=== PATIENT | male | born 1935 | race Two or more races ===

== ENCOUNTER 2021-06-07 11:47 | Inpatient (IN) | payer MEDICARE, OTHER ==
[~2021-06-07] VITALS: Ht 157.5 cm; Wt 87.1 kg
[~2021-06-07 11:47] MED LIST: ENOXAPARIN SODIUM 80 MG/0.8 ML DISP.SYRIN SQ SCH
[2021-06-07 12:33] LABS: BASOPHILS % (AUTO) 0.2 % (0.0-2.0); EOSINOPHILS % (AUTO) 1.8 % (0.0-6.0); HEMATOCRIT 41 % (39-51); HEMOGLOBIN 13.1 g/dL (13.5-17.5); LYMPHOCYTES # (AUTO) 1.2 K/uL (0.8-4.8); LYMPHOCYTES % (AUTO) 9.2 % (20.0-44.0); MEAN CORPUSCULAR HGB CONC 32 g/dl (31.0-36.0); MEAN CORPUSCULAR VOLUME 92 fL (80-96); MONOCYTES # (AUTO) 1.4 K/uL (0.1-1.30); MONOCYTES % (AUTO) 10.6 % (2.0-12.0); NEUTROPHILS # (AUTO) 10.1 K/uL (1.8-8.9); NEUTROPHILS % (AUTO) 78.2 % (43.0-81.0); PLATELET COUNT (AUTO) 194 K/uL (150-450); RED BLOOD CELL COUNT(AUTO) 4.43 MIL/uL (4.5-6.0)
[2021-06-07] MEDS ORDERED: LISI10TA29 PO (13:05)
[2021-06-07] MEDS ORDERED: OMEP20CA15 PO (13:05)
[2021-06-07] MEDS ORDERED: SITA1TAB2 PO (13:05)
[2021-06-07] MEDS ORDERED: AZITHROMYCIN 500 MG in IV D5W 250 ML IV ONE (13:30)
[2021-06-07] MEDS ORDERED: ASPIRIN 81 MG TAB.CHEW PO ONE (13:30)
[2021-06-07] MEDS ORDERED: FUROSEMIDE 40 MG/4 ML VIAL IV ONE (13:30)
[2021-06-07 13:41] LABS: CALCIUM, SERUM 8.8 mg/dL (8.5-10.1); CARBON DIOXIDE 32 mmol/L (21-32); CHLORIDE 101 mmol/L (98-107); CREATININE 0.8 mg/dL (0.6-1.3); GLUCOSE 175 mg/dL (74-106); SODIUM SERUM 137 mmol/L (136-145); UREA NITROGEN, BLOOD 17 mg/dL (7-18)
[2021-06-07] MEDS: CEFTRIAXONE 1 G in IV D5W 50 ML IV ONE ×2 (13:45→14:45)
[2021-06-07] MEDS ORDERED: ASPIRIN 81 MG TAB.CHEW ONE (13:46)
[2021-06-07] MEDS ORDERED: FUROSEMIDE 40 MG/4 ML VIAL ONE (13:47)
[2021-06-07] MEDS ORDERED: MAGNESIUM HYDROXIDE 30 ML UDC PO PRN (15:30)
[2021-06-07] MEDS ORDERED: ENOXAPARIN SODIUM 40 MG/0.4 ML DISP.SYRIN SQ SCH (15:30)
[2021-06-07] MEDS ORDERED: Z GUARD REMEDY 4 OZ OINT TP PRN (15:30)
[2021-06-07] MEDS ORDERED: DEXTROSE 50%-WATER 50 ML DISP.SYRIN IV PRN (15:30)
[2021-06-07] MEDS ORDERED: ACETAMINOPHEN 325 MG TABLET PO PRN (15:30)
[2021-06-07] MEDS ORDERED: ONDANSETRON HCL/PF 4 MG/2 ML VIAL IVP PRN (15:30)
[2021-06-07] MEDS ORDERED: MAG HYDROX/AL HYDROX/SIMETH 30 ML UDC PO PRN (15:30)
[2021-06-07 16:00] VITALS: BP 137/78
[2021-06-07] MEDS: BLOOD SUGAR DIAGNOSTIC 1 EACH STRIP VI SCH ×2 (17:30→21:53)
[2021-06-07] MEDS: FUROSEMIDE 40 MG/4 ML VIAL IV SCH (17:43)
[2021-06-07] MEDS: NITROGLYCERIN PACKET 1 GM PACKET TOP SCH (18:32)
[2021-06-07] MEDS: INSULIN REGULAR, HUMAN 100 UNIT/ML 3 ML VIAL SQ PRN (18:34)
[2021-06-07 20:00] VITALS: BP 168/89
[2021-06-08] VITALS (7 sets, daily range): BP systolic 100–139; BP diastolic 59–74
[2021-06-08] MEDS: NITROGLYCERIN PACKET 1 GM PACKET TOP SCH ×5 (00:22→23:37)
[2021-06-08 06:31] LABS: BASOPHILS # (AUTO) 0.1 K/uL (0.0-0.2); BASOPHILS % (AUTO) 0.8 % (0.0-2.0); EOSINOPHILS % (AUTO) 2.8 % (0.0-6.0); HEMATOCRIT 40 % (39-51); HEMOGLOBIN 13.2 g/dL (13.5-17.5); LYMPHOCYTES # (AUTO) 1.8 K/uL (0.8-4.8); LYMPHOCYTES % (AUTO) 17.2 % (20.0-44.0); MEAN CORPUSCULAR HGB CONC 33 g/dl (31.0-36.0); MEAN CORPUSCULAR VOLUME 91 fL (80-96); MONOCYTES # (AUTO) 1.4 K/uL (0.1-1.30); MONOCYTES % (AUTO) 13.4 % (2.0-12.0); NEUTROPHILS # (AUTO) 6.7 K/uL (1.8-8.9); NEUTROPHILS % (AUTO) 65.8 % (43.0-81.0); PLATELET COUNT (AUTO) 189 K/uL (150-450); RED BLOOD CELL COUNT(AUTO) 4.43 MIL/uL (4.5-6.0); WHITE BLOOD COUNT (AUTO) 10.2 K/uL (4.3-11.0)
[2021-06-08] MEDS ORDERED: AMIODARONE 450 MG in IV D5W 250 ML IV PRN (07:30)
[2021-06-08] MEDS: BLOOD SUGAR DIAGNOSTIC 1 EACH STRIP VI SCH ×4 (07:30→21:47)
[2021-06-08 07:53] LABS: CALCIUM, SERUM 9.3 mg/dL (8.5-10.1); CREATININE 0.9 mg/dL (0.6-1.3); MAGNESIUM 2.3 mg/dL (1.8-2.4); PHOSPHORUS 3.7 mg/dL (2.5-4.9); POTASSIUM 3.4 mmol/L (3.5-5.1)
[2021-06-08] MEDS ORDERED: AMIODARONE 150 MG in IV D5W 100 ML IV ONE (08:00)
[2021-06-08] MEDS ORDERED: POTASSIUM CHLORIDE 20 MEQ TAB.PRT.SR PO SCH (08:00)
[2021-06-08] MEDS: ENOXAPARIN SODIUM 80 MG/0.8 ML DISP.SYRIN SQ SCH ×2 (09:20→21:42)
[2021-06-08] MEDS: PANTOPRAZOLE 40 MG TABLET.DR PO SCH (09:21)
[2021-06-08] MEDS: LISINOPRIL (10MG) 10 MG TABLET PO SCH (09:21)
[2021-06-08] MEDS: ATORVASTATIN 10 MG TABLET PO SCH (09:21)
[2021-06-08] MEDS: FUROSEMIDE 40 MG/4 ML VIAL IV SCH ×4 (09:24→15:30)
[2021-06-08] MEDS: AMIODARONE 450 MG in IV D5W 250 ML IV PRN ×2 (09:43→15:45)
[2021-06-08 09:50] LABS: CHOLESTEROL 114 mg/dL (<200); HDL CHOLESTEROL 36 mg/dL (40-60); LDL 65 mg/dL (0-99); THYROID STIMULATING HORMONE 2.674 uIU/mL (0.358-3.74); TRIGLYCERIDES 81 mg/dL (30-150)
[2021-06-08] MEDS ORDERED: POTASSIUM CHLORIDE 20 MEQ TAB.PRT.SR PO ONE (10:00)
[2021-06-08 10:55] LABS: MAGNESIUM 2.2 mg/dL (1.8-2.4); PHOSPHORUS 3.8 mg/dL (2.5-4.9)
[2021-06-08] MEDS: INSULIN REGULAR, HUMAN 100 UNIT/ML 3 ML VIAL SQ PRN ×2 (12:31→17:44)
[2021-06-08] MEDS ORDERED: FUROSEMIDE 40 MG/4 ML VIAL IV SCH (18:00)
[2021-06-08] MEDS: *INSULIN REGULAR(HUMULIN R)HUM 100 UNIT/ML VIAL SQ PRN (21:49)
[2021-06-09] VITALS: BP 150/57
[2021-06-09 04:00] VITALS: BP 116/65
[2021-06-09] MEDS: NITROGLYCERIN PACKET 1 GM PACKET TOP SCH ×3 (05:30→17:32)
[2021-06-09] MEDS: BLOOD SUGAR DIAGNOSTIC 1 EACH STRIP VI SCH ×4 (06:36→21:29)
[2021-06-09] MEDS: INSULIN REGULAR, HUMAN 100 UNIT/ML 3 ML VIAL SQ PRN (06:37)
[2021-06-09 06:50] LABS: BASOPHILS % (AUTO) 0.2 % (0.0-2.0); EOSINOPHILS % (AUTO) 2.5 % (0.0-6.0); HEMATOCRIT 39 % (39-51); HEMOGLOBIN 12.8 g/dL (13.5-17.5); LYMPHOCYTES # (AUTO) 1.9 K/uL (0.8-4.8); LYMPHOCYTES % (AUTO) 19.7 % (20.0-44.0); MEAN CORPUSCULAR HGB CONC 33 g/dl (31.0-36.0); MEAN CORPUSCULAR VOLUME 91 fL (80-96); MONOCYTES # (AUTO) 1.2 K/uL (0.1-1.30); MONOCYTES % (AUTO) 12.6 % (2.0-12.0); NEUTROPHILS # (AUTO) 6.4 K/uL (1.8-8.9); PLATELET COUNT (AUTO) 194 K/uL (150-450); RED BLOOD CELL COUNT(AUTO) 4.25 MIL/uL (4.5-6.0); WHITE BLOOD COUNT (AUTO) 9.8 K/uL (4.3-11.0)
[2021-06-09 07:19] LABS: ALANINE AMINOTRANSFERASE 19 U/L (12-78); ALBUMIN 3.2 g/dL (3.4-5.0); ALKALINE PHOSPHATASE 100 U/L (46-116); ASPARTATE AMINOTRANSFERASE 18 U/L (15-37); CALCIUM, SERUM 9.4 mg/dL (8.5-10.1); CARBON DIOXIDE 31 mmol/L (21-32); CHLORIDE 102 mmol/L (98-107); CREATININE 0.9 mg/dL (0.6-1.3); GLUCOSE 150 mg/dL (74-106); MAGNESIUM 2.2 mg/dL (1.8-2.4); PHOSPHORUS 4.3 mg/dL (2.5-4.9); POTASSIUM 3.3 mmol/L (3.5-5.1); SODIUM SERUM 142 mmol/L (136-145); TOTAL PROTEIN, SERUM 6.6 g/dL (6.4-8.2); UREA NITROGEN, BLOOD 25 mg/dL (7-18)
[2021-06-09 08:23] VITALS: BP 119/82
[2021-06-09] MEDS: ATORVASTATIN 10 MG TABLET PO SCH (08:35)
[2021-06-09] MEDS: PANTOPRAZOLE 40 MG TABLET.DR PO SCH (08:35)
[2021-06-09] MEDS: LISINOPRIL (10MG) 10 MG TABLET PO SCH (08:36)
[2021-06-09] MEDS: ENOXAPARIN SODIUM 80 MG/0.8 ML DISP.SYRIN SQ SCH ×2 (08:37→21:22)
[2021-06-09] MEDS ORDERED: AMIODARONE HCL 200 MG TABLET PO SCH (09:00)
[2021-06-09] MEDS: POTASSIUM CHLORIDE 20 MEQ TAB.PRT.SR PO SCH ×2 (09:07→09:58)
[2021-06-09] MEDS: AMIODARONE HCL 200 MG TABLET PO SCH ×3 (09:07→16:25)
[2021-06-09] MEDS ORDERED: FUROSEMIDE 40 MG/4 ML VIAL IV SCH (10:30)
[2021-06-09] MEDS: FUROSEMIDE 40 MG TABLET PO SCH ×3 (11:07→18:05)
[2021-06-09 12:00] VITALS: BP 128/70
[2021-06-09 16:09] VITALS: BP 120/74
[2021-06-09] MEDS: WARFARIN SODIUM 5 MG TABLET PO SCH (16:29)
[2021-06-09 20:00] VITALS: BP 142/62
[2021-06-09] MEDS: *INSULIN REGULAR(HUMULIN R)HUM 100 UNIT/ML VIAL SQ PRN (21:34)
[2021-06-10] VITALS: BP 122/78
[2021-06-10] MEDS: NITROGLYCERIN PACKET 1 GM PACKET TOP SCH ×4 (00:16→17:04)
[2021-06-10 04:00] VITALS: BP 120/59
[2021-06-10 05:50] LABS: BASOPHILS % (AUTO) 0.2 % (0.0-2.0); EOSINOPHILS % (AUTO) 3.9 % (0.0-6.0); HEMATOCRIT 36 % (39-51); HEMOGLOBIN 12.1 g/dL (13.5-17.5); LYMPHOCYTES # (AUTO) 1.5 K/uL (0.8-4.8); LYMPHOCYTES % (AUTO) 16.2 % (20.0-44.0); MEAN CORPUSCULAR HGB CONC 34 g/dl (31.0-36.0); MEAN CORPUSCULAR VOLUME 90 fL (80-96); MONOCYTES # (AUTO) 1.4 K/uL (0.1-1.30); MONOCYTES % (AUTO) 14.7 % (2.0-12.0); PLATELET COUNT (AUTO) 192 K/uL (150-450); RED BLOOD CELL COUNT(AUTO) 3.99 MIL/uL (4.5-6.0); WHITE BLOOD COUNT (AUTO) 9.3 K/uL (4.3-11.0)
[2021-06-10 06:19] LABS: ALANINE AMINOTRANSFERASE 20 U/L (12-78); ALBUMIN 3.4 g/dL (3.4-5.0); ALKALINE PHOSPHATASE 102 U/L (46-116); ASPARTATE AMINOTRANSFERASE 15 U/L (15-37); BILIRUBIN,TOTAL 1.1 mg/dL (0.2-1.0); CALCIUM, SERUM 10.1 mg/dL (8.5-10.1); CARBON DIOXIDE 33 mmol/L (21-32); CHLORIDE 101 mmol/L (98-107); GLUCOSE 182 mg/dL (74-106); MAGNESIUM 2.2 mg/dL (1.8-2.4); PHOSPHORUS 4.4 mg/dL (2.5-4.9); POTASSIUM 3.7 mmol/L (3.5-5.1); SODIUM SERUM 140 mmol/L (136-145); TOTAL PROTEIN, SERUM 6.8 g/dL (6.4-8.2); UREA NITROGEN, BLOOD 26 mg/dL (7-18)
[2021-06-10] MEDS: BLOOD SUGAR DIAGNOSTIC 1 EACH STRIP VI SCH ×4 (06:28→21:37)
[2021-06-10] MEDS: INSULIN REGULAR, HUMAN 100 UNIT/ML 3 ML VIAL SQ PRN (06:30)
[2021-06-10 08:08] VITALS: BP 112/66
[2021-06-10] MEDS: PANTOPRAZOLE 40 MG TABLET.DR PO SCH (08:30)
[2021-06-10] MEDS: LISINOPRIL (10MG) 10 MG TABLET PO SCH (08:31)
[2021-06-10] MEDS: AMIODARONE HCL 200 MG TABLET PO SCH ×3 (08:32→17:00)
[2021-06-10] MEDS: ATORVASTATIN 10 MG TABLET PO SCH (08:32)
[2021-06-10] MEDS: ENOXAPARIN SODIUM 80 MG/0.8 ML DISP.SYRIN SQ SCH ×2 (08:33→21:37)
[2021-06-10] MEDS ORDERED: WARF5TAB8 PO (09:23)
[2021-06-10] MEDS ORDERED: RXENO SQ (09:23)
[2021-06-10] MEDS ORDERED: AMIO200T7 PO (09:23)
[2021-06-10] MEDS ORDERED: FUROSEMIDE 100 MG/10 ML VIAL IV SCH (10:30)
[2021-06-10] MEDS: POTASSIUM CHLORIDE 20 MEQ TAB.PRT.SR PO SCH ×3 (11:11→12:46)
[2021-06-10] MEDS: FUROSEMIDE 40 MG TABLET PO SCH ×3 (11:11→18:02)
[2021-06-10 15:56] VITALS: BP 130/71
[2021-06-10] MEDS: WARFARIN SODIUM 5 MG TABLET PO SCH (17:02)
[2021-06-10 20:00] VITALS: BP 128/76
[2021-06-10] MEDS: *INSULIN REGULAR(HUMULIN R)HUM 100 UNIT/ML VIAL SQ PRN (21:39)
[2021-06-11] MEDS: NITROGLYCERIN PACKET 1 GM PACKET TOP SCH ×2 (00:02→05:22)
[2021-06-11] MEDS: BLOOD SUGAR DIAGNOSTIC 1 EACH STRIP VI SCH ×2 (06:31→11:58)
[2021-06-11 06:54] LABS: BASOPHILS % (AUTO) 0.1 % (0.0-2.0); EOSINOPHILS % (AUTO) 2.9 % (0.0-6.0); HEMATOCRIT 37 % (39-51); HEMOGLOBIN 12.5 g/dL (13.5-17.5); LYMPHOCYTES # (AUTO) 1.4 K/uL (0.8-4.8); LYMPHOCYTES % (AUTO) 15.3 % (20.0-44.0); MEAN CORPUSCULAR HGB CONC 33 g/dl (31.0-36.0); MEAN CORPUSCULAR VOLUME 91 fL (80-96); MONOCYTES # (AUTO) 1.2 K/uL (0.1-1.30); MONOCYTES % (AUTO) 13.2 % (2.0-12.0); NEUTROPHILS # (AUTO) 6.4 K/uL (1.8-8.9); NEUTROPHILS % (AUTO) 68.5 % (43.0-81.0); PLATELET COUNT (AUTO) 201 K/uL (150-450); RED BLOOD CELL COUNT(AUTO) 4.11 MIL/uL (4.5-6.0); WHITE BLOOD COUNT (AUTO) 9.4 K/uL (4.3-11.0)
[2021-06-11 07:20] LABS: ALANINE AMINOTRANSFERASE 17 U/L (12-78); ALBUMIN 3.4 g/dL (3.4-5.0); ALKALINE PHOSPHATASE 102 U/L (46-116); ASPARTATE AMINOTRANSFERASE 17 U/L (15-37); CALCIUM, SERUM 9.4 mg/dL (8.5-10.1); CARBON DIOXIDE 34 mmol/L (21-32); CHLORIDE 99 mmol/L (98-107); CREATININE 1.1 mg/dL (0.6-1.3); GLUCOSE 161 mg/dL (74-106); MAGNESIUM 2.1 mg/dL (1.8-2.4); POTASSIUM 3.8 mmol/L (3.5-5.1); SODIUM SERUM 139 mmol/L (136-145); TOTAL PROTEIN, SERUM 6.8 g/dL (6.4-8.2); UREA NITROGEN, BLOOD 26 mg/dL (7-18)
[2021-06-11 08:00] VITALS: BP 120/40
[2021-06-11] MEDS: PANTOPRAZOLE 40 MG TABLET.DR PO SCH (08:28)
[2021-06-11] MEDS: ENOXAPARIN SODIUM 80 MG/0.8 ML DISP.SYRIN SQ SCH (08:28)
[2021-06-11] MEDS: ATORVASTATIN 10 MG TABLET PO SCH (08:28)
[2021-06-11] MEDS: LISINOPRIL (10MG) 10 MG TABLET PO SCH (08:29)
[2021-06-11] MEDS: AMIODARONE HCL 200 MG TABLET PO SCH ×2 (08:29→13:00)
[2021-06-11] MEDS ORDERED: POTASSIUM CHLORIDE 10 MEQ TABLET.SA PO SCH (09:00)
[2021-06-11] MEDS ORDERED: FUROSEMIDE 40 MG TABLET PO SCH (09:00)
[2021-06-11 13:00] VITALS: BP 100/58
== END 2021-06-11 16:54 | disposition home health service (06) | DRG 291 ==
LOC: ER 11:54 → TELE 15:15 → TELE-TD 06-08 08:59 → TELE 06-08 18:39 → MED 06-10 09:00
PROVIDERS: ADMIT Internal Medicine; ATTEND Internal Medicine
PROC: 05HB33Z Insertion of Infusion Device into Right Basilic Vein, Percutaneous Approach (ICD-10-PCS; principal; 2021-06-08)
DX: I11.0 Hypertensive heart disease with heart failure (principal); J96.01 Acute respiratory failure with hypoxia; I50.31 Acute diastolic (congestive) heart failure; I48.91 Unspecified atrial fibrillation; I16.0 Hypertensive urgency; I25.10 Atherosclerotic heart disease of native coronary artery without angina pectoris; K21.9 Gastro-esophageal reflux disease without esophagitis; E11.9 Type 2 diabetes mellitus without complications; Z20.822 Contact with and (suspected) exposure to COVID-19; Z79.84 Long term (current) use of oral hypoglycemic drugs; Z79.899 Other long term (current) drug therapy; I05.0 Rheumatic mitral stenosis; I10 Essential (primary) hypertension; I70.0 Atherosclerosis of aorta; E66.9 Obesity, unspecified; Z68.35 Body mass index [BMI] 35.0-35.9, adult; I27.20 Pulmonary hypertension, unspecified; H40.9 Unspecified glaucoma; H54.62 Unqualified visual loss, left eye, normal vision right eye
CPT/HCPCS: 36415; 71045-TC; 80048-TC; 80053-TC; 80061-TC; 82962-TC; 83735-TC; 83880; 84100-TC; 84439-TC; 84443-TC; 84484-TC; 85025-TC; 85610-TC; 87040-TC; 87081-TC; 93307-TC; 93970-TC; A6253; C9803; G0378; J0282; J0456; J0696; J1650; J1815; J1940; J7060

== ENCOUNTER 2021-06-14 11:54 | Inpatient (IN) | payer MEDICARE, OTHER ==
[~2021-06-14] VITALS: Ht 162.6 cm; Wt 80.3 kg
[~2021-06-14 11:54] MED LIST changes: +AMIO200T7 PO; -ENOXAPARIN SODIUM 80 MG/0.8 ML DISP.SYRIN SQ SCH; +LISI10TA29 PO; +OMEP20CA15 PO; +RXENO SQ; +SITA1TAB2 PO; +WARF5TAB8 PO
--- NOTE | 2021-06-14 12:00 | NUR ---
[id number] HOME, [facility] AT 3AM C/O L HIP/ LLE PAIN, +SWELLING. BG 290 PLASTIC PARTS FABRICATOR, FOUND BY SON UNABLE TO TO GET UP. THE PATIENT IS ALERT AND ORIENTED X2. DENIES SOB. RESPIRATION REGULAR AND UNLABORED. ATTACHED TO THE MONITOR. WARM BLANKET PROVIDED FOR COMFORT. WILL CONTINUE TO MONITOR THE PATIENT.
--- NOTE | 2021-06-14 12:10 | NUR ---
DR DASILVA AT THE BEDSIDE
[2021-06-14] MEDS ORDERED: ONDANSETRON HCL/PF 4 MG/2 ML VIAL ONE (12:14)
[2021-06-14] MEDS ORDERED: MORPHINE SULFATE INJ 4 MG/ML DISP.SYRIN ONE (12:14)
[2021-06-14] MEDS ORDERED: MORPHINE SULFATE INJ 2 MG/ML DISP.SYRIN IV ONE (12:30)
[2021-06-14] MEDS ORDERED: ONDANSETRON HCL/PF 4 MG/2 ML VIAL IVP ONE (12:30)
[2021-06-14 12:37] LABS: BASOPHILS % (AUTO) 0.1 % (0.0-2.0); HEMATOCRIT 38 % (39-51); LYMPHOCYTES # (AUTO) 0.6 K/uL (0.8-4.8); LYMPHOCYTES % (AUTO) 2.3 % (20.0-44.0); MEAN CORPUSCULAR HGB CONC 32 g/dl (31.0-36.0); MEAN CORPUSCULAR VOLUME 91 fL (80-96); MONOCYTES # (AUTO) 1.3 K/uL (0.1-1.30); MONOCYTES % (AUTO) 5.2 % (2.0-12.0); NEUTROPHILS # (AUTO) 23.2 K/uL (1.8-8.9); NEUTROPHILS % (AUTO) 91.4 % (43.0-81.0); PLATELET COUNT (AUTO) 255 K/uL (150-450); RED BLOOD CELL COUNT(AUTO) 4.14 MIL/uL (4.5-6.0); WHITE BLOOD COUNT (AUTO) 25.4 K/uL (4.3-11.0)
[2021-06-14 12:45] LABS: CALCIUM, SERUM 11.7 mg/dL (8.5-10.1); CARBON DIOXIDE 31 mmol/L (21-32); CHLORIDE 98 mmol/L (98-107); CREATININE 1.5 mg/dL (0.6-1.3); GLUCOSE 259 mg/dL (74-106); POTASSIUM 3.7 mmol/L (3.5-5.1); SODIUM SERUM 140 mmol/L (136-145); UREA NITROGEN, BLOOD 39 mg/dL (7-18)
--- NOTE | 2021-06-14 13:10 | NUR ---
covid antigen swab done and sent to the lab
[2021-06-14] MEDS ORDERED: FURO40TA5 PO (13:21)
[2021-06-14] MEDS ORDERED: ATOR10TA PO (13:21)
[2021-06-14] MEDS ORDERED: AMIO200T5 (13:21)
[2021-06-14] MEDS ORDERED: ZOLPIDEM TARTRATE 5 MG TABLET PO PRN (15:00)
[2021-06-14] MEDS ORDERED: Z GUARD REMEDY 4 OZ OINT TP PRN (15:00)
[2021-06-14] MEDS ORDERED: MAGNESIUM HYDROXIDE 30 ML UDC PO PRN (15:00)
[2021-06-14] MEDS ORDERED: ONDANSETRON HCL/PF 4 MG/2 ML VIAL IVP PRN (15:00)
[2021-06-14] MEDS ORDERED: MAG HYDROX/AL HYDROX/SIMETH 30 ML UDC PO PRN (15:00)
[2021-06-14] MEDS: IV D5/0.45 NACL 1,000 ML IV PRN (16:32)
[2021-06-14] MEDS: CEFTRIAXONE 1 G in IV D5W 50 ML IV SCH (16:32)
[2021-06-14] MEDS ORDERED: HEPARIN INFUSION/D5W 500 ML IV PRN ×2 (17:30→20:00)
--- NOTE | 2021-06-14 17:42 | NUR ---
ROOM 309-2
--- NOTE | 2021-06-14 17:54 | NUR ---
FAXED HEPARIN FORM TO PHARMACY
--- NOTE | 2021-06-14 17:55 | NUR ---
PER POOL TABLE MECHANIC KEH TO GIVEN 5000 UNITS OF HEPARIN BOLUS INSTEAD OF 5670 AND START HERAPIN AT 1215 UNITS/HR.
--- NOTE | 2021-06-14 18:01 | NUR ---
REPORT GIVEN TO NURSE NELLIE FOR MUMTAZ
--- NOTE | 2021-06-14 18:15 | NUR ---
THE PATIENT IS TRANSFERED TO ROOM 309-2 IN STABLE CONDITION AND PER ACLS POLICY. HEPARIN NOT READY FROM PHARM YET. NURSE NELLIE IS ENDORSED.
--- NOTE | 2021-06-14 18:23 | NUR ---
awaiting for coagulation result to start heparin drip, lab called and informed to post results maggi.
--- NOTE | 2021-06-14 18:33 | NUR ---
spoke with Sam from pharmacy to conform heparin order, according to Sam in order to start drip we need baseline coagulation result. Heparin will be provided from pharmacy after ptt result.
--- NOTE | 2021-06-14 18:45 | NUR ---
dermatology nurse practitioner at bedside for ptt lab
--- NOTE | 2021-06-14 19:30 | NUR ---
COMMERCIAL REAL ESTATE LENDER NOTE: RECEIVED CALL FROM LAB FOR CRITICAL RESULT: INR > 10.0. MESSAGE SENT TO BOTH AM SHIFT AND PM SHIFT HOSPITALIST, TRANG AND SK RESPECTIVELY.
--- NOTE | 2021-06-14 19:48 | NUR ---
OUTSIDE MAINTENANCE WORKER NOTE: PER HOSPITALIST SK NOTIFY MICRO LAB ANALYST OF CRITICAL LAB RESULTS. SENT MESSAGE TO DR. CANADA AT 2005
--- NOTE | 2021-06-14 19:48 | NUR ---
VALET RUNNER NOTE: PER HOSPITALIST MK HOLD HEPARIN AND REDRAW APTT, PT INR IN AM. PER HOSPITALIST SK HOLD HEPARIN.
[2021-06-14 20:00] VITALS: BP 95/60
[2021-06-14] MEDS ORDERED: VANCOMYCIN 1.25 GM in IV D5W 250 ML IV ONE (20:00)
--- NOTE | 2021-06-14 20:00 | NUR ---
CHEMICAL MANAGER NOTE: SPOKE WITH PHARMACIST WILLIAM AT THIS TIME NOTIFYING HIM OF AFOREMENTIONED HOSPITALIST PLAN R/T HOLDING HEPARIN INFUSION UNTIL AM COAGULATION RESULTS RECEIVED AND HOSPITALIST/FERMENTATION MANAGER WILL REASSESS.
[2021-06-14] MEDS: ATORVASTATIN 10 MG TABLET PO SCH (22:22)
--- NOTE | 2021-06-14 22:40 | NUR ---
TELEPHONE EXCHANGE OPERATOR NOTE: ENFORCEMENT OFFICER DINORA CALLED FOR CRITICAL LAB RESULT: 3RD TROPONIN LEVEL 5.023. MESSAGED HOSPITALIST SK RELAYING INFORMATION. RESPONSE PENDING. SENT MESSAGE TO DIRECTOR OF FIRST IMPRESSIONS DR. CANADA.
--- NOTE | 2021-06-14 22:48 | NUR ---
ELECTRONIC DATA PROCESSING AUDITOR NOTE: NEW ORDER TROPONIN DRAW IN 6 HRS PER HOSPITALIST SK.
--- NOTE | 2021-06-14 23:18 | NUR ---
HOTBED TRANSFER OPERATOR NOTE: PER DR. CANADA: "CANCEL TROPONIN."
[2021-06-14] MEDS: HYDROMORPHONE INJ 2 MG/ML DISP.SYRIN IV PRN (23:57)
[2021-06-15] VITALS: BP 108/44
[2021-06-15] MEDS ORDERED: INSULIN REGULAR, HUMAN 100 UNIT/ML 10 ML VIAL SQ SCH (01:30)
[2021-06-15] MEDS ORDERED: DEXTROSE 50%-WATER 50 ML DISP.SYRIN IV PRN (01:30)
[2021-06-15] MEDS: BLOOD SUGAR DIAGNOSTIC 1 EACH STRIP IN SCH ×5 (01:49→21:19)
[2021-06-15] MEDS: INSULIN REGULAR, HUMAN 100 UNIT/ML 3 ML VIAL SQ PRN ×5 (01:53→21:49)
--- NOTE | 2021-06-15 01:57 | NUR ---
UNIFORM PATROL POLICE OFFICER NOTE: PATIENT PULLED OUT R AC IV. NEW IV ACCESS STARTED TO R INNER FA/WRIST, 22 GAUGE ON FIRST ATTEMPT.
--- NOTE | 2021-06-15 03:00 | NUR ---
SURVEY AND MAPPING TECHNICIAN NOTE: 16F F/C INSERTED VIA STERILE TECHNIQUE. SAMPLE OBTAINED FOR UA/C&S, URINE SLIGHTLY CLOUDY YELLOW IN APPEARANCE, NO FOUL ODOR NOTED. F/C DRAINING TO GRAVITY BAG.
[2021-06-15 04:00] VITALS: BP 102/52
[2021-06-15] MEDS: HYDROMORPHONE INJ 2 MG/ML DISP.SYRIN IV PRN ×2 (05:35→10:14)
[2021-06-15 06:25] LABS: BILIRUBIN,URINE NEGATIVE (NEGATIVE); COLOR,URINE YELLOW (YELLOW); LEUKOCYTE ESTERASE ,URINE NEGATIVE (NEGATIVE); NITRITE, URINE NEGATIVE (NEGATIVE); PROTEIN,URINE NEGATIVE (NEGATIVE); UGLUCOSE NEGATIVE (NEGATIVE); UROBILINOGEN,URINE 0.2 EU/dL (0.2)
[2021-06-15 06:55] LABS: BASOPHILS % (AUTO) 0.1 % (0.0-2.0); EOSINOPHILS % (AUTO) 3.7 % (0.0-6.0); HEMATOCRIT 28 % (39-51); HEMOGLOBIN 9.3 g/dL (13.5-17.5); LYMPHOCYTES # (AUTO) 1.5 K/uL (0.8-4.8); LYMPHOCYTES % (AUTO) 11.9 % (20.0-44.0); MEAN CORPUSCULAR HGB CONC 33 g/dl (31.0-36.0); MEAN CORPUSCULAR VOLUME 91 fL (80-96); MONOCYTES # (AUTO) 1.3 K/uL (0.1-1.30); MONOCYTES % (AUTO) 10.9 % (2.0-12.0); NEUTROPHILS % (AUTO) 73.4 % (43.0-81.0); PLATELET COUNT (AUTO) 192 K/uL (150-450); RED BLOOD CELL COUNT(AUTO) 3.11 MIL/uL (4.5-6.0); WHITE BLOOD COUNT (AUTO) 12.3 K/uL (4.3-11.0)
[2021-06-15 06:59] LABS: D-DIMER 3.35 mg/L(FEU (0.17-0.50)
[2021-06-15 07:04] LABS: CALCIUM, SERUM 10.1 mg/dL (8.5-10.1); CARBON DIOXIDE 33 mmol/L (21-32); CHLORIDE 101 mmol/L (98-107); CREATININE 1.6 mg/dL (0.6-1.3); GLUCOSE 209 mg/dL (74-106); MAGNESIUM 1.9 mg/dL (1.8-2.4); POTASSIUM 3.6 mmol/L (3.5-5.1); SODIUM SERUM 141 mmol/L (136-145); UREA NITROGEN, BLOOD 43 mg/dL (7-18)
[2021-06-15 07:16] LABS: BACTERIA,URINE None seen /HPF (None Seen); SQUAMOUS EPITHELIAL CELL,UR Few /HPF (None Seen); WBC,URINE 0-2 /HPF (0-3)
--- NOTE | 2021-06-15 07:25 | NUR ---
LIBRARY MONITOR NOTE: CRITICAL LAB RESULTS RECEIVED INR 10.7. MESSAGED HOSPITALIST AND COOKIE MIXER HELPER. RELAYED TO ONCOMING RN FOR MUMTAZ.
[2021-06-15] MEDS ORDERED: PANTOPRAZOLE 40 MG TABLET.DR PO SCH (07:30)
--- NOTE | 2021-06-15 07:48 | NUR ---
CORRUGATOR MACHINE OPERATOR CLOSING NOTES: REPORTED OFF TO ONCOMING RN. PATIENT IN BED EYES CLOSED, EASILY AROUSED BY TOUCH. ALERT AND ORIENTED X1. PRIMARILY ROMANIAN SPEAKING, UNDERSTANDS SOME SERBIAN. NC IN PLACE AT 2LPM. LUNG SOUNDS CTA AT THIS TIME. ADMINISTERED DILAUDID 1MG X2 DURING SHIFT FOR S/SX OF PAIN WITH EFFECTIVE RESULTS. TELEMETRY READING SR 66. R INNER FA PERIPHERAL IV RUNNING D5 1/2 NS @75ML/HR WITHOUT S/SX INFILTRATION/INFECTION. DRESSING CDI. LLE SWOLLEN THROUGHOUT. DISCERNIBLE EXTERNAL ROTATION AND LIMB SHORTENING OBSERVED. FALL, SAFETY AND ASPIRATION PRECAUTIONS IN PLACE. HOB ELEVATED TO SEMI-FOWLERS POSITION. SIDE RAILS UP X2. BED IN LOW, LOCKED POSITION.
[2021-06-15 08:00] VITALS: BP 80/56
[2021-06-15] MEDS: AMIODARONE HCL 200 MG TABLET PO SCH ×3 (08:00→16:12)
[2021-06-15 08:02] LABS: CREATINE KINASE, TOTAL 204 U/L (39-308)
[2021-06-15] MEDS ORDERED: LISINOPRIL (20MG) 20 MG TABLET PO SCH (09:00)
[2021-06-15] MEDS ORDERED: AMIODARONE HCL 200 MG TABLET PO SCH (09:00)
[2021-06-15] MEDS ORDERED: FUROSEMIDE 40 MG TABLET PO SCH (09:00)
--- NOTE | 2021-06-15 09:00 | NUR ---
RN NOTES SPOKE W/ SON ANEL ([phone]) AND UPDATED ABOUT PATIENT'S CONDITION/PROGRESS.
--- NOTE | 2021-06-15 12:00 | NUR ---
RN NOTES ABLE TO INSERT IV LINE ON LAC #20 INTACT AND PATENT.
--- NOTE | 2021-06-15 14:09 | NUR ---
RN NOTES PATIENT SEEN BY HALEY CHOW NP, MADE AWARE OF PLAN OF CARE.
[2021-06-15] MEDS: CEFTRIAXONE 1 G in IV D5W 50 ML IV SCH (15:20)
[2021-06-15 16:00] VITALS: BP 98/50
--- NOTE | 2021-06-15 17:53 | NUR ---
RN NOTES PATIENT W/ EPISODES OF TRYING TO PULL OUT IV LINES, ALVARADO CATHETER, REMOVING GOWN AND TELE MONITOR WIRES/LEADS. LEAST RESTRICTIVE MEASURES APPLIED BUT INEFFECTIVE PATIENT CONTINUES TO PULL OUT LINES, UNCOOPERATIVE W/ CARE. INFORMED BOX FOLDING MACHINE OPERATOR W/ RECOMMENDATION FOR BILATERAL SOFT WRIST RESTRAINTS. BOX FOLDING MACHINE OPERATOR AGREED AT THIS TIME.
--- NOTE | 2021-06-15 19:13 | NUR ---
UI SOFTWARE ENGINEER OPENING NOTES: RECEIVED REPORT AT PATIENT'S BEDSIDE FOR MUMTAZ. PATIENT IS AWAKE AND ORIENTED TO PERSON. CONFUSION CONTINUES. TELEMETRY READING SR 70'S, NAD AND STABLE AT THIS TIME. BILATERAL SOFT WRIST RESTRAINTS IN PLACE WITH TRIAL RELEASE PER PROTOCOL OBSERVED. PATIENT CONTINUES PULLING AT LINES DESPITE REINFORCED EDUCATION, DISTRACTION, DECREASED STIMULI, CLOSER TO NURSING STATION MEASURES ATTEMPTED. FLUIDS AND NUTRITION OFFERED. NO S/SX OF OVERT ACTIVE BLEEDING OBSERVED/REPORTED. BLEEDING PRECAUTIONS, ASPIRATION PRECAUTIONS; FALL, SAFETY, AND UNIVERSAL PRECAUTIONS IN PLACE: HOB ELEVATED TO SEMI-FOWLERS POSITION, BED LOW AND LOCKED, BED ALARM ON. CALL LIGHT WITHIN REACH.
[2021-06-15 19:56] VITALS: BP 134/66
[2021-06-15 20:00] VITALS: BP 134/66
[2021-06-15] MEDS: VANCOMYCIN 1 GM in IV D5W 250 ML IV SCH (20:58)
[2021-06-15] MEDS: ATORVASTATIN 10 MG TABLET PO SCH (21:19)
[2021-06-16] VITALS: BP 110/59
[2021-06-16] MEDS: IV D5/0.45 NACL 1,000 ML IV PRN ×2 (01:12→16:52)
[2021-06-16 04:00] VITALS: BP 104/54
[2021-06-16] MEDS: BLOOD SUGAR DIAGNOSTIC 1 EACH STRIP IN SCH ×4 (05:51→22:24)
--- NOTE | 2021-06-16 06:15 | NUR ---
BALANCE RECESSER OPENING NOTES: PATIENT IN BED AWAKE AND ORIENTED TO PERSON. CONFUSED AND AGITATED THROUGHOUT THE SHIFT. TELEMETRY READING SR. IV ACCESS TO R INNER FA 22G INFUSING D5 1/2 NS @50ML/HR. NO S/SX OF INFILTRATION/INFECTION TO OR SURROUNDED SITE. DRESSING C/D/I. IV ACCESS TO L AC 20 GAUGE SL, FLUSHED AND PATENT. NO S/SX INFILTRATION/INFECTION TO OR SURROUNDING SITE. DRESSING C/D/I. BILATERAL SOFT WRIST RESTRAINTS IN PLACE WITH TRIAL RELEASE PER PROTOCOL OBSERVED. PATIENT CONTINUES PULLING AT LINES DESPITE REINFORCED EDUCATION, DISTRACTION, DECREASED STIMULI, CLOSER TO NURSING STATION MEASURES ATTEMPTED. FLUIDS AND NUTRITION OFFERED. NO S/SX OF OVERT ACTIVE BLEEDING OBSERVED/REPORTED. BLEEDING PRECAUTIONS, ASPIRATION PRECAUTIONS; FALL, SAFETY, AND UNIVERSAL PRECAUTIONS IN PLACE: HOB ELEVATED TO SEMI-FOWLERS POSITION, BED LOW AND LOCKED, SIDE RAILS UP X2, BED ALARM ON. CALL LIGHT WITHIN REACH. Addendum: 06/16/21 at 0625 by TAMIKO LOYOLA RN CLOSING NOTE
--- NOTE | 2021-06-16 06:16 | NUR ---
PREVIOUS NOTATION IS CLOSING PM OPTICS TECHNICAL OFFICER
[2021-06-16] MEDS: INSULIN REGULAR, HUMAN 100 UNIT/ML 3 ML VIAL SQ PRN ×4 (06:37→22:31)
[2021-06-16 06:59] LABS: ALANINE AMINOTRANSFERASE 51 U/L (12-78); ALBUMIN 2.8 g/dL (3.4-5.0); ALKALINE PHOSPHATASE 89 U/L (46-116); ASPARTATE AMINOTRANSFERASE 46 U/L (15-37); BILIRUBIN,TOTAL 0.5 mg/dL (0.2-1.0); CALCIUM, SERUM 9.4 mg/dL (8.5-10.1); CARBON DIOXIDE 32 mmol/L (21-32); CHLORIDE 101 mmol/L (98-107); CREATININE 1.4 mg/dL (0.6-1.3); GLUCOSE 198 mg/dL (74-106); MAGNESIUM 1.7 mg/dL (1.8-2.4); PHOSPHORUS 3.1 mg/dL (2.5-4.9); POTASSIUM 3.4 mmol/L (3.5-5.1); SODIUM SERUM 141 mmol/L (136-145); TOTAL PROTEIN, SERUM 6.1 g/dL (6.4-8.2); UREA NITROGEN, BLOOD 37 mg/dL (7-18)
[2021-06-16 07:01] LABS: BASOPHILS % (AUTO) 0.1 % (0.0-2.0); EOSINOPHILS % (AUTO) 4.1 % (0.0-6.0); HEMATOCRIT 28 % (39-51); HEMOGLOBIN 9.2 g/dL (13.5-17.5); LYMPHOCYTES % (AUTO) 8.2 % (20.0-44.0); MEAN CORPUSCULAR HGB CONC 33 g/dl (31.0-36.0); MEAN CORPUSCULAR VOLUME 91 fL (80-96); MONOCYTES # (AUTO) 1.2 K/uL (0.1-1.30); MONOCYTES % (AUTO) 10.3 % (2.0-12.0); NEUTROPHILS # (AUTO) 9.1 K/uL (1.8-8.9); NEUTROPHILS % (AUTO) 77.3 % (43.0-81.0); PLATELET COUNT (AUTO) 180 K/uL (150-450); RED BLOOD CELL COUNT(AUTO) 3.04 MIL/uL (4.5-6.0); WHITE BLOOD COUNT (AUTO) 11.8 K/uL (4.3-11.0)
--- NOTE | 2021-06-16 07:21 | NUR ---
RELIGIOUS EDUCATION DIRECTOR OPENING NOTES: RECEIVED PATIENT AWAKE IN BED IN NO ACUTE SIGN SOF DISTRESS. HOB ELEVATED. A/O X1. CALM BUT CONFUSE AT THIS TIME. ON 02 VIA N/C AT 2LPM, TOLERATING WELL WITH NO SOB NOTED. PT WITH B/L WRIST RESTRAINTS WITH CIRCULATION WNL. CURRENT TELEMETRY READING SHOWS NSR, HR 76. IV ACCESS ON RFA #22G INTACT WITH IVF OF D5 1/2 NS @75ML/HR INFUSING WELL, NO S/SX OF INFILTRATION/INFECTION NOTED AT SITE. ALVARADO IN PACE ACTIVELY DRAINING CLEAR YELLOW URINE VIA GRAVITY. BLEEDING PRECAUTIONS, ASPIRATION AND FALL PRECAUTIONS IN PLACED: HOB ELEVATED, BED LOW AND LOCKED, SIDE RAILS UP X2, BED ALARM ON AND CALL LIGHT WITHIN REACH. WILL CONTINUE TO MONITOR PT CLOSELY.
[2021-06-16 08:00] VITALS: BP 146/53
--- NOTE | 2021-06-16 08:00 | NUR ---
RN NOTES RECEIVED CALL FROM MANAGER STORAGE MARY ANN FLETCHER THAT PT HAS CRITICAL HIGH TROPONIN 2.290, RADIATION PROTECTION SPECIALIST HALEY CHOW MADE AWARE AND ACKNOWLEDGED. NO NEW ORDER MADE AT THIS TIME.
[2021-06-16] MEDS: AMIODARONE HCL 200 MG TABLET PO SCH ×2 (08:21→16:29)
[2021-06-16] MEDS ORDERED: PANTOPRAZOLE 40 MG VIAL IV SCH (09:00)
[2021-06-16] MEDS ORDERED: POTASSIUM CHLORIDE 20 MEQ TAB.PRT.SR PO SCH (09:30)
--- NOTE | 2021-06-16 09:58 | NUR ---
RN NOTES RECEIVED CALL FROM CHUCKING LATHE OPERATOR MARY ANN FLETCHER THAT PT HAS CRITICAL HIGH INR 10, TRANSPORT DRIVER HALEY CHOW MADE AWARE AND ACKNOWLEDGED. NO NEW ORDER MADE AT THIS TIME.
[2021-06-16] MEDS: Magnesium 1GM/D5W 100ML PREMIX 100 ML IV SCH ×2 (10:09→11:31)
--- NOTE | 2021-06-16 10:22 | NUR ---
provided pt with rowan lor.
[2021-06-16 12:00] VITALS: BP 122/61
[2021-06-16] MEDS: CEFTRIAXONE 1 G in IV D5W 50 ML IV SCH (15:19)
[2021-06-16 16:00] VITALS: BP 118/77
[2021-06-16] MEDS: ENSURE ENLIVE 237 ML LIQUID (VANILLA) PO SCH (17:27)
--- NOTE | 2021-06-16 18:34 | NUR ---
DIRECTOR SALES TRAINING CLOSING NOTES: PATIENT AWAKE AND LYING AT MODERATE HIGH BACKREST POSITION. A/O X1. CONFUSED AND RESTLESS AT TIMES DURING THE DAY. ON 02 VIA N/C AT 2LPM, TOLERATING WELL, BREATHING EVEN AND UNLABORED. MAINTAINED PT ON B/L WRIST RESTRAINTS, CIRCULATION WNL. TELEMETRY READING SHOWS ST, HR 111 AT THIS TIME. IV ACCESSES ON RFA #22G AND LAC #20G BOTH INTACT AND PATENT, IVF OF D5 1/2 NS @75ML/HR INFUSING WELL TO LAC, NO S/SX OF INFILTRATION/INFECTION NOTED AT SITE NOTED. ALVARADO IN PACE AND ACTIVELY DRAINING CLEAR YELLOW URINE VIA GRAVITY, ALVARADO CARE DONE. PT TURNED AND REPOSITIONED Q 2HRS AND PRN. KEPT CLEAN, DRY AND COMFORTABLE AT ALL TIMES. ALL NEEDS AND CARE PROVIDED WELL. BLEEDING, ASPIRATION AND FALL PRECAUTIONS MAINTAINED: HOB ELEVATED, BED LOW AND LOCKED, SIDE RAILS UP X2, BED ALARM ON AND CALL LIGHT WITHIN REACH. WILL ENDORSE MUMTAZ TO AUTOMOBILE CONTRACT CLERK NURSE.
--- NOTE | 2021-06-16 18:46 | NUR ---
RN NOTES REPORTED BY MIDDLE SCHOOL LIBRARIAN THAT PT JUST STARTED HAVING A-FLUTTER, HR ON THE 80-100. PT OWITH NO S/S OF CARDIAC DISTRESS, EKG STAT ORDERED.
--- NOTE | 2021-06-16 18:58 | NUR ---
RN NOTES REPORTED TO HALEY CHOW REGARDING PT HAVING A-FLUTTER, HR ON THE 80'S. STILL AWAITING FOR EKG TO BE DONE, RT CALLED AND INFORMED THEM THAT STAT EKG NEEDS TO BE DONE. ENDORSED TO CORONER'S JUROR ALEXI MORRIS TO INFORM DR LOPEZ OF EKG RESULTS SOON IT'S DONE.
--- NOTE | 2021-06-16 19:20 | NUR ---
RN notes RT at the bedside for stat EKG.
--- NOTE | 2021-06-16 19:32 | NUR ---
RN notes Informed and notified Dr. Rogers regarding Pt had aflutter at 18:30 for a few seconds and EKG stat is ordered and done. EKG showed S. tachy. No new order received.
[2021-06-16 20:00] VITALS: BP 114/84
[2021-06-16] MEDS: VANCOMYCIN 1 GM in IV D5W 250 ML IV SCH (20:17)
[2021-06-16] MEDS: ATORVASTATIN 10 MG TABLET PO SCH (21:20)
[2021-06-17] VITALS (9 sets, daily range): BP systolic 115–152; BP diastolic 54–75
[2021-06-17] MEDS: IV D5/0.45 NACL 1,000 ML IV PRN (05:36)
--- NOTE | 2021-06-17 06:39 | NUR ---
RN CLOSING NOTES Patient A&Ox1 overnight, constantly fidgeting in bed trying to remove tubes lines and trying to get out of bed. However, cooperative with staff/care and calm when approached. Able to rest well once asleep. ST with Pacs on the monitor overnight 113. Mon patent and draining clear dark yellow urine. Bilateral soft wrist restraints released q2h for ROM and skin/circulation check, also q15min safety check/visualization. D51/2 NS currently infusing at 75cc/hr to LAC #20G. No s/s of bleeding. Tolerated IV ABX well, no adverse reactions. Currently resting in bed with no signs of distress.
[2021-06-17] MEDS: INSULIN REGULAR, HUMAN 100 UNIT/ML 3 ML VIAL SQ PRN ×4 (06:49→22:39)
[2021-06-17 06:54] LABS: BASOPHILS % (AUTO) 0.1 % (0.0-2.0); EOSINOPHILS % (AUTO) 4.9 % (0.0-6.0); HEMATOCRIT 25 % (39-51); HEMOGLOBIN 8.2 g/dL (13.5-17.5); LYMPHOCYTES # (AUTO) 0.9 K/uL (0.8-4.8); LYMPHOCYTES % (AUTO) 10.6 % (20.0-44.0); MEAN CORPUSCULAR HGB CONC 33 g/dl (31.0-36.0); MEAN CORPUSCULAR VOLUME 90 fL (80-96); MONOCYTES # (AUTO) 1.1 K/uL (0.1-1.30); NEUTROPHILS # (AUTO) 6.5 K/uL (1.8-8.9); NEUTROPHILS % (AUTO) 72.4 % (43.0-81.0); PLATELET COUNT (AUTO) 176 K/uL (150-450); RED BLOOD CELL COUNT(AUTO) 2.75 MIL/uL (4.5-6.0); WHITE BLOOD COUNT (AUTO) 8.9 K/uL (4.3-11.0)
[2021-06-17] MEDS: BLOOD SUGAR DIAGNOSTIC 1 EACH STRIP IN SCH ×4 (06:54→22:38)
--- NOTE | 2021-06-17 07:00 | NUR ---
SENIOR WIND TURBINE TECHNICIAN OPENING NOTES: RECEIVED PATIENT AWAKE IN BED WITH NO ACUTE SIGNS OF DISTRESS. HOB ELEVATED. A/O X 1. CALM BUT CONFUSED AT THIS TIME. ON 02 VIA N/C AT 2LPM, TOLERATING WELL WITH NO SOB NOTED. PT WITH B/L WRIST RESTRAINTS WITH CIRCULATION WNL. CURRENT TELEMETRY READING SHOWS NSR, HR 77. IV ACCESS ON RFA #22G INTACT WITH IVF OF D5 1/2 NS @75ML/HR INFUSING WELL, NO S/SX OF INFILTRATION/INFECTION NOTED AT SITE. ALVARADO IN PACE ACTIVELY DRAINING CLEAR YELLOW URINE VIA GRAVITY. BLEEDING PRECAUTIONS, ASPIRATION AND FALL PRECAUTIONS IN PLACED: HOB ELEVATED, BED LOW AND LOCKED, SIDE RAILS UP X2, BED ALARM ON AND CALL LIGHT WITHIN REACH. WILL CONTINUE TO MONITOR PT CLOSELY.
[2021-06-17 07:21] LABS: CALCIUM, SERUM 8.5 mg/dL (8.5-10.1); POTASSIUM 3.4 mmol/L (3.5-5.1)
--- NOTE | 2021-06-17 08:41 | NUR ---
SAFETY LEADER NOTES RECEIVED CRITICAL LAB RESULTS FROM LAB (BAKERY SUPERVISOR [facility]CO[facility]), PT>100, INR >10, RESULTS REPORTED TO AMRIK CHOW. AWAITING ANY FURTHER ORDERS.
--- NOTE | 2021-06-17 08:46 | NUR ---
WOUND CARE CONSULT: PT PRESENTS WITH ABRASION TO RT ELBOW, SKIN TEAR TO RT ARM, SWELLING TO RT ARM, DRY ABRASION TO LEFT KNEE WITH SWELLING TO LEFT LOWER EXTREMITY, ALL PRESENT ON ADMISSION. RECOMMENDATIONS MADE FOR WOUND CARE AND SKIN PROTECTION. DISCUSSED WITH NURSING STAFF. IN AGREEMENT WITH PLAN OF CARE. Addendum: 06/17/21 at 0849 by LEONARDO HANKINS WNDNU Amended: Links added.
[2021-06-17] MEDS: AMIODARONE HCL 200 MG TABLET PO SCH ×2 (09:13→17:15)
[2021-06-17] MEDS: ENSURE ENLIVE 237 ML LIQUID (VANILLA) PO SCH ×2 (09:16→17:39)
[2021-06-17] MEDS ORDERED: POTASSIUM CHLORIDE 20 MEQ TAB.PRT.SR PO SCH (10:00)
--- NOTE | 2021-06-17 10:16 | NUR ---
RN NOTES PT NOTED WITH INR >10 TODAY, HALEY CHOW ORDERED TO INFUSE FFP X 1 UNIT.
--- NOTE | 2021-06-17 11:19 | NUR ---
MANAGER THERAPY NOTES CONSENT FOR TRANSFUSION OBTAINED FROM SON ANEL MEREDITH AT 1119 AM
[2021-06-17] MEDS ORDERED: VANCOMYCIN 1 GM in IV D5W 250 ML IV SCH (14:00)
--- NOTE | 2021-06-17 15:18 | NUR ---
RN NOTES PT STARTED TRANSFUSION OF FFP X1 UNIT (327ML) VIA LAC IV ACCESS. V/S CHECKED AND RECORDED. WILL MONITOR FOR ANY ADVERSE /ALLERGIC REACTIONS.
--- NOTE | 2021-06-17 15:36 | NUR ---
RN NOTES NO ADVERSE /ALLERGIC REACTIONS NOTED AFTER 15MINUTES OF TRANSFUSION OF FFP VIA LAC IV ACCESS. V/S CHECKED AND RECORDED. WILL CONTINUE TO MONITOR.
[2021-06-17] MEDS: CEFTRIAXONE 1 G in IV D5W 50 ML IV SCH (17:17)
--- NOTE | 2021-06-17 17:18 | NUR ---
RN NOTES PT COMPLETED AND TOLERATED TRANSFUSION OF FFP X 1UNIT, NO ADVERSE /ALLERGIC REACTIONS NOTED. S/P V/S CHECKED, WNL AND RECORDED. WILL CONTINUE TO MONITOR.
--- NOTE | 2021-06-17 18:45 | NUR ---
REVERBERATORY FURNACE SUPERVISOR CLOSING NOTES RN CLOSING NOTES PATIENT RESTING IN BED, EYES CLOSED, AROUSABLE TO A/O X 1 (BASELINE), CONFUSED AND SOMETIMES ATTEMPTS TO REMOVE CLOTHING AND TELEMETRY LEADS WHEN AWAKE. PATIENT COOPERATING WITH TAKING ALL MEDICATION WHEN MIXED WITH APPLE SAUCE AND ABLE TO DRINK SOME VANILLA ENSURE. CURRENTLY NSR AT 74 BPM. BILATERAL SOFT WRIST RESTRAINTS ASSESSED Q2H AND CIRCULATION/MOTOR/SENSATION INTACT. SAFETY MEASURES IN PLACE: BED IN LOWEST LOCKED POSITION, SIDE RAILS UP X 2, CALL LIGHT WITHIN REACH.
--- NOTE | 2021-06-17 19:15 | NUR ---
RN opening notes Received Pt in bed resting comfortably. Pt is alert and orienetdX1. Pt speaks Lao and able to make needs known. IV site LAc# 20 is clean, intact and infusing well D5 1/2 NS @ 75 ml/hr. Tele monitor showed SR. Bilateral soft wrist restraint is intact, skin is warm to touch and circulation is check Q 2 hr. Mon cath is intact and draining yellow urine. Safety precautions is maintained. bed at low position, brakes locked,side rails upX3, and call light is within reach. will continue to [facility] for rehab medicine.
[2021-06-17] MEDS: VANCOMYCIN 1 GM in IV D5W 250 ML IV SCH (20:26)
[2021-06-17] MEDS: ATORVASTATIN 10 MG TABLET PO SCH (22:24)
[2021-06-18] VITALS: BP 149/77
[2021-06-18] MEDS: IV D5/0.45 NACL 1,000 ML IV PRN (02:50)
[2021-06-18 04:00] VITALS: BP 121/44
--- NOTE | 2021-06-18 06:40 | NUR ---
RN closing notes Pt in resting in comfortably. Pt is alert and orientedX1. No SOB. No S/S of distress noted. IV site LAc# 20 is clean, intact and infusing well D5 1/2 NS @ 75 ml/hr. Tele monitor showed SR. Bilateral soft wrist restraint is intact, skin is warm to touch and circulation is check Q 2 hr. Omn cath is intact and draining yellow urine 500ml. Routine meds were given as ordered. All needs met and attended. Safety precautions is maintained. bed at low position, brakes locked,side rails upX3, and call light is within reach. will endorse to am nurse for MUMTAZ.
[2021-06-18] MEDS: BLOOD SUGAR DIAGNOSTIC 1 EACH STRIP IN SCH ×4 (06:49→21:50)
[2021-06-18] MEDS: INSULIN REGULAR, HUMAN 100 UNIT/ML 3 ML VIAL SQ PRN ×4 (06:52→21:55)
[2021-06-18 07:57] LABS: BASOPHILS % (AUTO) 0.2 % (0.0-2.0); HEMATOCRIT 25 % (39-51); HEMOGLOBIN 8.3 g/dL (13.5-17.5); LYMPHOCYTES % (AUTO) 11.1 % (20.0-44.0); MEAN CORPUSCULAR HGB CONC 33 g/dl (31.0-36.0); MEAN CORPUSCULAR VOLUME 90 fL (80-96); MONOCYTES % (AUTO) 10.6 % (2.0-12.0); NEUTROPHILS # (AUTO) 6.6 K/uL (1.8-8.9); NEUTROPHILS % (AUTO) 73.1 % (43.0-81.0); PLATELET COUNT (AUTO) 195 K/uL (150-450); RED BLOOD CELL COUNT(AUTO) 2.77 MIL/uL (4.5-6.0)
[2021-06-18 08:00] VITALS: BP 106/48
[2021-06-18] MEDS: PANTOPRAZOLE 40 MG TABLET.DR PO SCH (08:11)
[2021-06-18] MEDS: ENSURE ENLIVE 237 ML LIQUID (VANILLA) PO SCH ×2 (08:11→16:22)
[2021-06-18] MEDS: AMIODARONE HCL 200 MG TABLET PO SCH ×2 (08:11→16:22)
[2021-06-18 08:58] LABS: CALCIUM, SERUM 8.7 mg/dL (8.5-10.1); CREATININE 0.9 mg/dL (0.6-1.3); POTASSIUM 3.8 mmol/L (3.5-5.1)
--- NOTE | 2021-06-18 09:15 | NUR ---
RN NOTES SPEECH THERAPIST AT BEDSIDE FOR ST GISSEL/SHRAVAN.
[2021-06-18] MEDS: POTASSIUM CHLORIDE 20 MEQ TAB.PRT.SR PO SCH ×2 (09:32→10:04)
--- NOTE | 2021-06-18 10:37 | NUR ---
RN NOTES PATIENT ABLE TO DRINK ENSURE W/ ASSIST; NO NAUSEA/ASPIRATION NOTED.
--- NOTE | 2021-06-18 13:56 | NUR ---
unable to do cta coronary due pt not following instructions
[2021-06-18] MEDS: VANCOMYCIN 1 GM in IV D5W 250 ML IV SCH (14:03)
--- NOTE | 2021-06-18 14:11 | NUR ---
RN NOTES SPOKE W/ PREMA FROM RADIOLOGY, INFORMED THAT PATIENT IS UNABLE TO FOLLOW COMMANDS FOR CTCA PROCEDURE AND NOT A GOOD CANDIDATE. DR. LOPEZ MADE AWARE OF SITUATION AND PATIENT'S INR LEVEL TRENDING DOWN.
[2021-06-18] MEDS: CEFTRIAXONE 1 G in IV D5W 50 ML IV SCH (15:01)
[2021-06-18 16:00] VITALS: BP 135/68
--- NOTE | 2021-06-18 19:30 | NUR ---
RN OPENING NOTE PATIENT IN BED, AWAKE. PATIENT IS CONFUSED, A/O X 1. PATIENT ON RA AT THIS TIME 97% SPO2. PATIENT HAS 2LPM PRN. BILATERAL SOFT WRIST RESTRAINTS ON D/T PATIENT PULLING ON LINES AND EQUIPMENT. PATIENT DOES NOT REPORT ANY PAIN AT THIS TIME. PATIENT HAS A RFA 20G WITH D5 1/2 NS @75 ML/R RUNNING. TELE MONITOR READS SR 80 BPM. SAFETY MEASURES IN PLACE: BED LOCKED AND IN LOWEST POSITION, CALL LIGHT WITHIN REACH, SIDE RAILS UP. WILL MONITOR PATIENT CLOSELY.
[2021-06-18 20:28] VITALS: BP 152/70
[2021-06-18] MEDS: ATORVASTATIN 10 MG TABLET PO SCH (21:52)
--- NOTE | 2021-06-18 22:00 | NUR ---
RN NOTE BS 197 MG/DL. 3 UNITS GIVEN FOR COVERAGE, GAVE ENSURE TO PREVENT HYPOGLYCEMIA. Addendum: 06/20/21 at 0228 by KARIS ROTHMAN RN WRONG DATE 06/19 2199
--- NOTE | 2021-06-18 22:00 | NUR ---
BS 164 MG/DL, 3 UNITS GIVEN FOR COVERAGE, WILL MONITOR PATIENT FOR HYPO/HYPERGLYCEMIA.
[2021-06-19 00:20] VITALS: BP 129/69
[2021-06-19 04:30] VITALS: BP 114/65
--- NOTE | 2021-06-19 05:52 | NUR ---
LFA 20 G INSERTED, PATIENT PULLED ON IVF TUBING AND PULLED OUT IV ACCESS
[2021-06-19] MEDS: IV D5/0.45 NACL 1,000 ML IV PRN (05:57)
[2021-06-19] MEDS: INSULIN REGULAR, HUMAN 100 UNIT/ML 3 ML VIAL SQ PRN ×4 (06:04→21:39)
--- NOTE | 2021-06-19 07:18 | NUR ---
RN CLOSING NOTE PATIENT IN BED, AWAKE. PATIENT IS CONFUSED, A/O X 1. PATIENT HAS 2LPM SATTING 97%. BILATERAL SOFT WRIST RESTRAINTS ON D/T PATIENT PULLING ON LINES AND EQUIPMENT. PATIENT DOES NOT REPORT ANY PAIN AT THIS TIME. PATIENT HAS A LFA 20G WITH D5 1/2 NS @75 ML/R RUNNING. TELE MONITOR READS AFIB 90 BPM, CHANGED FROM SR- CARDIO AWARE. SAFETY MEASURES IN PLACE: BED LOCKED AND IN LOWEST POSITION, CALL LIGHT WITHIN REACH, SIDE RAILS UP. ALL NEEDS MET AND ATTENDED, ALL ORDERS CARRIED OUT. WILL ENDORSE TO DAY SHIFT NURSE FOR MUMTAZ.
[2021-06-19 07:20] LABS: BASOPHILS % (AUTO) 0.2 % (0.0-2.0); EOSINOPHILS % (AUTO) 6.3 % (0.0-6.0); HEMATOCRIT 27 % (39-51); HEMOGLOBIN 8.8 g/dL (13.5-17.5); LYMPHOCYTES # (AUTO) 1.3 K/uL (0.8-4.8); LYMPHOCYTES % (AUTO) 9.5 % (20.0-44.0); MEAN CORPUSCULAR HGB CONC 33 g/dl (31.0-36.0); MEAN CORPUSCULAR VOLUME 89 fL (80-96); MONOCYTES # (AUTO) 1.2 K/uL (0.1-1.30); MONOCYTES % (AUTO) 8.8 % (2.0-12.0); NEUTROPHILS # (AUTO) 10.2 K/uL (1.8-8.9); NEUTROPHILS % (AUTO) 75.2 % (43.0-81.0); PLATELET COUNT (AUTO) 260 K/uL (150-450); RED BLOOD CELL COUNT(AUTO) 3.01 MIL/uL (4.5-6.0); WHITE BLOOD COUNT (AUTO) 13.6 K/uL (4.3-11.0)
[2021-06-19] MEDS: BLOOD SUGAR DIAGNOSTIC 1 EACH STRIP IN SCH ×4 (07:47→21:32)
[2021-06-19 07:50] LABS: ALBUMIN 2.8 g/dL (3.4-5.0); BILIRUBIN,TOTAL 1.3 mg/dL (0.2-1.0); CREATININE 0.9 mg/dL (0.6-1.3); MAGNESIUM 1.8 mg/dL (1.8-2.4); PHOSPHORUS 2.2 mg/dL (2.5-4.9); POTASSIUM 3.8 mmol/L (3.5-5.1); TOTAL PROTEIN, SERUM 6.3 g/dL (6.4-8.2)
[2021-06-19 08:00] VITALS: BP 102/47
[2021-06-19] MEDS: PANTOPRAZOLE 40 MG TABLET.DR PO SCH (08:37)
[2021-06-19] MEDS: AMIODARONE HCL 200 MG TABLET PO SCH ×2 (08:39→17:11)
[2021-06-19] MEDS: VANCOMYCIN 1 GM in IV D5W 250 ML IV SCH (08:40)
[2021-06-19] MEDS: ENSURE ENLIVE 237 ML LIQUID (VANILLA) PO SCH ×2 (08:40→17:11)
--- NOTE | 2021-06-19 09:00 | NUR ---
RN NOTES CIRCULATION CHECKED AND B/L SOFT WRIST RESTRAINTS RELEASED. PATIENT NOTED W/ EPISODE OF TRYING TO REMOVE IV LINE AND ALVARADO CATHETER.
[2021-06-19] MEDS ORDERED: K PHOS NEUTRAL 250 MG TABLET PO ONE (10:00)
--- NOTE | 2021-06-19 10:15 | NUR ---
RN NOTES PATIENT ABLE TO TAKE ENSURE W/ THICKENED CONSISTENCY. NO ASPIRATION NOTED.
--- NOTE | 2021-06-19 12:00 | NUR ---
RN NOTES PATIENT SEEN BY DR. SINGH TODAY, MADE AWARE OF PLAN OF CARE. AWARE OF INR TRENDING DOWN.
[2021-06-19] MEDS: HYDROMORPHONE INJ 2 MG/ML DISP.SYRIN IV PRN ×2 (13:05→22:39)
[2021-06-19 16:00] VITALS: BP 109/51
[2021-06-19] MEDS: CEFTRIAXONE 1 G in IV D5W 50 ML IV SCH (16:00)
[2021-06-19] MEDS: SOD FERRIC GLUC 125 MG in IV NS 0.9% 100 ML IV SCH (17:11)
--- NOTE | 2021-06-19 17:45 | NUR ---
RN NOTES SPOKE W/ ANEL, PATIENT'S SON, AND INFORMED ABOUT PLAN OF CARE AND PATIENT'S CONDITION/PROGRESS.
--- NOTE | 2021-06-19 19:16 | NUR ---
RN NOTES SAFETY MEASURES MAINTAINED. ALVARADO CATH BAG EMPTIED. NO HEMATURIA NOTED; DRAINING YELLOW-COLORED URINE. ENDORSED TO COPPERSMITH APPRENTICE RN FOR MUMTAZ.
--- NOTE | 2021-06-19 19:30 | NUR ---
RN OPENING NOTE PATIENT IN BED, AWAKE. PATIENT IS CONFUSED, A/O X 2. SOLOMON ISLANDER SPEAKING BUT UNDERSTANDS SOME SWEDISH. PATIENT ON 2LPM AT THIS TIME WITH 96% SPO2. BILATERAL SOFT WRIST RESTRAINTS ON D/T PATIENT PULLING ON LINES AND EQUIPMENT. PATIENT DOES NOT REPORT ANY PAIN AT THIS TIME. PATIENT HAS A LFA 20G WITH D5 1/2 NS @75 ML/R RUNNING. TELE MONITOR READS SR 68 BPM. SAFETY MEASURES IN PLACE: BED LOCKED AND IN LOWEST POSITION, CALL LIGHT WITHIN REACH, SIDE RAILS UP. BED ALARM ON. WILL MONITOR PATIENT CLOSELY.
[2021-06-19 20:00] VITALS: BP 116/48
[2021-06-19] MEDS: ATORVASTATIN 10 MG TABLET PO SCH (21:31)
--- NOTE | 2021-06-19 22:00 | NUR ---
RN NOTE BS 197 MG/DL. 3 UNITS GIVEN FOR COVERAGE, GAVE ENSURE TO PREVENT HYPOGLYCEMIA.
--- NOTE | 2021-06-19 22:40 | NUR ---
DILAUDID GIVEN, PATIENT SCREAMING
[2021-06-20] VITALS: BP 115/69
[2021-06-20] MEDS: VANCOMYCIN 1 GM in IV D5W 250 ML IV SCH ×2 (01:12→20:49)
[2021-06-20] MEDS: IV D5/0.45 NACL 1,000 ML IV PRN (03:36)
[2021-06-20 04:00] VITALS: BP 130/51
--- NOTE | 2021-06-20 06:30 | NUR ---
BS 182 MG/DL, 3 UNITS GIVEN FOR COVERAGE. PT HAS ONGOING D5 1/2 NS, AND PATIENT DRANK ENSURE.
[2021-06-20] MEDS: BLOOD SUGAR DIAGNOSTIC 1 EACH STRIP IN SCH ×4 (06:32→21:43)
[2021-06-20] MEDS: INSULIN REGULAR, HUMAN 100 UNIT/ML 3 ML VIAL SQ PRN ×3 (06:34→21:42)
[2021-06-20 06:47] LABS: BASOPHILS % (AUTO) 0.3 % (0.0-2.0); EOSINOPHILS % (AUTO) 10.5 % (0.0-6.0); HEMATOCRIT 24 % (39-51); LYMPHOCYTES # (AUTO) 1.4 K/uL (0.8-4.8); LYMPHOCYTES % (AUTO) 10.9 % (20.0-44.0); MEAN CORPUSCULAR HGB CONC 33 g/dl (31.0-36.0); MEAN CORPUSCULAR VOLUME 89 fL (80-96); MONOCYTES # (AUTO) 1.4 K/uL (0.1-1.30); MONOCYTES % (AUTO) 11.1 % (2.0-12.0); NEUTROPHILS # (AUTO) 8.7 K/uL (1.8-8.9); NEUTROPHILS % (AUTO) 67.2 % (43.0-81.0); PLATELET COUNT (AUTO) 267 K/uL (150-450)
--- NOTE | 2021-06-20 06:48 | NUR ---
RN CLOSING NOTE PATIENT IN BED, SLEEPING. PATIENT IS A/O X 2 TURKMEN SPEAKING BUT UNDERSTANDS SOME SAMOAN. PATIENT ON 2LPM AT THIS TIME WITH 98% SPO2. BILATERAL SOFT WRIST RESTRAINTS ON D/T PATIENT PULLING ON LINES AND EQUIPMENT. PATIENT DOES NOT REPORT ANY PAIN AT THIS TIME. PATIENT HAS A LFA 20G WITH D5 1/2 NS @75 ML/R RUNNING. TELE MONITOR READS SR 70 BPM. SAFETY MEASURES IN PLACE: BED LOCKED AND IN LOWEST POSITION, CALL LIGHT WITHIN REACH, SIDE RAILS UP. BED ALARM ON. ALL NEEDS MET AND ATTENDED, ALL ORDERS CARRIED OUT. WILL ENDORSE TO DAY SHIFT NURSE FOR MUMTAZ.
[2021-06-20 07:16] LABS: CALCIUM, SERUM 8.5 mg/dL (8.5-10.1); CREATININE 0.9 mg/dL (0.6-1.3); MAGNESIUM 1.9 mg/dL (1.8-2.4)
--- NOTE | 2021-06-20 07:35 | NUR ---
ms rn [id number] on bed, awake,oriented x1 only, bilateral soft wrist restrain on due to pulling of cord and equipment,souting at times, denies pain at this time, no sob noted, álvarez to gravity w/ yellowish urine output, will monitor patient.
[2021-06-20 08:00] VITALS: BP 159/60
--- NOTE | 2021-06-20 08:45 | NUR ---
ms rn due meds given,tolerated well.
[2021-06-20] MEDS: PANTOPRAZOLE 40 MG TABLET.DR PO SCH (08:56)
[2021-06-20] MEDS: AMIODARONE HCL 200 MG TABLET PO SCH ×2 (08:57→17:00)
[2021-06-20] MEDS: ENSURE ENLIVE 237 ML LIQUID (VANILLA) PO SCH ×2 (08:58→17:00)
[2021-06-20 12:00] VITALS: BP 158/57
--- NOTE | 2021-06-20 12:00 | NUR ---
ms rn son at bedside, explain all the possible plan of care and procedure to be done on thursday.
[2021-06-20] MEDS ORDERED: KETOROLAC TROMETHAMINE INJ 30 MG/ML VIAL IM PRN (12:30)
[2021-06-20] MEDS: SOD FERRIC GLUC 125 MG in IV NS 0.9% 100 ML IV SCH (14:00)
[2021-06-20 16:00] VITALS: BP 109/60
[2021-06-20] MEDS: CEFTRIAXONE 1 G in IV D5W 50 ML IV SCH (16:00)
--- NOTE | 2021-06-20 16:00 | NUR ---
ms rn patient refused to insert another iv since another one is not working.
--- NOTE | 2021-06-20 16:27 | NUR ---
ms rn on bed, no distress noted.
--- NOTE | 2021-06-20 18:20 | NUR ---
ms rn patient is refusing all meds and checking blood sugar, iv atb was refused, will try again later.
--- NOTE | 2021-06-20 18:47 | NUR ---
ms rn on bed, still on bed, so mad taking all leads but alert, marionge nurse aware, restrain not put at this time,
--- NOTE | 2021-06-20 19:05 | NUR ---
INSURANCE LICENSING SUPERVISOR OPENING NOTES: RECEIVED PATIENT IN BED, AWAKE, A/O X4, PER REPORTS FROM ALEXI BALLARD ACCORDING TO THE CHARGE NURSE MATTHEW, PATIENT IS A/O X4. NO S/S OF DISTRESS NOTED. NO COMPLAIN OF PAIN. CALL LIGHT WITHIN REACH. BED ALARM ON. BED IN LOWEST AND LOCKED POSITION. NO RESTRAINTS. WITH ALVARADO CATHETER INTACT DRAINING CLEAR YELLOWISH OUTPUT. IV ON THE LEFT ARM INFILTRATED, PATIENT IS WILLING TO HAVE IV REINSERTION. PLACED THE TELE MONITOR LEADS, ON SINUS 76.
[2021-06-20 20:00] VITALS: BP 103/45
--- NOTE | 2021-06-20 20:51 | NUR ---
IV REINSERTED ON THE LEFT FOREARM G22.
[2021-06-20] MEDS: ATORVASTATIN 10 MG TABLET PO SCH (21:30)
[2021-06-21] VITALS: BP 129/68
[2021-06-21] MEDS: ACETAMINOPHEN 325 MG TABLET PO PRN (02:22)
[2021-06-21 04:00] VITALS: BP 138/81
[2021-06-21] MEDS: IV D5/0.45 NACL 1,000 ML IV PRN (05:01)
[2021-06-21] MEDS: INSULIN REGULAR, HUMAN 100 UNIT/ML 3 ML VIAL SQ PRN ×3 (06:34→21:34)
[2021-06-21] MEDS: BLOOD SUGAR DIAGNOSTIC 1 EACH STRIP IN SCH ×5 (06:40→21:35)
[2021-06-21 07:05] LABS: BASOPHILS # (AUTO) 0.1 K/uL (0.0-0.2); BASOPHILS % (AUTO) 0.4 % (0.0-2.0); EOSINOPHILS % (AUTO) 6.6 % (0.0-6.0); HEMATOCRIT 23 % (39-51); HEMOGLOBIN 7.8 g/dL (13.5-17.5); LYMPHOCYTES % (AUTO) 7.2 % (20.0-44.0); MEAN CORPUSCULAR HGB CONC 33 g/dl (31.0-36.0); MEAN CORPUSCULAR VOLUME 90 fL (80-96); MONOCYTES # (AUTO) 1.3 K/uL (0.1-1.30); MONOCYTES % (AUTO) 9.8 % (2.0-12.0); NEUTROPHILS # (AUTO) 10.2 K/uL (1.8-8.9); PLATELET COUNT (AUTO) 274 K/uL (150-450); WHITE BLOOD COUNT (AUTO) 13.4 K/uL (4.3-11.0)
[2021-06-21 07:37] LABS: CALCIUM, SERUM 8.4 mg/dL (8.5-10.1); CREATININE 0.8 mg/dL (0.6-1.3); MAGNESIUM 1.8 mg/dL (1.8-2.4); PHOSPHORUS 2.5 mg/dL (2.5-4.9)
[2021-06-21 08:00] VITALS: BP 111/55
--- NOTE | 2021-06-21 08:00 | NUR ---
ms rn received on bed, awake alert,oriented x3-4, israeli speaking,not in any form of distress, respirations even and unlabored,no sob noted, s/p fall w/ left leg fx, denies pain at this time, all needs attended.
[2021-06-21] MEDS: PANTOPRAZOLE 40 MG TABLET.DR PO SCH (08:27)
[2021-06-21] MEDS: AMIODARONE HCL 200 MG TABLET PO SCH ×2 (08:28→17:14)
[2021-06-21] MEDS: ENSURE ENLIVE 237 ML LIQUID (VANILLA) PO SCH ×2 (08:29→17:15)
--- NOTE | 2021-06-21 08:50 | NUR ---
ms colmenares breakfast served,due meds given,tolerated well.
--- NOTE | 2021-06-21 11:00 | NUR ---
ms intern brand at bedside, will do ct angio of the hear w/ 3d image per dr. smith.
--- NOTE | 2021-06-21 12:50 | NUR ---
ms rn patient came back from procedure,all needs attended.
--- NOTE | 2021-06-21 12:55 | NUR ---
ms colmenares bs -190- patient refused insulin at this time.
[2021-06-21] MEDS ORDERED: IOHEXOL-350 100 ML VIAL IV ONE (13:07)
[2021-06-21] MEDS ORDERED: NITROGLYCERIN 0.4 MG/TAB BOTTLE ONE (13:07)
[2021-06-21] MEDS ORDERED: CT SWABBABLE VALVE TRANS SET 1 EA INFUS.SET MC ONE (13:07)
[2021-06-21] MEDS ORDERED: METOPROLOL TARTRATE INJ 5 MG/5 ML AMPUL ONE ×2 (13:07→13:21)
[2021-06-21] MEDS ORDERED: IV NS 0.9% 250 ML IV ONE (13:08)
[2021-06-21] MEDS: METOPROLOL TARTRATE INJ 5 MG/5 ML AMPUL IVP PRN ×4 (13:15→13:30)
[2021-06-21] MEDS ORDERED: NITROGLYCERIN 0.4 MG/TAB BOTTLE SL ONE (13:30)
[2021-06-21] MEDS: SOD FERRIC GLUC 125 MG in IV NS 0.9% 100 ML IV SCH (14:17)
[2021-06-21] MEDS: VANCOMYCIN 1 GM in IV D5W 250 ML IV SCH (14:18)
--- NOTE | 2021-06-21 15:39 | NUR ---
ms rn dr. smith called, patient is clear for surgery, texted dr. cole to contact ortho, awaiting to text back.
--- NOTE | 2021-06-21 16:08 | NUR ---
pt cleared for ortho surgery by Dr. Rogers. Dr. Goodman informed and Dr. Paul as well.
[2021-06-21] MEDS: CEFTRIAXONE 1 G in IV D5W 50 ML IV SCH (16:26)
--- NOTE | 2021-06-21 17:30 | NUR ---
ms rn patient eating dinner, for sx tommorow,will put on npo post midnight, will notifiy family.
--- NOTE | 2021-06-21 19:10 | NUR ---
LIME KILN OPERATOR OPENING NOTES: RECEIVED PATIENT IN BED, AWAKE, AGITATED. NO S/S OF DISTRESS NOTED. NO COMPLAIN OF PAIN. CALL LIGHT WITHIN REACH. BED ALARM ON. BED IN LOWEST AND LOCKED POSITION. PATIENT IS NOT IN GOOD POSITION. PULLED THE PATIENT UP IN BED AND PLACED HIM IN THE CENTER OF THE BED. PATIENT WANTS TO GET UP AND WALK TO THE BATHROOM, INSTRUCTED THE PATIENT AND RE-ORIENTED THE PATIENT, PATIENT CALMED DOWN AND FELT COMFORTABLE. WITH ALVARADO CATHTER INTACT, SECURED WITH TAPE, DRAINING CLEAR YELLOW URINE OUTPUT. HOB ELEVATED. INSTRUCTED NPO POST MN EXCEPT MEDS, PATIENT AWARE, AND CURTAIN DRIERVinod JOSÉ. NO TELE MONITOR ATTACHED TO THE PATIENT. Addendum: 06/21/21 at 2021 by ERICA HUYNH RN NPO POST MN.
[2021-06-21 20:00] VITALS: BP 110/48
--- NOTE | 2021-06-21 20:18 | NUR ---
DR OLIVARES (SURGEON) CAME AND SEEN THE PATIENT.
--- NOTE | 2021-06-21 20:40 | NUR ---
PLACED THE TELE MONITOR TO THE PATIENT, ON SR 72.
[2021-06-21] MEDS: ATORVASTATIN 10 MG TABLET PO SCH (21:21)
--- NOTE | 2021-06-21 22:06 | NUR ---
RECEIVED A CALL FROM DR GARCIA( ANESTHESIA) WANTS TO HAVE A ONE UNIT PRBC ON HOLD FOR SURGERY TOMORROW AT 0930. WANTS IT TO ORDER TONIGHT PER DR OLIVARES.
--- NOTE | 2021-06-21 22:19 | NUR ---
CALLED THE BLOOD BANK FOR FOLLOW UP AND SPOKE TO TAY AND SHE SAID THAT THERE IS NO ORDER, INFORMED CHILD'S NURSE HALEY.
--- NOTE | 2021-06-21 22:28 | NUR ---
CALLED THE BLOOD BANK RE: INFORMED THAT 2UNITS TO BE TRANSFUSED TONIGHT AND 1 UNIT ON HOLD FOR SURGERY.
--- NOTE | 2021-06-21 22:55 | NUR ---
IV INSERTED ON THE LEFT FOREARM G20. PREVIOUS IV ON THE LEFT ARM REMOVED BY THE PATIENT EARLIER AT THE BEGINNING OF THE SHIFT. RIGHT AC G18 WAS INSERTED IN THE DAYSHIFT RN.
--- NOTE | 2021-06-21 23:31 | NUR ---
CALLED THE BLOOD BANK RE: FOLLOW UP FOR THE 2 UNITS PRBC, NOT READY YET.
[2021-06-22] VITALS (16 sets, daily range): BP systolic 104–147; BP diastolic 52–72
--- NOTE | 2021-06-22 03:03 | NUR ---
PATIENT IS CONFUSED, PATIENT WANTS TO STAND UP, AND WANTS TO PUT HIS CLOTHES ON, PATIENT RE-ORIENTED. PATIENT PULLED HIS IV ON THE LEFT FOREARM WITH THE BLOOD TRANSFUSION RUNNING. BLOOD TRANSFUSION RESUMED ON THE RIGHT AC G18. CHARGE NURSE WILMER REINSERTED THE IV ON THE LEFT FOREARM. PATIENT REMOVED THE TELE MONITOR X2.
--- NOTE | 2021-06-22 06:54 | NUR ---
blood khnew=910, no insulin needed.
[2021-06-22] MEDS: PANTOPRAZOLE 40 MG TABLET.DR PO SCH (07:30)
--- NOTE | 2021-06-22 07:40 | NUR ---
ALMOND SORTER OPENING NOTES Pt IS AWAKE IN BED. A/Ox3 AT THIS TIME. Pt JUST FINISHED BLOOD TRANSFUSION IS TOLERATING WELL AT THIS TIME. Pt IS ON ROOM AIR AND NO SIGNS OF RESPIRATORY DISTRESS, NO COMPLAINTS OF PAIN. SAFETY MEASURE ARE IN PLACE: BED IS LOCKED AND IN LOWEST POSITION. SIDE RAILS UPx2. CALL LIGHT AND BED SIDE TABLE ARE WITHIN REACH. WILL CONTINUE TO MONITOR
[2021-06-22] MEDS: ENSURE ENLIVE 237 ML LIQUID (VANILLA) PO SCH ×2 (07:46→17:00)
[2021-06-22] MEDS: AMIODARONE HCL 200 MG TABLET PO SCH ×2 (08:29→17:00)
[2021-06-22] MEDS: VANCOMYCIN 1 GM in IV D5W 250 ML IV SCH (08:43)
[2021-06-22] MEDS ORDERED: HYDROMORPHONE INJ 2 MG/ML DISP.SYRIN ONE (09:15)
[2021-06-22] MEDS ORDERED: ROCURONIUM BROMIDE 50 MG/5 ML ONE ×2 (09:15→10:45)
[2021-06-22] MEDS ORDERED: FENTANYL PF 100MCG/2ML AMPUL ONE (09:15)
[2021-06-22] MEDS ORDERED: BUPIVACAINE 0.5 % PF 150 MG/30 ML VIAL ONE (09:41)
[2021-06-22 10:03] LABS: BASOPHILS # (AUTO) 0.1 K/uL (0.0-0.2); BASOPHILS % (AUTO) 0.6 % (0.0-2.0); EOSINOPHILS % (AUTO) 5.3 % (0.0-6.0); HEMATOCRIT 30 % (39-51); HEMOGLOBIN 9.9 g/dL (13.5-17.5); LYMPHOCYTES # (AUTO) 1.3 K/uL (0.8-4.8); MEAN CORPUSCULAR HGB CONC 33 g/dl (31.0-36.0); MEAN CORPUSCULAR VOLUME 90 fL (80-96); MONOCYTES # (AUTO) 1.2 K/uL (0.1-1.30); NEUTROPHILS # (AUTO) 9.6 K/uL (1.8-8.9); NEUTROPHILS % (AUTO) 75.1 % (43.0-81.0); PLATELET COUNT (AUTO) 301 K/uL (150-450); RED BLOOD CELL COUNT(AUTO) 3.33 MIL/uL (4.5-6.0); WHITE BLOOD COUNT (AUTO) 12.8 K/uL (4.3-11.0)
[2021-06-22] MEDS ORDERED: VANCOMYCIN 1 GM VIAL ONE (10:26)
[2021-06-22] MEDS ORDERED: BUPIVACAINE 0.25% 75 MG/30 ML VIAL ONE (10:26)
[2021-06-22] MEDS ORDERED: POLYMYXIN B SULFATE 500,000 UNITS ONE (11:16)
[2021-06-22] MEDS: BLOOD SUGAR DIAGNOSTIC 1 EACH STRIP IN SCH ×3 (12:00→22:02)
[2021-06-22 12:25] LABS: HEMOGLOBIN 9.3 g/dL (13.5-17.5)
[2021-06-22 12:38] LABS: CALCIUM, SERUM 8.4 mg/dL (8.5-10.1); CREATININE 0.9 mg/dL (0.6-1.3); MAGNESIUM 1.9 mg/dL (1.8-2.4); PHOSPHORUS 2.9 mg/dL (2.5-4.9); POTASSIUM 4.2 mmol/L (3.5-5.1)
--- NOTE | 2021-06-22 13:16 | NUR ---
ALEXI NOTES Pt IS BACK ON THE UNIT AFTER L ORIF SURGERY. NO COMPLAINTS OF PAIN AT THIS TIME. VS ARE 132/69. TEMP Addendum: 06/22/21 at 1319 by JOAQUIM DOLAN RN BP IS 137/69. TEMP IS98.0. RESPIRATIONS ARE 18. HR IS 64. AND O2 IS 98% ON 2L OF NC. SAFETY MEASURES ARE IN PLACE AT THIS TIME. NO SINS OF DISTRESS NOTICED. WILL CONTINUE TO MONITOR.
--- NOTE | 2021-06-22 13:31 | NUR ---
RN NOTES Pt's BLOOD SUGAR IS 212, NO COVERAGE GIVEN Pt HAS BEEN NPO AND NOT ALERT ENOUGH AT THIS TIME TO EAT GUZMÁN. WILL CONTINUE TO MONITOR
[2021-06-22] MEDS: IV D5/0.45 NACL 1,000 ML IV PRN (14:21)
[2021-06-22] MEDS: SOD FERRIC GLUC 125 MG in IV NS 0.9% 100 ML IV SCH (14:21)
[2021-06-22] MEDS: CEFTRIAXONE 1 G in IV D5W 50 ML IV SCH (15:53)
--- NOTE | 2021-06-22 18:45 | NUR ---
RN CLOSING NOTES Pt IS IN BED, RESTING. A/Ox3 AT THIS TIME. BREATHING IS EVEN AND UNLABORED ON 2L OF NC AND TOLERATING WELL. NO COMPLAINTS OF PAIN OR SIGNS OF DISTRESS AT THIS TIME. IV ACCESS IS ON THE R AC WITH D5 1/2 NS RUNNING AT 75mL/hr AND IS TOLERATING WELL. SAFETY MEASURES ARE IN PACE: BED IS LOCKED AND IN LOWEST POSITION. SIDE RAILS UPx3. BED SIDE TABLE AND CALL LIGHT ARE WITHIN REACH. WILL ENDORSE TO ONCOMING SHIFT.
--- NOTE | 2021-06-22 19:30 | NUR ---
MS RN OPENING NOTES: PT RECEIVED AWAKE IN BED. A&OX3. PT IS ON BILATERAL SOFT WRIST RESTRAINTS, SKIN, CIRCULATION WNL, PT ABLE TO MOVE FINGERS INDEPENDENTLY. PT IS ON 2L OF OXYGEN VIA NASAL CANNULA, NO COMPLAINTS OF PAIN AT THIS TIME. PT ON TELE MONITOR, SINUS RHYTHM WITH 77 PULSE. SAFETY MEASURE ARE IN PLACE. BED IS LOCKED AND IN THE LOWEST POSITION, BED ALARM ON. PT IS ABLE TO VERBALIZE NEEDS OR CONCERNS TO STAFF. PT IS PROVIDED A COMFORTABLE ENVIRONMENT. WILL CONTINUE TO MONITOR PT FOR ANY CHANGES IN CURRENT CONDITION THROUGHOUT MY SHIFT.
--- NOTE | 2021-06-22 20:53 | NUR ---
MS RN NOTES: SEQUENTIAL COMPRESSION DEVICE PUT ON PT ON BILATERAL LOWER LEGS FOR DVT PREVENTION @ 2049. WILL CONTINUE TO MONITOR PT FOR ANY CHANGES IN CONDITION THROUGHOUT MY SHIFT.
[2021-06-22] MEDS: ATORVASTATIN 10 MG TABLET PO SCH (21:41)
[2021-06-22] MEDS: INSULIN REGULAR, HUMAN 100 UNIT/ML 3 ML VIAL SQ PRN (21:43)
--- NOTE | 2021-06-22 22:01 | NUR ---
RN NOTES: ACCU CHECK PERFORMED ON PT @ 2140, BLOOD SUGAR: 272, PT GIVEN 6 UNITS OF HUMULIN R INSULIN PER SLIDING SCORE ORDERS ON LEFT DELTOID, SITES ROTATED.
[2021-06-23] VITALS (7 sets, daily range): BP systolic 106–139; BP diastolic 54–78
[2021-06-23] MEDS: VANCOMYCIN 1 GM in IV D5W 250 ML IV SCH ×2 (02:03→13:03)
[2021-06-23 06:06] LABS: BASOPHILS % (AUTO) 0.1 % (0.0-2.0); HEMATOCRIT 29 % (39-51); HEMOGLOBIN 9.6 g/dL (13.5-17.5); LYMPHOCYTES # (AUTO) 0.7 K/uL (0.8-4.8); LYMPHOCYTES % (AUTO) 6.3 % (20.0-44.0); MEAN CORPUSCULAR HGB CONC 33 g/dl (31.0-36.0); MEAN CORPUSCULAR VOLUME 90 fL (80-96); MONOCYTES % (AUTO) 8.4 % (2.0-12.0); NEUTROPHILS # (AUTO) 9.9 K/uL (1.8-8.9); NEUTROPHILS % (AUTO) 85.2 % (43.0-81.0); PLATELET COUNT (AUTO) 316 K/uL (150-450); RED BLOOD CELL COUNT(AUTO) 3.26 MIL/uL (4.5-6.0); WHITE BLOOD COUNT (AUTO) 11.6 K/uL (4.3-11.0)
[2021-06-23 06:09] LABS: HEMOGLOBIN 9.5 g/dL (13.5-17.5)
[2021-06-23] MEDS: INSULIN REGULAR, HUMAN 100 UNIT/ML 3 ML VIAL SQ PRN ×4 (06:59→21:51)
[2021-06-23] MEDS: IV D5/0.45 NACL 1,000 ML IV PRN (07:00)
[2021-06-23] MEDS: BLOOD SUGAR DIAGNOSTIC 1 EACH STRIP IN SCH ×4 (07:00→22:23)
--- NOTE | 2021-06-23 07:00 | NUR ---
MS RN CLOSING NOTES: PT IS IN BED RESTING, A&OX3, NO APPARENT RESPIRATORY DISTRESS AT THIS TIME, BREATHING IS EVEN AND UNLABORED, PT IS ON 2L NC TOLERATING WELL, NO COMPLAINTS OF PAIN. PT IS PROVIDED A SAFE AND COMFORTABLE ENVIRONMENT. BED IS IN LOWEST POSITION, LOCKED AND X2 SIDE RAILS UP. WILL ENDORSE TO ONCOMING SHIFT.
[2021-06-23 07:31] LABS: CREATININE 0.9 mg/dL (0.6-1.3); MAGNESIUM 2.1 mg/dL (1.8-2.4); PHOSPHORUS 3.2 mg/dL (2.5-4.9); POTASSIUM 4.5 mmol/L (3.5-5.1)
--- NOTE | 2021-06-23 07:44 | NUR ---
MS RN OPENING NOTES RECEIVED PATIENT AWAKE IN BED, A&OX3. IN NO ACUTE DISTRESS NOTED. ON BILATERAL SOFT WRIST RESTRAINTS, SKIN, CIRCULATION WNL, PT ABLE TO MOVE FINGERS INDEPENDENTLY. PT IS ON 2L OF OXYGEN VIA NASAL CANNULA, SATURATING WELL, NO SOB NOTED, NO COMPLAINTS OF PAIN AT THIS TIME. PT ON TELE MONITOR, SINUS RHYTHM HR AT 78 BPM. NOTED WITH DRY AND INTACT DRESSING ON THE SURGICAL SITE. NO BLEEDING NOTED. SAFETY MEASURE IN PLACE. BED IS LOCKED AND IN THE LOWEST POSITION, BED ALARM ON. PT IS ABLE TO VERBALIZE NEEDS OR CONCERNS TO STAFF, SIDE RAILS UP, CALL LIGHT WITHIN EASY REACH, WILL CONTINUE TO MONITOR ACCORDINGLY.
[2021-06-23] MEDS: ENSURE ENLIVE 237 ML LIQUID (VANILLA) PO SCH ×2 (08:15→17:05)
[2021-06-23] MEDS: AMIODARONE HCL 200 MG TABLET PO SCH ×2 (08:15→16:44)
[2021-06-23] MEDS: PANTOPRAZOLE 40 MG TABLET.DR PO SCH (08:15)
[2021-06-23] MEDS: ACETAMINOPHEN 325 MG TABLET PO PRN (13:32)
[2021-06-23] MEDS: SOD FERRIC GLUC 125 MG in IV NS 0.9% 100 ML IV SCH (15:06)
[2021-06-23] MEDS: CEFTRIAXONE 1 G in IV D5W 50 ML IV SCH (16:44)
[2021-06-23] MEDS: WARFARIN SODIUM 1 MG TABLET PO SCH (16:45)
--- NOTE | 2021-06-23 18:23 | NUR ---
RN CLOSING NOTES PATIENT AWAKE IN BED, A&OX3. IN NO ACUTE DISTRESS NOTED. PT IS ON 2L OF OXYGEN VIA NASAL CANNULA, SATURATING WELL, NO SOB NOTED, NO COMPLAINTS OF PAIN AT THIS TIME. PT ON TELE MONITOR, SINUS RHYTHM HR AT 70'S. NOTED WITH DRY AND INTACT DRESSING ON THE SURGICAL SITE. PM CARE PROVIDED, KEPT CLEAN AND DRY. SAFETY MEASURE IN PLACE. BED IS LOCKED AND IN THE LOWEST POSITION, BED ALARM ON. PT IS ABLE TO VERBALIZE NEEDS OR CONCERNS TO STAFF, SIDE RAILS UP, CALL LIGHT WITHIN EASY REACH. ALL NEEDS ATTENDED AND MET, DUE MEDS GIVEN ORDERED. WILL ENDORSE TO ONCOMING SHIFT FOR MUMTAZ.
--- NOTE | 2021-06-23 19:35 | NUR ---
SHIPPER AND RECEIVING OPENING NOTES: RECEIVED PATIENT AWAKE IN BED, BED IN LOW POSITION, CALL LIGHTS WITHIN REACH, NO COMPLAIN OF PAIN AND DISCOMFORT AT THIS TIME, PATIENT IS S/P ORIF LEFT HIP, BED REST, ON TELE MONITORING AT SR 79, ON O2 INHALATION AT 2LPM SATURATING WELL, PATIENT WITH IV LINE AT LFA#20 WITH ONGOING D5 1/2 NS@75ML PER HOUR INFUSING WELL, PATIENT KEPT CLEAN AND DRY ALL NEEDS MET, WILL CONTINUE TO MONITOR.
[2021-06-23] MEDS: ATORVASTATIN 10 MG TABLET PO SCH (21:49)
[2021-06-24] VITALS (10 sets, daily range): BP systolic 97–107; BP diastolic 49–61
[2021-06-24] MEDS: ACETAMINOPHEN 325 MG TABLET PO PRN (00:21)
[2021-06-24] MEDS: VANCOMYCIN 1 GM in IV D5W 250 ML IV SCH (01:45)
[2021-06-24] MEDS ORDERED: IV SET PRIMARY PUMP SET 1 EA INFUS.SET MC ONE ×2 (06:52→08:11)
[2021-06-24] MEDS ORDERED: IODIXANOL 150 ML IV ONE (06:52)
[2021-06-24] MEDS ORDERED: IV NS 0.9% 1,000 ML ONE (06:52)
[2021-06-24] MEDS ORDERED: NITROGLYCERIN IN 5 % DEXTROSE 250 ML IV ONE (06:53)
[2021-06-24] MEDS ORDERED: LIDOCAINE HCL/PF 1% 30 ML SDV ONE (06:53)
--- NOTE | 2021-06-24 07:10 | NUR ---
RN NOTES RECEIVED REPORT FROM OUTGOING SHIFT, PATIENT WAS PICKED-UP BY CARDIAC LAB FOR PROCEDURE @0705.
[2021-06-24 07:24] LABS: BASOPHILS % (AUTO) 0.2 % (0.0-2.0); EOSINOPHILS % (AUTO) 2.3 % (0.0-6.0); HEMATOCRIT 27 % (39-51); LYMPHOCYTES # (AUTO) 1.4 K/uL (0.8-4.8); LYMPHOCYTES % (AUTO) 9.6 % (20.0-44.0); MEAN CORPUSCULAR HGB CONC 34 g/dl (31.0-36.0); MEAN CORPUSCULAR VOLUME 89 fL (80-96); MONOCYTES # (AUTO) 1.4 K/uL (0.1-1.30); MONOCYTES % (AUTO) 9.8 % (2.0-12.0); NEUTROPHILS # (AUTO) 11.4 K/uL (1.8-8.9); NEUTROPHILS % (AUTO) 78.1 % (43.0-81.0); PLATELET COUNT (AUTO) 322 K/uL (150-450); RED BLOOD CELL COUNT(AUTO) 2.99 MIL/uL (4.5-6.0); WHITE BLOOD COUNT (AUTO) 14.6 K/uL (4.3-11.0)
[2021-06-24] MEDS: PANTOPRAZOLE 40 MG TABLET.DR PO SCH (07:30)
--- NOTE | 2021-06-24 07:39 | NUR ---
BULB FARMWORKER CLOSING NOTES: PATIENT SLEEP IN BED COMFORTABLY, BED IN LOW POSITION, CALL LIGHTS WITHIN REACH, NO COMPLAIN OF PAIN AND DISCOMFORT AT THIS TI,E. ON O2 INHALATION AT 3LPM SATURATING WELL, PATIENT WITH RFA #20SL, PATIENT IS A/OX3, ON SCHEDULE PROCEDURE, LEFT HEART ANTERIOR VENTRICLE ANGIOGRAM, VERBA CONSENT GIVEN BY SON WITH 2 NURSE SIGNATORIES AND WITNESS, PATIENT S/P ORIF L HIP BANDAGE CLEAN AND INTACT, ON TELE MONITORING SR-79, PATIENT KEPT CLEAN AND DRY ALL NEEDS MET FENCE LABORER AT 0705 TO CARDIAC EXTENSION PROFESSOR FOR PROCEDURE, ENDORSE TO INCOMING NURSE.
[2021-06-24] MEDS ORDERED: FENTANYL PF 100MCG/2ML AMPUL ONE (07:41)
[2021-06-24] MEDS: BLOOD SUGAR DIAGNOSTIC 1 EACH STRIP IN SCH ×4 (07:43→21:53)
[2021-06-24] MEDS: ENSURE ENLIVE 237 ML LIQUID (VANILLA) PO SCH ×2 (08:00→17:15)
[2021-06-24] MEDS ORDERED: NOREPINEPHRINE 8MG/250ML RTU 250 ML IV ONE (08:11)
[2021-06-24 08:37] LABS: CALCIUM, SERUM 8.4 mg/dL (8.5-10.1); CREATININE 0.9 mg/dL (0.6-1.3); MAGNESIUM 2.5 mg/dL (1.8-2.4)
[2021-06-24] MEDS: AMIODARONE HCL 200 MG TABLET PO SCH ×2 (09:00→17:00)
--- NOTE | 2021-06-24 09:00 | NUR ---
RN NOTES PATIENT BACK FROM FOLLOW UP SPECIALIST, S/P LEFT HEART CATHETERIZATION. DRESSING ON RIGHT FEMORAL AREA INTACT, NO BLEEDING NOTED, ALSO WITH TR BAND ON RIGHT WRIST, INTACT. PATIENT IN STABLE CONDITION. WILL CONTINUE TO MONITOR.
[2021-06-24] MEDS ORDERED: IV NS 0.9% 1,000 ML IV ONE (09:30)
[2021-06-24] MEDS ORDERED: K PHOS NEUTRAL 250 MG TABLET PO ONE (10:00)
--- NOTE | 2021-06-24 11:00 | NUR ---
RN NOTES TR BAND ON RIGHT WRIST REMOVED, NO BLEEDING NOTED.
[2021-06-24] MEDS: INSULIN REGULAR, HUMAN 100 UNIT/ML 3 ML VIAL SQ PRN ×3 (11:25→21:53)
[2021-06-24] MEDS: CEFTRIAXONE 1 G in IV D5W 50 ML IV SCH (16:17)
[2021-06-24] MEDS: WARFARIN SODIUM 1 MG TABLET PO SCH (17:00)
--- NOTE | 2021-06-24 19:00 | NUR ---
RN CLOSING NOTES PATIENT IN BED, AWAKE, NO SIGNS OF ACUTE DISTRESS NOTED. ON ROOM AIR, TOLERATING WELL, SPO2 @96%. IV ACCESS ON LFA #20G, INTACT AND PATENT, SL. NO C/O PAIN. DRESSING ON LEFT HIP SURGICAL SITE REINFORCED. SAFETY MEASURES MAINTAINED. WILL ENDORSE TO NEXT SHIFT.
--- NOTE | 2021-06-24 19:15 | NUR ---
LEGAL CONTRACTS SPECIALIST OPENING NOTES: RECEIVED PATIENT IN BED, AWAKE, A/O X4. NO S/S OF DISTRESS NOTED. NO COMPLAIN OF PAIN. CALL LIGHT WITHIN REACH. BED ALARM ON. BED IN LOWEST AND LOCKED POSITION. HOB ELEVATED. PATIENT ON TELE MONITOR WITH SR 65. NO BLEEDING NOTED ON THE LEFT TR SITE-WRIST, DRESSING IS CLEAN, DRY AND INTACT. WITH ALVARADO CATHETER INTACT, DRAINOING CLEAR YELLOW URINE OUTPUT.
[2021-06-24] MEDS ORDERED: VANCOMYCIN 1 GM in IV D5W 250 ML IV SCH (21:00)
[2021-06-24] MEDS: ATORVASTATIN 10 MG TABLET PO SCH (22:06)
[2021-06-25] VITALS: BP 101/52
[2021-06-25 04:00] VITALS: BP 107/54
[2021-06-25 06:30] LABS: BASOPHILS # (AUTO) 0.1 K/uL (0.0-0.2); BASOPHILS % (AUTO) 0.5 % (0.0-2.0); EOSINOPHILS % (AUTO) 4.7 % (0.0-6.0); HEMATOCRIT 28 % (39-51); HEMOGLOBIN 9.3 g/dL (13.5-17.5); LYMPHOCYTES % (AUTO) 6.7 % (20.0-44.0); MEAN CORPUSCULAR HGB CONC 33 g/dl (31.0-36.0); MEAN CORPUSCULAR VOLUME 90 fL (80-96); MONOCYTES # (AUTO) 1.2 K/uL (0.1-1.30); MONOCYTES % (AUTO) 8.4 % (2.0-12.0); NEUTROPHILS # (AUTO) 11.6 K/uL (1.8-8.9); NEUTROPHILS % (AUTO) 79.7 % (43.0-81.0); PLATELET COUNT (AUTO) 293 K/uL (150-450); WHITE BLOOD COUNT (AUTO) 14.5 K/uL (4.3-11.0)
[2021-06-25] MEDS: BLOOD SUGAR DIAGNOSTIC 1 EACH STRIP IN SCH ×3 (06:43→17:01)
[2021-06-25] MEDS: INSULIN REGULAR, HUMAN 100 UNIT/ML 3 ML VIAL SQ PRN ×3 (06:43→17:00)
--- NOTE | 2021-06-25 07:32 | NUR ---
STATISTICAL ASSISTANT OPENING NOTES RECEIVED PATIENT IN BED, AWAKE, A/O X4. NO S/S OF DISTRESS NOTED. NO COMPLAINT OF PAIN. CALL LIGHT WITHIN REACH. BED ALARM ON. BED IN LOWEST AND LOCKED POSITION. HOB ELEVATED. PATIENT ON TELE MONITOR WITH NSR 70 WITH HISTORY OF A-FIB. NO BLEEDING NOTED ON THE LEFT TR SITE-WRIST, DRESSING IS CLEAN, DRY AND INTACT. ALVARADO CATHETER INTACT, DRAINING CLEAR YELLOW URINE. WILL CONTINUE TO MONITOR.
[2021-06-25 08:00] VITALS: BP 109/62
[2021-06-25] MEDS: ENSURE ENLIVE 237 ML LIQUID (VANILLA) PO SCH ×2 (08:14→16:43)
[2021-06-25] MEDS ORDERED: AMIODARONE HCL 200 MG TABLET PO SCH (09:00)
[2021-06-25] MEDS: PANTOPRAZOLE 40 MG TABLET.DR PO SCH (09:04)
[2021-06-25 11:22] LABS: CALCIUM, SERUM 8.4 mg/dL (8.5-10.1); MAGNESIUM 2.1 mg/dL (1.8-2.4); PHOSPHORUS 2.6 mg/dL (2.5-4.9); POTASSIUM 4.4 mmol/L (3.5-5.1)
[2021-06-25] MEDS ORDERED: TIMO10DR19 EACHEYE (15:27)
[2021-06-25] MEDS ORDERED: BIMA2.5D5 EACHEYE (15:27)
[2021-06-25 16:00] VITALS: BP 112/53
--- NOTE | 2021-06-25 16:02 | NUR ---
RN NOTES PATIENT FOR DISCHARGE TO [facility] RM 315 TODAY WITH PICKUP SCHEDULED AT 5 PM. CALLED IN REPORT TO ALEXI HO WHO VERBALIZED UNDERSTANDING OF DISCHARGE INSTRUCTIONS. PATIENT SON ANEL VISITED THIS AFTERNOON AND AWARE OF DISCHARGE TO ARU.
[2021-06-25] MEDS: WARFARIN SODIUM 1 MG TABLET PO SCH (16:42)
--- NOTE | 2021-06-25 18:09 | NUR ---
RN DISCHARGED NOTES PT DISCHARGED TO [facility] IN STABLE CONDITION. A/O X3-4. ABLE TO MAKE NEEDS KNOWN. V/S TAKEN, STABLE AND RECORDED. ALL BELONGINGS ACCOUNTED FOR AND PT'S SON ANEL SIGNED BELONGINGS LIST. UN-ABLE TO TAKE PHOTOGRAPHS OF SURGICAL INCISIONS ON LEFT HIP/THIGH DUE TO DRESSING IN PLACE, CLEAN, DRY AND ONLY MD TO CHANGE DRESSING. ALVARADO CATHETER REMOVED AND PT ABLE TO URINATE. IV ACCESS ON LFA REMOVED WITH NO ACTIVE BLEEDING NOTED, DRY PRESSURE DRESSING APPLIED AT SITE. DISCHARGED INSTRUCTIONS VIA TELEPHONE GIVEN EARLIER TO ALEXI HO OF [facility]. PT IS AWARE OF DISCHARGE. PT LEFT UNIT VIA GURNEY AT 1750 ACCOMPANIED BY 3 EMT'S FROM [facility]. MD AND CHARGE NURSE AWARE OF DISCHARGE.
== END 2021-06-25 17:57 | DRG 853 ==
LOC: ER 12:02 → TELE 18:10 → MED 06-25 09:54
PROVIDERS: ADMIT Nurse Practitioner Acute Care; ATTEND Nurse Practitioner Acute Care
PROC: 30233N1 Transfusion of Nonautologous Red Blood Cells into Peripheral Vein, Percutaneous Approach (ICD-10-PCS; 2021-06-17)
PROC: 30233K1 Transfusion of Nonautologous Frozen Plasma into Peripheral Vein, Percutaneous Approach (ICD-10-PCS; 2021-06-17)
PROC: 0QS706Z Reposition Left Upper Femur with Intramedullary Internal Fixation Device, Open Approach (ICD-10-PCS; principal; 2021-06-22)
DX: A41.9 Sepsis, unspecified organism (principal); S72.112A Displaced fracture of greater trochanter of left femur, initial encounter for closed fracture; S72.122A Displaced fracture of lesser trochanter of left femur, initial encounter for closed fracture; S32.411A Displaced fracture of anterior wall of right acetabulum, initial encounter for closed fracture; J15.9 Unspecified bacterial pneumonia; N17.0 Acute kidney failure with tubular necrosis; I21.4 Non-ST elevation (NSTEMI) myocardial infarction; I50.33 Acute on chronic diastolic (congestive) heart failure; G92.8 Other toxic encephalopathy; D68.59 Other primary thrombophilia; E87.1 Hypo-osmolality and hyponatremia; I48.92 Unspecified atrial flutter; W01.0XXA Fall on same level from slipping, tripping and stumbling without subsequent striking against object, initial encounter; Y92.099 Unspecified place in other non-institutional residence as the place of occurrence of the external cause; I11.0 Hypertensive heart disease with heart failure; Z20.822 Contact with and (suspected) exposure to COVID-19; Z79.01 Long term (current) use of anticoagulants; Z79.84 Long term (current) use of oral hypoglycemic drugs; Z79.899 Other long term (current) drug therapy; I48.91 Unspecified atrial fibrillation; E66.9 Obesity, unspecified; Z68.33 Body mass index [BMI] 33.0-33.9, adult; E11.9 Type 2 diabetes mellitus without complications; E78.5 Hyperlipidemia, unspecified; I25.10 Atherosclerotic heart disease of native coronary artery without angina pectoris
CPT/HCPCS: 36415; 71045-TC; 72170-TC; 72192-TC; 73020; 73502; 73552; 73560-TC; 75574; 80048-TC; 80053-TC; 80202-TC; 81001; 82550-TC; 82728-TC; 82962-TC; 83540-TC; 83605-TC; 83735-TC; 83880; 84100-TC; 84484-TC; 85025-TC; 85027-TC; 85378-TC; 85610-TC; 85730-TC; 86850-TC; 87081-TC; 87086-TC; 92526; 92611-TC; 97110-TC; 97112-TC; 97530-TC; A4217; A6209; A6253; A6403; C1713; C9113; C9803; G0378; J0690; J0696; J1100; J1170; J1644; J1815; J1885; J2270; J2370; J2405; J2916; J3010; J3370; J3475; J3490; J7030; J7040; J7050; J7060; P9016; P9017; Q9967

== ENCOUNTER 2021-11-11 16:31 | Inpatient (IN) | payer MEDICARE, OTHER ==
[~2021-11-11] VITALS: Ht 170.2 cm; Wt 80.7 kg
[~2021-11-11 16:31] MED LIST changes: +AMIO200T5; -AMIO200T7 PO; +ATOR10TA PO; +BIMA2.5D5 EACHEYE; +FURO40TA5 PO; -RXENO SQ; -SITA1TAB2 PO; +TIMO10DR19 EACHEYE
--- NOTE | 2021-11-11 17:18 | NUR ---
PT BIB SON FROM HOME C/O CHEST DISCOMFORT,M SOB WORST WITH SIMPLE ACTIVITY SUCH WALKING. PT FAMILY CONCERN ABOUT CHF. PLACED ON MONITOR. VSS.
--- NOTE | 2021-11-11 18:07 | NUR ---
DR DAVIS AT BEDSIDE FOR EVAL
--- NOTE | 2021-11-11 18:27 | NUR ---
IV LINE STARTED BLOOD DRAWN AND SENT TO LAB.
[2021-11-11 19:04] LABS: CALCIUM, SERUM 8.9 mg/dL (8.5-10.1); CARBON DIOXIDE 29 mmol/L (21-32); CHLORIDE 105 mmol/L (98-107); GLUCOSE 165 mg/dL (74-106); POTASSIUM 4.3 mmol/L (3.5-5.1); SODIUM SERUM 139 mmol/L (136-145); UREA NITROGEN, BLOOD 14 mg/dL (7-18)
[2021-11-11 19:17] LABS: ALANINE AMINOTRANSFERASE < 6 U/L (12-78); ALBUMIN 3.1 g/dL (3.4-5.0); ALKALINE PHOSPHATASE 146 U/L (46-116); ASPARTATE AMINOTRANSFERASE 20 U/L (15-37); BILIRUBIN,DIRECT 0.2 mg/dL (0.0-0.2); BILIRUBIN,TOTAL 0.6 mg/dL (0.2-1.0); TOTAL PROTEIN, SERUM 7.2 g/dL (6.4-8.2)
--- NOTE | 2021-11-11 19:20 | NUR ---
covid test collected and sen to lab
[2021-11-11] MEDS ORDERED: FUROSEMIDE 20 MG/2 ML VIAL IV ONE (19:30)
[2021-11-11] MEDS ORDERED: FUROSEMIDE 20 MG/2 ML VIAL ONE (19:34)
[2021-11-11 19:47] LABS: BASOPHILS % (AUTO) 0.3 % (0.0-2.0); EOSINOPHILS % (AUTO) 1.2 % (0.0-6.0); HEMATOCRIT 35 % (39-51); HEMOGLOBIN 11.6 g/dL (13.5-17.5); LYMPHOCYTES # (AUTO) 0.8 K/uL (0.8-4.8); LYMPHOCYTES % (AUTO) 7.9 % (20.0-44.0); MEAN CORPUSCULAR HGB CONC 33 g/dl (31.0-36.0); MEAN CORPUSCULAR VOLUME 93 fL (80-96); MONOCYTES # (AUTO) 1.1 K/uL (0.1-1.30); MONOCYTES % (AUTO) 11.4 % (2.0-12.0); NEUTROPHILS # (AUTO) 7.8 K/uL (1.8-8.9); NEUTROPHILS % (AUTO) 79.2 % (43.0-81.0); PLATELET COUNT (AUTO) 254 K/uL (150-450); RED BLOOD CELL COUNT(AUTO) 3.76 MIL/uL (4.5-6.0); WHITE BLOOD COUNT (AUTO) 9.8 K/uL (4.3-11.0)
--- NOTE | 2021-11-11 21:38 | NUR ---
TELE 327-2
--- NOTE | 2021-11-11 21:52 | NUR ---
[facility] SWAB COLLECTED AND SENT TO LAB. PATIENT'S BELONGINGS LIST DONE.
--- NOTE | 2021-11-11 21:52 | NUR ---
REPORT GIVEN TO BRYAN ON THIRD FLOOR
--- NOTE | 2021-11-11 22:13 | NUR ---
PT TRANSPORTED TOP ROOM 327 ON CRYSTAL MACHINING COORDINATOR PER ACLS PROTOCOL IN STABLE CONDITION
--- NOTE | 2021-11-11 22:15 | NUR ---
HOME IMPROVEMENT ADVISORCONSTRUCTION ECONOMIST NOTE PT TRANSPORTED TO THE UNIT AT THIS TIME. PT FROM HOME ADMITTED TO TELE FROM ER UNDER DR LIZZETH BARNHART FOR ADMITTING DX OF CHF EXACERBATION. A/O X3 AND ABLE TO MAKE NEEDS KNOWN. KOSOVAN SPEAKING. PT ON 2 LPM VIA NC, SATURATING @ 96%. NO S/S OF RESPIRATORY DISTRESS. NOTED WITH SOB UPON EXERTION. ON EXTERNAL MAT MAKER READING SR 78 BPM. AMBULATORY WITH WALKER WITH STEADY GAIT. SKIN IS INTACT. NOTED WITH BLE 3+ PITTING EDEMA. IV ACCESS LAC 20 GAUGE SL, INTACT AND PATENT. PT ORIENTED TO UNIT, STAFF, AND ROOM. ALL BELONGINGS ACCOUNTED FOR AND BELONGINGS LIST SIGNED. SAFETY PRECAUTIONS IN PLACE. BED IN LOWEST LOCKED POSITION, HOB ELEVATED, SIDE RAILS UP X2 AND CALL LIGHT AND TABLE WITHIN REACH. ALL NEEDS MET AT THIS TIME.
[2021-11-11 22:25] VITALS: BP 156/87
[2021-11-12] VITALS: BP 147/78
[2021-11-12 04:00] VITALS: BP 141/75
[2021-11-12] MEDS ORDERED: ONDANSETRON HCL/PF 4 MG/2 ML VIAL IVP PRN (04:00)
[2021-11-12] MEDS ORDERED: ENOXAPARIN SODIUM 40 MG/0.4 ML DISP.SYRIN SQ SCH (04:00)
[2021-11-12] MEDS ORDERED: ACETAMINOPHEN 325 MG TABLET PO PRN (04:00)
[2021-11-12] MEDS ORDERED: DEXTROSE 50%-WATER 50 ML DISP.SYRIN IV PRN (04:00)
[2021-11-12] MEDS ORDERED: BUMETANIDE INJ 4 MG in IV NS 0.9% 24 ML IV ONE (04:00)
[2021-11-12] MEDS ORDERED: Z GUARD REMEDY 4 OZ OINT TP PRN (04:00)
[2021-11-12] MEDS ORDERED: BUMETANIDE INJ 0.25 MG/ML VIAL ONE (04:24)
[2021-11-12] MEDS: BLOOD SUGAR DIAGNOSTIC 1 EACH STRIP IN SCH ×5 (04:32→22:15)
[2021-11-12 05:42] LABS: CHOLESTEROL 81 mg/dL (<200); HDL CHOLESTEROL 36 mg/dL (40-60); LDL 34 mg/dL (0-99); TRIGLYCERIDES 60 mg/dL (30-150)
--- NOTE | 2021-11-12 06:50 | NUR ---
BLACKSMITH ASSISTANT CLOSING NOTE PT AWAKE AND SITTING ON THE SIDE OF THE BED. A/O X3 AND ABLE TO MAKE NEEDS KNOWN. GEORGIAN SPEAKING. PT ON 2 LPM VIA NC, SATURATING @ 97%. NO S/S OF RESPIRATORY DISTRESS. NOTED WITH SOB UPON EXERTION. ON EXTERNAL COMMUTATOR INSPECTOR READING SR 79 BPM. IV ACCESS LAC 20 GAUGE SL, INTACT AND PATENT. ALL DUE MEDS GIVEN ORDERED. SAFETY PRECAUTIONS IN PLACE. BED IN LOWEST LOCKED POSITION, HOB ELEVATED, SIDE RAILS UP X2 AND CALL LIGHT AND TABLE WITHIN REACH. ALL NEEDS MET AT THIS TIME AND WILL ENDORSE TO ONCOMING NURSE FOR MUMTAZ.
--- NOTE | 2021-11-12 07:30 | NUR ---
CAFE ASSISTANT NOTES: RECEIVED PT AWAKE, SITTING ON CHAIR. A/O X3, ABLE TO VERBALIZE NEEDS. ON 2L OF O2 VIA NC, TOLERATING WELL. SOB NOTED UPON EXERTION BUT NONE NOTED WHEN RESTING. NO S/S OF ACUTE DISTRESS NOTED. TELE MONITOR READING SR, HR= 79. IV ACCESS L AC # 20, SL, PATENT. SAFETY MESURES IN PLACE: BED LOCKED AT LOWEST POSITION, SIDE RAILS UP X2, CALL LIGHT AND TABLE WITHIN REACH, WILL CONT TO MONITOR.
[2021-11-12] MEDS ORDERED: AMIO200T5 PO (08:27)
[2021-11-12] MEDS ORDERED: TIMO10DR19 EACHEYE (08:27)
[2021-11-12] MEDS ORDERED: ATOR10TA PO (08:27)
[2021-11-12] MEDS ORDERED: SITA1TAB2 PO (08:27)
[2021-11-12] MEDS ORDERED: TAMS-12 PO (08:27)
[2021-11-12] MEDS ORDERED: BRIM5DRO5 EACHEYE (08:27)
[2021-11-12] MEDS ORDERED: APIX5TAB PO (08:27)
[2021-11-12] MEDS ORDERED: LISI10TA29 PO (08:27)
[2021-11-12] MEDS ORDERED: DOCU-141 PO (08:27)
[2021-11-12] MEDS ORDERED: PANT40TA49 PO (08:27)
[2021-11-12] MEDS ORDERED: BIMA2.5D5 EACHEYE (08:27)
[2021-11-12] MEDS: ASPIRIN EC 81 MG TABLET.DR PO SCH (09:12)
[2021-11-12] MEDS: VALSARTAN 80 MG TABLET PO SCH (09:14)
[2021-11-12] MEDS: PANTOPRAZOLE 40 MG TABLET.DR PO SCH (09:16)
[2021-11-12] MEDS ORDERED: PANTOPRAZOLE 40 MG TABLET.DR PO SCH (09:30)
[2021-11-12] MEDS ORDERED: ATORVASTATIN 10 MG TABLET PO SCH (09:30)
[2021-11-12] MEDS: AMIODARONE HCL 200 MG TABLET PO SCH (09:39)
[2021-11-12] MEDS: FUROSEMIDE 40 MG/4 ML VIAL IV SCH ×3 (09:39→17:01)
[2021-11-12] MEDS: APIXABAN 5 MG TABLET PO SCH ×2 (09:40→16:57)
[2021-11-12] MEDS: METFORMIN 500 MG TABLET PO SCH ×2 (09:40→17:02)
[2021-11-12] MEDS: POTASSIUM CHLORIDE 20 MEQ TAB.PRT.SR PO SCH ×3 (09:41→12:25)
[2021-11-12] MEDS: TAMSULOSIN 0.4 MG CAP.SR.24H PO SCH (09:41)
[2021-11-12] MEDS: DOCUSATE SODIUM 100 MG CAPSULE PO SCH ×2 (09:41→21:28)
[2021-11-12 09:51] VITALS: BP 141/75
[2021-11-12] MEDS: LATANOPROST EYE DROP 0.005% 2.5 ML BOTTLE OP SCH ×2 (10:34→21:28)
[2021-11-12] MEDS: TIMOLOL 0.25% SOL OPHTH 10 ML BOTTLE EACHEYE SCH ×2 (11:55→16:55)
[2021-11-12] MEDS: INSULIN REGULAR, HUMAN 100 UNIT/ML 3 ML VIAL SQ PRN ×3 (12:21→22:16)
--- NOTE | 2021-11-12 15:00 | NUR ---
ALUMNAE SECRETARY NOTES: PHARMACY INQUIRED ABOUT ELOQUIS FOR A-FIB PER RENE BAND TEACHER, AND RECOMMENDATION OF MD JOHN TO CHANGE TO COUMADIN INSTEAD. RN NOTIFIED BAND TEACHER FOR ADVISE, PENDING NEW ORDER, WILL ENDORSE TO NEXT SHIFT.
[2021-11-12 15:54] VITALS: BP 101/54
--- NOTE | 2021-11-12 18:41 | NUR ---
PATENT SEARCHER CLOSING NOTES: PT AWAKE, A/O X3, ABLE TO VERBALIZE NEEDS. ON 2L OF O2 VIA NC, TOLERATING WELL. SOB NOTED UPON EXERTION BUT NONE NOTED WHEN RESTING. NO S/S OF ACUTE DISTRESS NOTED. TELE MONITOR READING AFIB 92, MADE MD AWARE. IV ACCESS L AC # 20, SL, PATENT. SAFETY MEASURES IN PLACE: BED LOCKED AT LOWEST POSITION, SIDE RAILS UP X2, CALL LIGHT AND TABLE WITHIN REACH, WILL CONT TO MONITOR.
--- NOTE | 2021-11-12 19:07 | NUR ---
RN NOTES: RECEIVED ENDORSEMENT PATIENT WAS SITTING ON THE CHAIR, LOOKS COMFORTABLE NO SOB, PER ONGOING RN HE LOOKS MORE COMFORTABLE IF HE IS ON SITTING POSITION HE REMOVE HIS O2 INHALATION IN BETWEEN, EXPLAINED TO HIM HE NEEDS HIS O2 INHALATION, HE SAID 'LATER", ON BUILDING STONECUTTER A.FIB-95 WITH BRP, WALKING WITH ROLLATOR WALKER, LAC G#20 SL. ON SLIDING SCALE, NON LABORED BREATHING, NO ABDOMINAL OR STERNAL RETRACTION NOTED,PER RN/AM SHIFT HE WAS SEEN BY IN THE MORNING AND WRITTEN COUMADIN , PER ENDORSEMENT HE IS STILL ON ELIQUIZ, IT WAS RELAYED TO [facility]. -KEPT ON CLOSE WATCH.
[2021-11-12 20:00] VITALS: BP 100/56
--- NOTE | 2021-11-12 20:33 | NUR ---
RN NOTES: RN CAME TO CHECK HIM AND EXPLAINED TO HIM IF WE CAN REPOSITION HIS CHAIR IF HE PREFER TO SIT SO THAT WE CAN CONTINUE HIS O2 INHALATION, HE AGREED, O2 RESTARTED AT 2L/MIN VIA NC,NO SOB NOTED, ACTIVITY FOR STANDING AND WALKING IS TOLERATED.
[2021-11-12] MEDS: ATORVASTATIN 10 MG TABLET PO SCH (21:29)
--- NOTE | 2021-11-12 22:24 | NUR ---
RN NOTES: BLOOD SUGAR CHECK-153, INSULIN GIVEN PER SCALE, GIVEN JUICE AND OFFERED SNACKS AND GIVEN.
--- NOTE | 2021-11-12 22:39 | NUR ---
RN NOTES: HE HAS A SLIGHT WHEEZING WHEN HE WALK FROM CHAIR GOING TO HIS BED, ENCOURAGE TO LIE DOWN BACK IN HIS BED, POSITIONED IN SEMI FOWLERS, O2 INHALATION CONTINUE, SPO2-92%. -RE-CHECKED AGAIN, SPO2 REMAIN IN 92-92%, HE IS COMFORTABLE, NO SOB.HE IS TRYING TO SLEEP.
[2021-11-13] VITALS: BP 135/77
[2021-11-13 03:44] LABS: BASOPHILS % (AUTO) 0.2 % (0.0-2.0); EOSINOPHILS % (AUTO) 1.9 % (0.0-6.0); HEMATOCRIT 35 % (39-51); HEMOGLOBIN 11.4 g/dL (13.5-17.5); LYMPHOCYTES % (AUTO) 11.6 % (20.0-44.0); MEAN CORPUSCULAR HGB CONC 33 g/dl (31.0-36.0); MEAN CORPUSCULAR VOLUME 92 fL (80-96); MONOCYTES # (AUTO) 1.1 K/uL (0.1-1.30); MONOCYTES % (AUTO) 12.4 % (2.0-12.0); NEUTROPHILS # (AUTO) 6.5 K/uL (1.8-8.9); NEUTROPHILS % (AUTO) 73.9 % (43.0-81.0); PLATELET COUNT (AUTO) 288 K/uL (150-450); RED BLOOD CELL COUNT(AUTO) 3.77 MIL/uL (4.5-6.0); WHITE BLOOD COUNT (AUTO) 8.8 K/uL (4.3-11.0)
[2021-11-13 04:16] LABS: ALBUMIN 2.8 g/dL (3.4-5.0); BILIRUBIN,TOTAL 0.7 mg/dL (0.2-1.0); CALCIUM, SERUM 8.7 mg/dL (8.5-10.1); CREATININE 1.3 mg/dL (0.6-1.3); MAGNESIUM 1.8 mg/dL (1.8-2.4); PHOSPHORUS 3.6 mg/dL (2.5-4.9); TOTAL PROTEIN, SERUM 6.3 g/dL (6.4-8.2)
[2021-11-13 04:30] LABS: POTASSIUM 4.2 mmol/L (3.5-5.1)
[2021-11-13] MEDS: BLOOD SUGAR DIAGNOSTIC 1 EACH STRIP IN SCH ×4 (06:49→21:20)
--- NOTE | 2021-11-13 07:10 | NUR ---
RN NOTES: -TELE MONITOR CONTINUE,ON SINUS RHYTHM-85, NEEDS ATTENDED, NOTED WITH SLIGHT SOB IF HE KEEPS ON MOVING AND REMOVING HIS O2 INHALATION, AT REST HE IS COMFORTABLE, NO RESPIRATORY CHANGES, HE WAS ABLE TO GO BACK TO SLEEP, KEPT RESTED, BLOOD SUGAR-116, FOR LABS THIS MORNING, TO F/U ORDER FOR ANTICOAGULANT, O2 CONTINUE, ENDORSED FOR CONTINUITY OF CARE.
[2021-11-13 08:00] VITALS: BP 137/70
[2021-11-13] MEDS: TIMOLOL 0.25% SOL OPHTH 10 ML BOTTLE EACHEYE SCH ×2 (09:07→17:43)
[2021-11-13] MEDS: ASPIRIN EC 81 MG TABLET.DR PO SCH (09:08)
[2021-11-13] MEDS: METFORMIN 500 MG TABLET PO SCH ×2 (09:08→17:44)
[2021-11-13] MEDS: AMIODARONE HCL 200 MG TABLET PO SCH (09:08)
[2021-11-13] MEDS: LINAGLIPTIN 5 MG TABLET PO SCH (09:09)
[2021-11-13] MEDS: TAMSULOSIN 0.4 MG CAP.SR.24H PO SCH (09:09)
[2021-11-13] MEDS: VALSARTAN 80 MG TABLET PO SCH (09:09)
[2021-11-13] MEDS: APIXABAN 5 MG TABLET PO SCH ×2 (09:11→17:45)
[2021-11-13] MEDS: LEVOTHYROXINE SODIUM 25 MCG TABLET PO SCH (09:16)
[2021-11-13] MEDS: PANTOPRAZOLE 40 MG TABLET.DR PO SCH (09:16)
[2021-11-13] MEDS: FUROSEMIDE 100 MG/10 ML VIAL IV SCH ×3 (09:17→17:43)
[2021-11-13] MEDS: BRIMONIDINE TARTRATE OPHT SOLN 5 ML BOTTLE EACHEYE SCH ×2 (09:37→17:43)
--- NOTE | 2021-11-13 10:09 | NUR ---
pt. continually removing oxygen.although sitter is attempting to reinforce.also removing o2 when ambulating to the bathroom.
[2021-11-13] MEDS: INSULIN REGULAR, HUMAN 100 UNIT/ML 3 ML VIAL SQ PRN ×3 (13:43→21:19)
[2021-11-13 14:50] VITALS: BP 111/66
[2021-11-13 15:18] LABS: BILIRUBIN,URINE NEGATIVE (NEGATIVE); COLOR,URINE YELLOW (YELLOW); LEUKOCYTE ESTERASE ,URINE NEGATIVE (NEGATIVE); NITRITE, URINE NEGATIVE (NEGATIVE); PROTEIN,URINE NEGATIVE (NEGATIVE); UGLUCOSE NEGATIVE (NEGATIVE); UROBILINOGEN,URINE 0.2 EU/dL (0.2)
--- NOTE | 2021-11-13 16:42 | NUR ---
UP AND DOWN TO BATHROOM.
[2021-11-13 16:53] VITALS: BP 116/74
--- NOTE | 2021-11-13 19:10 | NUR ---
TEXTED DR. LOPEZ REGARDING LASIX IV GIVEN WITH NO POTASSIUM GIVEN.RECEIVED NO ORDERS.MEDICAL LAB DIRECTOR AWARE.
[2021-11-13 20:40] VITALS: BP 124/66
--- NOTE | 2021-11-13 21:20 | NUR ---
ACCU CHECK FSBG 81mg/dl. Hold insulin dose per level ordered.
[2021-11-13] MEDS: ATORVASTATIN 10 MG TABLET PO SCH (21:40)
[2021-11-13] MEDS: DOCUSATE SODIUM 100 MG CAPSULE PO SCH (21:41)
[2021-11-13] MEDS: LATANOPROST EYE DROP 0.005% 2.5 ML BOTTLE OP SCH (21:42)
[2021-11-13 23:57] VITALS: BP 121/52
--- NOTE | 2021-11-13 23:59 | NUR ---
RHYTHM/TELE MONITOR Afib/ Aflutter in the Tele monitor, HR 100-107. Patient denies chest pain. Stat EKG showed Aflutter. On Amiodarone. Notified AMRIK Wong with no new orders at this time. Will cont to monitor.
--- NOTE | 2021-11-14 06:25 | NUR ---
END OF SHIFT REPORT Patient is Alert Oriented x3. Anxious but no agitated behavior, mostly awake at night and likes to sit up in the chair and fell asleep. Still Afib changes to Aflutter then back to Afib in the Tele monitor, HR 107-125. Daily weight. Patient denies chest pain, no N/V. Blood glucose with insulin SS parameters. Walk frequently inside his room. On room air, tolerated well. Fall precaution maintained.
[2021-11-14] MEDS: INSULIN REGULAR, HUMAN 100 UNIT/ML 3 ML VIAL SQ PRN ×2 (06:33→12:03)
[2021-11-14] MEDS: BLOOD SUGAR DIAGNOSTIC 1 EACH STRIP IN SCH ×2 (06:35→11:39)
--- NOTE | 2021-11-14 06:35 | NUR ---
ACCU CHECK FSBG 207mg/dl. Given 4units insulin regular per SS parameters, co-signed by ALEXI Mary.
[2021-11-14 06:38] LABS: BASOPHILS % (AUTO) 0.4 % (0.0-2.0); EOSINOPHILS % (AUTO) 2.3 % (0.0-6.0); HEMATOCRIT 36 % (39-51); HEMOGLOBIN 11.8 g/dL (13.5-17.5); LYMPHOCYTES # (AUTO) 1.1 K/uL (0.8-4.8); LYMPHOCYTES % (AUTO) 10.1 % (20.0-44.0); MEAN CORPUSCULAR HGB CONC 33 g/dl (31.0-36.0); MEAN CORPUSCULAR VOLUME 91 fL (80-96); MONOCYTES # (AUTO) 1.2 K/uL (0.1-1.30); MONOCYTES % (AUTO) 10.8 % (2.0-12.0); NEUTROPHILS # (AUTO) 8.5 K/uL (1.8-8.9); NEUTROPHILS % (AUTO) 76.4 % (43.0-81.0); PLATELET COUNT (AUTO) 326 K/uL (150-450); RED BLOOD CELL COUNT(AUTO) 3.95 MIL/uL (4.5-6.0); WHITE BLOOD COUNT (AUTO) 11.1 K/uL (4.3-11.0)
--- NOTE | 2021-11-14 06:38 | NUR ---
DAILY WEIGHT Weight 178 lbs by bed.
[2021-11-14 07:06] LABS: ALANINE AMINOTRANSFERASE 24 U/L (12-78); ALBUMIN 2.9 g/dL (3.4-5.0); ALKALINE PHOSPHATASE 138 U/L (46-116); ASPARTATE AMINOTRANSFERASE 21 U/L (15-37); BILIRUBIN,TOTAL 0.5 mg/dL (0.2-1.0); CARBON DIOXIDE 26 mmol/L (21-32); CHLORIDE 99 mmol/L (98-107); CREATININE 1.5 mg/dL (0.6-1.3); GLUCOSE 198 mg/dL (74-106); MAGNESIUM 1.6 mg/dL (1.8-2.4); PHOSPHORUS 3.6 mg/dL (2.5-4.9); POTASSIUM 3.7 mmol/L (3.5-5.1); SODIUM SERUM 137 mmol/L (136-145); TOTAL PROTEIN, SERUM 6.5 g/dL (6.4-8.2); UREA NITROGEN, BLOOD 29 mg/dL (7-18)
--- NOTE | 2021-11-14 07:10 | NUR ---
LEAN MANUFACTURING SPECIALIST OPENING NOTE: RECEIVED PT. SITTING ON CHAIR, AWAKE, A/O X3. ABLE TO VERBALIZE NEEDS. ON ROOM AIR, WITH NO S/S OF RESPIRATORY DISTRESS. BREATHING EVEN AND UNLABORED. NO COMPLAINTS OF PAIN/DISCOMFORT AT THIS TIME. ON TELE MONITOR THAT READS SINUS RHYTHM WITH HR OF 79 BPM AT THIS TIME. IV ACCESS ON LEFT AC #20 G, SALINE LCOKED, PATENT AND FLUSHING WELL WITH NO S/S OF INFECTION OR INFILTRATION. SAFETY MEASURES AND FALL PRECAUTIONS IN PLACE: BED LOCKED AND IN LOWEST POSITION, SIDE RAILS UP X2, HOB ELEVATED, CALL LIGHT AND TABLE WITHIN EASY REACH, BED ALARM ON, NON-SLIP SOCKS ON. WILL CONTINUE TO MONITOR.
[2021-11-14] MEDS: LEVOTHYROXINE SODIUM 25 MCG TABLET PO SCH (07:33)
[2021-11-14] MEDS: PANTOPRAZOLE 40 MG TABLET.DR PO SCH (07:34)
[2021-11-14 08:00] VITALS: BP 91/49
[2021-11-14] MEDS ORDERED: FUROSEMIDE 40 MG TABLET PO SCH (09:00)
[2021-11-14] MEDS: VALSARTAN 80 MG TABLET PO SCH (09:00)
[2021-11-14] MEDS: BRIMONIDINE TARTRATE OPHT SOLN 5 ML BOTTLE EACHEYE SCH (09:00)
[2021-11-14] MEDS ORDERED: POTASSIUM CHLORIDE 20 MEQ TAB.PRT.SR PO SCH ×2 (09:00)
[2021-11-14] MEDS: TIMOLOL 0.25% SOL OPHTH 10 ML BOTTLE EACHEYE SCH (09:01)
[2021-11-14] MEDS: ASPIRIN EC 81 MG TABLET.DR PO SCH (09:02)
[2021-11-14] MEDS: APIXABAN 5 MG TABLET PO SCH (09:02)
[2021-11-14] MEDS: LINAGLIPTIN 5 MG TABLET PO SCH (09:03)
[2021-11-14] MEDS: METFORMIN 500 MG TABLET PO SCH (09:03)
[2021-11-14] MEDS: AMIODARONE HCL 200 MG TABLET PO SCH (09:05)
[2021-11-14] MEDS: Magnesium 1GM/D5W 100ML PREMIX 100 ML IV SCH ×2 (09:06→10:33)
[2021-11-14] MEDS: TAMSULOSIN 0.4 MG CAP.SR.24H PO SCH (09:06)
[2021-11-14 12:00] VITALS: BP 101/60
[2021-11-14] MEDS ORDERED: METF-440 PO (13:27)
[2021-11-14] MEDS ORDERED: LEVO25TA7 PO (13:27)
[2021-11-14] MEDS ORDERED: VALS80TA31 PO (13:27)
[2021-11-14] MEDS ORDERED: FURO40TA5 PO (13:27)
[2021-11-14] MEDS ORDERED: POTA20TA83 PO (13:27)
--- NOTE | 2021-11-14 15:53 | NUR ---
VENEER SAWYER NOTE: PT. DC'ED TO HOME VIA PRIVATE CAR AND PICKED UP BY SON ANEL. PT. AWAKE, A/O X3. ABLE TO VERBALIZE NEEDS. ON ROOM AIR, WITH NO S/S OF RESPIRATORY DISTRESS. BREATHING EVEN AND UNLABORED. NO COMPLAINTS OF PAIN/DISCOMFORT. IV CATH REMOVED WITH NO COMPLICATIONS. PRESSURE APPLIED TO SITE. NO S/S OF BLEEDING ON IV SITE. PT.'S ARM BAND REMOVED. PT.'S SON ANEL SIGNED WRITTEN DC INSTRUCTIONS AND PT. BELONGING LIST. EDUCATED PT. AND FAMILY MEMBER ON CONTINUED AND NEW HOME MEDICATIONS. ADVISED TO F/U WITH PCP, KISS MACHINE OPERATOR & WIRE SPOOLER AFTER DC ORDERED BY MD. PT. AND FAMILY MEMBER VERBALIZED UNDERSTANDING. PT. LEFT UNIT AT 1550 WITH SON ANEL AND OLLIE BUCKLEY.
[2021-11-15 07:42] LABS: BILIRUBIN,URINE NEGATIVE (NEGATIVE); COLOR,URINE YELLOW (YELLOW); LEUKOCYTE ESTERASE ,URINE NEGATIVE (NEGATIVE); NITRITE, URINE NEGATIVE (NEGATIVE); PROTEIN,URINE NEGATIVE (NEGATIVE); UGLUCOSE NEGATIVE (NEGATIVE); UROBILINOGEN,URINE 0.2 EU/dL (0.2)
== END 2021-11-14 15:49 | disposition home health service (06) | DRG 291 ==
LOC: ER 17:03 → TELE 21:39 → MED 11-14 08:49
PROVIDERS: ADMIT Nurse Practitioner Acute Care; ATTEND Nurse Practitioner Acute Care
DX: I11.0 Hypertensive heart disease with heart failure (principal); I50.33 Acute on chronic diastolic (congestive) heart failure; N17.9 Acute kidney failure, unspecified; J90 Pleural effusion, not elsewhere classified; I48.91 Unspecified atrial fibrillation; Z20.822 Contact with and (suspected) exposure to COVID-19; E11.9 Type 2 diabetes mellitus without complications; E78.5 Hyperlipidemia, unspecified; E03.9 Hypothyroidism, unspecified; N40.0 Benign prostatic hyperplasia without lower urinary tract symptoms; I25.2 Old myocardial infarction; D64.9 Anemia, unspecified; Z79.84 Long term (current) use of oral hypoglycemic drugs; Z79.01 Long term (current) use of anticoagulants; Z79.899 Other long term (current) drug therapy; I27.20 Pulmonary hypertension, unspecified; I05.0 Rheumatic mitral stenosis; E88.09 Other disorders of plasma-protein metabolism, not elsewhere classified; R09.02 Hypoxemia; Z96.642 Presence of left artificial hip joint
CPT/HCPCS: 36415; 71045-TC; 74018; 76770-TC; 80048-TC; 80053-TC; 80061-TC; 80076-TC; 82962-TC; 83735-TC; 83880; 84100-TC; 84300-TC; 84439-TC; 84443-TC; 84484-TC; 85025-TC; 87081-TC; 93307-TC; C9803; G0378; J1650; J1815; J1940; J3475; J3490; J7030; J7050

== ENCOUNTER 2022-01-15 16:31 | Inpatient (IN) | payer MEDICARE, OTHER ==
[~2022-01-15] VITALS: Ht 175.3 cm; Wt 72.3 kg
[~2022-01-15 16:31] MED LIST changes: -AMIO200T5; +AMIO200T5 PO; +APIX5TAB PO; +BRIM5DRO5 EACHEYE; +DOCU-141 PO; +LEVO25TA7 PO; +METF-440 PO; -OMEP20CA15 PO; +PANT40TA49 PO; +POTA20TA83 PO; +SITA1TAB2 PO; +TAMS-12 PO; +VALS80TA31 PO; -WARF5TAB8 PO
--- NOTE | 2022-01-15 17:00 | NUR ---
BILATERAL LEG WOUND/CELLULITIS X 3 WEEKS, FAILED OUT PATIENT TREATMENT. BROUGHT IN VIA WALKER, PLACED ON BED, AAOX4, BREATHING EVEN AND UNLABORED.
--- NOTE | 2022-01-15 17:26 | NUR ---
BLOOD DRAWN AND SENT TO LAB
[2022-01-15 17:58] LABS: BASOPHILS % (AUTO) 0.4 % (0.0-2.0); EOSINOPHILS % (AUTO) 3.4 % (0.0-6.0); HEMATOCRIT 36 % (39-51); HEMOGLOBIN 11.8 g/dL (13.5-17.5); LYMPHOCYTES # (AUTO) 1.7 K/uL (0.8-4.8); MEAN CORPUSCULAR HGB CONC 33 g/dl (31.0-36.0); MEAN CORPUSCULAR VOLUME 92 fL (80-96); MONOCYTES # (AUTO) 0.9 K/uL (0.1-1.30); MONOCYTES % (AUTO) 9.3 % (2.0-12.0); NEUTROPHILS # (AUTO) 6.3 K/uL (1.8-8.9); NEUTROPHILS % (AUTO) 68.9 % (43.0-81.0); PLATELET COUNT (AUTO) 181 K/uL (150-450); RED BLOOD CELL COUNT(AUTO) 3.95 MIL/uL (4.5-6.0); WHITE BLOOD COUNT (AUTO) 9.2 K/uL (4.3-11.0)
--- NOTE | 2022-01-15 18:07 | NUR ---
SWAB FOR COVID19 SENT TO LAB
[2022-01-15 18:13] LABS: CALCIUM, SERUM 9.5 mg/dL (8.5-10.1); CARBON DIOXIDE 21 mmol/L (21-32); CHLORIDE 107 mmol/L (98-107); CREATININE 1.6 mg/dL (0.6-1.3); GLUCOSE 126 mg/dL (74-106); POTASSIUM 5.3 mmol/L (3.5-5.1); SODIUM SERUM 137 mmol/L (136-145); UREA NITROGEN, BLOOD 40 mg/dL (7-18)
[2022-01-15 18:27] LABS: ALANINE AMINOTRANSFERASE 36 U/L (12-78); ALBUMIN 3.7 g/dL (3.4-5.0); ALKALINE PHOSPHATASE 125 U/L (46-116); ASPARTATE AMINOTRANSFERASE 20 U/L (15-37); BILIRUBIN,DIRECT 0.1 mg/dL (0.0-0.2); BILIRUBIN,TOTAL 0.4 mg/dL (0.2-1.0); TOTAL PROTEIN, SERUM 7.5 g/dL (6.4-8.2)
[2022-01-15] MEDS ORDERED: VANCOMYCIN 1 GM in IV D5W 250 ML IV ONE (19:00)
[2022-01-15] MEDS ORDERED: CEFEPIME 1 GM in IV D5W 50 ML IV ONE (19:00)
[2022-01-16] MEDS ORDERED: DEXTROSE 50%-WATER 50 ML DISP.SYRIN IV PRN (01:00)
[2022-01-16] MEDS ORDERED: HYDROCODONE/APAP 5/325MG TABLET PO PRN (01:00)
[2022-01-16] MEDS ORDERED: ACETAMINOPHEN 325 MG TABLET PO PRN (01:00)
[2022-01-16] MEDS ORDERED: Z GUARD REMEDY 4 OZ OINT TP PRN (01:00)
[2022-01-16] MEDS ORDERED: ONDANSETRON HCL/PF 4 MG/2 ML VIAL IVP PRN (01:00)
--- NOTE | 2022-01-16 01:44 | NUR ---
PT SLEEPING COMOFRTABLY BREATHING UNLABORED. CALL LIGHT WITHIN REACH. V/S WNL.
[2022-01-16] MEDS: BLOOD SUGAR DIAGNOSTIC 1 EACH STRIP IN SCH ×4 (07:30→21:57)
[2022-01-16] MEDS ORDERED: LEVOTHYROXINE SODIUM 25 MCG TABLET ONE (08:44)
[2022-01-16] MEDS ORDERED: PANTOPRAZOLE 40 MG TABLET.DR PO ONE (08:44)
[2022-01-16] MEDS: PANTOPRAZOLE 40 MG TABLET.DR PO SCH (08:55)
[2022-01-16] MEDS: LEVOTHYROXINE SODIUM 25 MCG TABLET PO SCH (08:55)
[2022-01-16] MEDS ORDERED: APIXABAN 5 MG TABLET ONE (09:42)
[2022-01-16] MEDS ORDERED: ATORVASTATIN 10 MG TABLET ONE (09:42)
[2022-01-16] MEDS ORDERED: AMIODARONE HCL 200 MG TABLET ONE (09:42)
[2022-01-16] MEDS ORDERED: VALSARTAN 80 MG TABLET ONE (09:43)
[2022-01-16] MEDS ORDERED: TAMSULOSIN 0.4 MG CAP.SR.24H ONE (09:43)
--- NOTE | 2022-01-16 09:53 | NUR ---
WOUND CARE CONSULT: PT PRESENTS WITH BILATERAL LOWER EXTREMITY WOUNDS WITH DRY INTACT DRESSINGS, PRESENT ON ADMISSION. RECOMMEND DPM CONSULT. DR GAMA CALLED. PT IS AMBULATORY AND CONTINENT AT THIS TIME. MD IN AGREEMENT WITH PLAN OF CARE.
[2022-01-16] MEDS: AMIODARONE HCL 200 MG TABLET PO SCH (09:57)
[2022-01-16] MEDS: TIMOLOL 0.25% SOL OPHTH 10 ML BOTTLE EACHEYE SCH ×2 (09:57→17:00)
[2022-01-16] MEDS: VALSARTAN 80 MG TABLET PO SCH (09:57)
[2022-01-16] MEDS: BRIMONIDINE TARTRATE OPHT SOLN 5 ML BOTTLE EACHEYE SCH ×2 (09:58→17:39)
[2022-01-16] MEDS: ATORVASTATIN 10 MG TABLET PO SCH (09:58)
[2022-01-16] MEDS: TAMSULOSIN 0.4 MG CAP.SR.24H PO SCH (09:58)
[2022-01-16] MEDS: APIXABAN 5 MG TABLET PO SCH ×2 (09:59→17:17)
--- NOTE | 2022-01-16 13:41 | NUR ---
BED 308-7
--- NOTE | 2022-01-16 14:21 | NUR ---
REPORT GIVEN TO MARGOT TRUONG. PT AWAITING TRANSFER TO FLOOR.
--- NOTE | 2022-01-16 14:45 | NUR ---
LIME SPREADER NOTES RECEIVED PATIENT FROM ER AT 1445 [facility]IA [employer]. PATIENT IS ALERT AND ORIENTED TIMES 4. NO PAIN NOTED. NO SOB NOTED. NO DISTRESS NOTED. ON TELE MONITOR READING SR. ALL THE BELONGINGS ASCCOUNTED AND SIGNED FOR BY OLLIE BARFIELD. IV ACCESS ON THE LAC G# 20 INTACT AND PATENT. ABLE TO AMBULATE WITH WALKER. LEFT LOWER EXTREMITY VENOUS ULCER AND RIGHT LOWER EXTREMITY VENOUS ULCER NOTED . PHOTO TAKE IN THE CHART. WOUND AND DIETARY CONSULT ORDERED. ALL SAFETY MEASURES IN PLACE. BED LOCKED IN THE LOWER POSITION, CALL LIGHT AND TABLE IN EASY REACH. WILL CONTINUE TO MONITOR.
[2022-01-16 16:00] VITALS: BP 102/55
[2022-01-16] MEDS ORDERED: CEFTRIAXONE 1 G in IV D5W 50 ML IV SCH (17:30)
[2022-01-16] MEDS ORDERED: VANCOMYCIN 1 GM in IV D5W 250ml IV SCH (18:00)
[2022-01-16] MEDS: INSULIN REGULAR, HUMAN 100 UNIT/ML 3 ML VIAL SQ PRN (18:05)
--- NOTE | 2022-01-16 18:30 | NUR ---
RN NOTES MEDICATION OF EYE DROP NOT ADMINISTERED. . CALLED PHARMACY, THEY STATED NEED TO CHANGE THE MEDICATION.
--- NOTE | 2022-01-16 18:50 | NUR ---
TIRE ASSEMBLER CLOSING NOTES PATIENT IS ALERT AND ORIENTED TIMES 4. NO PAIN NOTED. NO SOB NOTED. NO DISTRESS NOTED. ON TELE MONITOR READING SR. VILLA IV ACCESS ON THE LAC G# 20 INTACT AND PATENT. ABLE TO AMBULATE WITH WALKER. LEFT LOWER EXTREMITY VENOUS ULCER AND RIGHT LOWER EXTREMITY VENOUS ULCER NOTED . ALL DUE MEDS GIVEN ORDERED. ALL SAFETY MEASURES IN PLACE. BED LOCKED IN THE LOWER POSITION, CALL LIGHT AND TABLE IN EASY REACH. WILL ENDORSE FOR MUMTAZ.
[2022-01-16 20:15] VITALS: BP 105/54
--- NOTE | 2022-01-16 20:15 | NUR ---
POWERHOUSE ELECTRICIAN OPENING NOTES; RECEIVED PATIENT IN BED AAOX4,ANGELICA WELL ON RM AIR.NO SIGN SOB/DISTRESS NOTED.NO COMPLAINE OF PAIN/DISCOMFORT AT THIS TIME.IV ACCESS ON THE LAC G# 20 INTACT AND PATENT.LEFT LOWER EXTREMITY VENOUS ULCER AND RIGHT LOWER EXTREMITY VENOUS ULCER NOTED . ALL SAFETY MEASURES IN PLACE. BED LOCKED IN THE LOWER POSITION, CALL LIGHT AND TABLE IN EASY REACH. WILL CONTINUE TO MONITOR.
[2022-01-16] MEDS ORDERED: DOCUSATE SODIUM 100 MG CAPSULE PO SCH (22:00)
[2022-01-16] MEDS ORDERED: LATANOPROST EYE DROP 0.005% 2.5 ML BOTTLE OP SCH (22:00)
[2022-01-16] MEDS ORDERED: BIMATOPROST 2.5 ML DROPS OP SCH (22:00)
[2022-01-17 06:13] LABS: BASOPHILS % (AUTO) 0.5 % (0.0-2.0); EOSINOPHILS % (AUTO) 5.2 % (0.0-6.0); HEMATOCRIT 34 % (39-51); HEMOGLOBIN 11.2 g/dL (13.5-17.5); LYMPHOCYTES % (AUTO) 13.6 % (20.0-44.0); MEAN CORPUSCULAR HGB CONC 33 g/dl (31.0-36.0); MEAN CORPUSCULAR VOLUME 91 fL (80-96); MONOCYTES # (AUTO) 0.9 K/uL (0.1-1.30); MONOCYTES % (AUTO) 11.4 % (2.0-12.0); NEUTROPHILS # (AUTO) 5.2 K/uL (1.8-8.9); NEUTROPHILS % (AUTO) 69.3 % (43.0-81.0); PLATELET COUNT (AUTO) 172 K/uL (150-450); RED BLOOD CELL COUNT(AUTO) 3.71 MIL/uL (4.5-6.0); WHITE BLOOD COUNT (AUTO) 7.5 K/uL (4.3-11.0)
[2022-01-17 06:37] LABS: CALCIUM, SERUM 8.9 mg/dL (8.5-10.1); CARBON DIOXIDE 19 mmol/L (21-32); CHLORIDE 107 mmol/L (98-107); CREATININE 1.6 mg/dL (0.6-1.3); GLUCOSE 116 mg/dL (74-106); MAGNESIUM 1.9 mg/dL (1.8-2.4); PHOSPHORUS 3.3 mg/dL (2.5-4.9); POTASSIUM 4.5 mmol/L (3.5-5.1); SODIUM SERUM 136 mmol/L (136-145); UREA NITROGEN, BLOOD 39 mg/dL (7-18)
[2022-01-17] MEDS: BLOOD SUGAR DIAGNOSTIC 1 EACH STRIP IN SCH ×2 (06:38→12:01)
--- NOTE | 2022-01-17 06:42 | NUR ---
RN CLOSING NOTES; PATIENT IN BED AAOX4,ANGELICA WELL ON RM AIR.NO SIGN SOB/DISTRESS NOTED.ABLE TO MAKE NEEDS KNOWN,NO COMPLAINE OF PAIN/DISCOMFORT DURING SHIFT.DUE MEDS GIVEN ORDER,ALL NEEDS ATTENDED,IV ACCESS ON THE LAC G# 20 INTACT AND PATENT. ALL SAFETY MEASURES IN PLACE. BED LOCKED IN THE LOWER POSITION, CALL LIGHT AND TABLE IN EASY REACH. WILL ENDORSED TO NEXT SHIFT.
--- NOTE | 2022-01-17 07:03 | NUR ---
MS RN OPENING NOTES RECEIVED PATIENT AWAKE IN ROOM, A/Ox4 ABLE TO MAKE NEEDS KNOWN. ON ROOM AIR, NO S/S OF SOB OR RESPIRATORY DISTRESS. IV ACCESS LAC 20G SL, INTACT AND PATENT, NO S/S OF INFILTRATION. AMBULATORY, CONTINENT HAS BRP. SKIN ISSUES: R LOWER LEG VENOUS ULCER AND L LEG VENOUS ULCER DRESSINGS IN PLACE AND NO S/S OF DRAINAGE NOTED. SAFETY MEASURES IN PLACE: BED LOCKED AND IN LOWEST POSITION, SIDE RAILS UPx2, CALL LIGHT WITHIN REACH, AND HOB ELEVATED. WILL CONTINUE TO MONITOR.
--- NOTE | 2022-01-17 07:39 | NUR ---
WOUND CARE: RECEIVED ANOTHER CONSULT FOR LOWER LEG WOUNDS, PRESENT ON ADMISSION. PT FOLLOWED BY DPM. DEFER TO DR GAMA FOR WOUND TREATMENT PLAN. WILL SEE PRN.
[2022-01-17 08:00] VITALS: BP 93/53
[2022-01-17] MEDS: PANTOPRAZOLE 40 MG TABLET.DR PO SCH (08:14)
[2022-01-17] MEDS: LEVOTHYROXINE SODIUM 25 MCG TABLET PO SCH (08:14)
[2022-01-17] MEDS: BRIMONIDINE TARTRATE OPHT SOLN 5 ML BOTTLE EACHEYE SCH (08:19)
[2022-01-17] MEDS: TAMSULOSIN 0.4 MG CAP.SR.24H PO SCH (08:20)
[2022-01-17] MEDS: TIMOLOL 0.25% SOL OPHTH 10 ML BOTTLE EACHEYE SCH (08:20)
[2022-01-17 08:22] VITALS: BP 93/53
[2022-01-17] MEDS: AMIODARONE HCL 200 MG TABLET PO SCH (08:22)
[2022-01-17] MEDS: VALSARTAN 80 MG TABLET PO SCH (08:22)
[2022-01-17] MEDS: ATORVASTATIN 10 MG TABLET PO SCH (08:25)
[2022-01-17] MEDS: APIXABAN 5 MG TABLET PO SCH (08:25)
[2022-01-17] MEDS ORDERED: SULF1TAB48 PO (08:47)
[2022-01-17] MEDS: INSULIN REGULAR, HUMAN 100 UNIT/ML 3 ML VIAL SQ PRN (12:02)
--- NOTE | 2022-01-17 15:00 | NUR ---
SCIENCE INSTRUCTOR NOTES PATIENT D/C HOME STABLE A/Ox4 ABLE TO VERBALIZE NEEDS. PATIENT STABLE ON ROOM AIR, NO S/S OF RESPIRATORY DISTRESS. NO COMPLAINTS OF PAIN OR DISCOMFORT THROUGHOUT SHIFT. IV ACCESS REMOVED, ID BAND REMOVED. PHOTOS TAKEN OF BILATERAL LOWER EXTREMITIES FOR VENOUS ULCERS, DRESSINGS CHANGED AND PHOTOS FILED INTO CHART. DISCHARGE INSTRUCTIONS AND HEALTH TEACHINGS EXPLAINED AND GIVEN TO PATIENT. PATIENT VERBALIZED UNDERSTANDING. ALL FORMS SIGNED AND FILED IN CHART. PATIENT SON ARRIVED TO UNIT AND PATIENT LEFT UNIT @1455 ACCOMPANIED BY SON AND OLLIE LAKHANI. CHARGE NURSE AND MD AWARE OF DISCHARGE.
== END 2022-01-17 14:55 | disposition home or self-care (01) | DRG 683 ==
LOC: ER 16:33 → TRANSITION 22:03 → TELE 01-16 14:32 → MED 01-16 22:36
PROVIDERS: ADMIT Nurse Practitioner Family; ATTEND Internal Medicine
DX: N17.0 Acute kidney failure with tubular necrosis (principal); D68.59 Other primary thrombophilia; L97.819 Non-pressure chronic ulcer of other part of right lower leg with unspecified severity; L97.829 Non-pressure chronic ulcer of other part of left lower leg with unspecified severity; L03.115 Cellulitis of right lower limb; L03.116 Cellulitis of left lower limb; I50.32 Chronic diastolic (congestive) heart failure; I87.313 Chronic venous hypertension (idiopathic) with ulcer of bilateral lower extremity; E87.5 Hyperkalemia; I11.0 Hypertensive heart disease with heart failure; I48.91 Unspecified atrial fibrillation; E11.40 Type 2 diabetes mellitus with diabetic neuropathy, unspecified; I87.2 Venous insufficiency (chronic) (peripheral); E78.5 Hyperlipidemia, unspecified; Z79.84 Long term (current) use of oral hypoglycemic drugs; Z79.01 Long term (current) use of anticoagulants; Z79.899 Other long term (current) drug therapy; E03.9 Hypothyroidism, unspecified; I70.0 Atherosclerosis of aorta
CPT/HCPCS: 36415; 71045-TC; 80048-TC; 80076-TC; 82962-TC; 83605-TC; 83735-TC; 84100-TC; 85025-TC; 85730-TC; 87040-TC; 93970-TC; 97116-TC; 97530-TC; A6253; G0378; J0692; J0696; J2405; J3370; J7050; J7060

== ENCOUNTER 2022-07-24 16:14 | Inpatient (IN) | payer MEDICARE, OTHER ==
[~2022-07-24] VITALS: Ht 167.6 cm; Wt 75.3 kg
[~2022-07-24 16:14] MED LIST changes: -FURO40TA5 PO; +SULF1TAB48 PO
--- NOTE | 2022-07-24 17:00 | NUR ---
URINE COLLECTED SENT TO LAB
--- NOTE | 2022-07-24 17:03 | NUR ---
BIB BY FRIEND CC OF LOOSE STOOL SINCE YESTERDAY AND POLYURIA. AOX4 NOT IN DISTRESS VS STABLE AMBULATORY. CLAIMS PATIENT HAS ENLARGE PROSTRATE. MADE AWARE, CARRIED OUT NURSING ORDERS PLAN OF CARE CONTINUED
--- NOTE | 2022-07-24 17:08 | NUR ---
BLADDER SCAN PERFORMED OBTAINED 92ML VOLUME OF URINE
--- NOTE | 2022-07-24 17:42 | NUR ---
iv inserted left forearm 20G , BLD DRAWN, PATIENT HOOKED TO MONITOR.. PATIENT CONTINUES TO GO TO THE BATHROOM FOR URINATING. AT PRESENT PATIENT STABLE
[2022-07-24 17:51] LABS: BASOPHILS # (AUTO) 0.1 K/uL (0.0-0.2); BASOPHILS % (AUTO) 0.6 % (0.0-2.0); EOSINOPHILS % (AUTO) 2.5 % (0.0-6.0); HEMATOCRIT 39 % (39-51); HEMOGLOBIN 12.8 g/dL (13.5-17.5); LYMPHOCYTES # (AUTO) 1.3 K/uL (0.8-4.8); LYMPHOCYTES % (AUTO) 13.1 % (20.0-44.0); MEAN CORPUSCULAR HGB CONC 33 g/dl (31.0-36.0); MEAN CORPUSCULAR VOLUME 95 fL (80-96); MONOCYTES # (AUTO) 0.7 K/uL (0.1-1.30); MONOCYTES % (AUTO) 7.1 % (2.0-12.0); NEUTROPHILS # (AUTO) 7.9 K/uL (1.8-8.9); NEUTROPHILS % (AUTO) 76.7 % (43.0-81.0); PLATELET COUNT (AUTO) 178 K/uL (150-450); RED BLOOD CELL COUNT(AUTO) 4.13 MIL/uL (4.5-6.0); WHITE BLOOD COUNT (AUTO) 10.2 K/uL (4.3-11.0)
[2022-07-24 18:15] LABS: ALANINE AMINOTRANSFERASE 38 U/L (12-78); ALBUMIN 3.8 g/dL (3.4-5.0); ALKALINE PHOSPHATASE 101 U/L (46-116); ASPARTATE AMINOTRANSFERASE 22 U/L (15-37); BILIRUBIN,DIRECT 0.1 mg/dL (0.0-0.2); BILIRUBIN,TOTAL 0.4 mg/dL (0.2-1.0); CALCIUM, SERUM 9.1 mg/dL (8.5-10.1); CARBON DIOXIDE 26 mmol/L (21-32); CHLORIDE 104 mmol/L (98-107); CREATININE 1.9 mg/dL (0.6-1.3); GLUCOSE 135 mg/dL (74-106); LIPASE 108 U/L (73-393); POTASSIUM 4.9 mmol/L (3.5-5.1); SODIUM SERUM 137 mmol/L (136-145); TOTAL PROTEIN, SERUM 7.3 g/dL (6.4-8.2); UREA NITROGEN, BLOOD 41 mg/dL (7-18)
--- NOTE | 2022-07-24 18:17 | NUR ---
URINE COLLECTED SENT TO LAB FOR CULTURE AND SENSITIVITY
[2022-07-24 18:19] LABS: BILIRUBIN,URINE NEGATIVE (NEGATIVE); COLOR,URINE YELLOW (YELLOW); LEUKOCYTE ESTERASE ,URINE 2+ (NEGATIVE); NITRITE, URINE NEGATIVE (NEGATIVE); PROTEIN,URINE 2+ mg/dl (NEGATIVE); UGLUCOSE 3+ mg/dL (NEGATIVE); UROBILINOGEN,URINE 0.2 EU/dL (0.2)
[2022-07-24 19:00] LABS: BACTERIA,URINE 2+ /HPF (None Seen); RBC,URINE 51-80 /HPF (0-2); SQUAMOUS EPITHELIAL CELL,UR 0-2 /HPF (None Seen); WBC,URINE 21-50 /HPF (0-3)
--- NOTE | 2022-07-24 19:41 | NUR ---
COVID SWAB DONE AND SENT TO LAB
--- NOTE | 2022-07-24 21:06 | NUR ---
EPIC PANEL PAGED
--- NOTE | 2022-07-24 21:06 | NUR ---
Frederic baker in [facility] - 07/24/22 at 2107 by NOHELIA DEIDRE HI CALLED
[2022-07-24] MEDS ORDERED: MORPHINE SULFATE INJ 2 MG/ML DISP.SYRIN IV PRN (21:30)
[2022-07-24] MEDS ORDERED: ONDANSETRON HCL/PF 4 MG/2 ML VIAL IVP PRN (21:30)
[2022-07-24] MEDS ORDERED: DEXTROSE 50%-WATER 50 ML DISP.SYRIN IV PRN (21:30)
[2022-07-24] MEDS ORDERED: ACETAMINOPHEN 325 MG TABLET PO PRN (21:30)
[2022-07-24] MEDS ORDERED: CEFTRIAXONE 1GM BAG (ER ONLY) 1 GM/50 ML PIGGYBACK IV ONE (22:00)
[2022-07-24] MEDS: BIMATOPROST 2.5 ML DROPS OP SCH (22:00)
[2022-07-24] MEDS ORDERED: CEFEPIME 2 GM in IV D5W 100 ML IV ONE (22:00)
[2022-07-24 23:00] VITALS: BP 149/61
--- NOTE | 2022-07-24 23:01 | NUR ---
TRANSFERRED TO ROOM
[2022-07-24] MEDS: IV NS 0.9% 1,000 ML IV SCH (23:51)
[2022-07-25] MEDS: BLOOD SUGAR DIAGNOSTIC 1 EACH STRIP VI SCH ×6 (00:15→22:18)
[2022-07-25] MEDS: *INSULIN REGULAR(HUMULIN R)HUM 100 UNIT/ML VIAL SQ PRN ×2 (00:16→22:18)
--- NOTE | 2022-07-25 00:30 | NUR ---
SHAKER OUTELECTRIC METER READER NOTE ADMITTED THIS PATIENT FROM ER VIA GURNEY; STABLE, AMBULATORY WITH WALKER, ALERT AND ORIENTED X 4. HAITIAN SPEAKER UNDERSTAND AZERBAIJANI. ON ROOM AIR; TOLERATING WELL. DENIES ANY PAIN OR DISCOMFORT AT THIS TIME. VS TAKEN FOLLOWS: T 98.0, NV 76, RR 20, O2 SAT 97%, BP 149/61. ATTACHED TO EXTERNAL MONITORING BOX WHICH READS SINUS RHYTHM WITH BBB HR-72 BPM. WITH IV ACCESS ON LEFT FOREARM 20g; PATENT, INTACT AND SALINE LOCKED. ABLE TO VERBALIZE NEEDS. REFUSED BODY AND SKIN ASSESSMENT. PATIENT VERBALIZED "NURSE COMES HOME TO CHANGE DRESSING ON MY LEGS". INVENTORY OF PERSONAL BELONGINGS DONE. SAFETY PRECAUTIONS IMPLEMENTED: CALL LIGHT AND TABLE WITHIN REACH, SIDE RAILS UP X 2, BED IN LOWEST LOCKED POSITION. WILL CONTINUE PLAN OF CARE.
[2022-07-25] MEDS ORDERED: CEFEPIME 1 GM VIAL ONE (00:43)
[2022-07-25] MEDS: DOCUSATE SODIUM 100 MG CAPSULE PO SCH ×2 (00:55→22:00)
[2022-07-25 05:00] VITALS: BP 150/56
[2022-07-25] MEDS: IV NS 0.9% 1,000 ML IV SCH ×3 (05:18→17:29)
--- NOTE | 2022-07-25 06:38 | NUR ---
RN NOTE IV ACCESS PULLED OUT. PRESSURE DRESSING APPLIED. WILL CONTINUE TO MONITOR.
[2022-07-25] MEDS: INSULIN REGULAR, HUMAN 100 UNIT/ML 3 ML VIAL SQ PRN ×2 (06:39→17:15)
--- NOTE | 2022-07-25 06:55 | NUR ---
BATTERY REPAIRER CLOSING NOTE PATIENT IN BED; AWAKE, A/O X 4. STABLE ON ROOM AIR. IN NO ACUTE DISTRESS. DENIES ANY PAIN OR DISCOMFORT. ON TELE MONITORING WITH READING OF SR WITH BBB HR-71 BPM. NO IV ACCESS FOR NOW. PATIENT REFUSED IV REINSERTION AT THIS MOMENT. SAFETY MEASURES IN PLACE: CALL LIGHT AND TABLE WITHIN REACH, SIDE RAILS UP X 2, BED IN LOWEST LOCKED POSITION. ENDORSED TO MORNING SHIFT FOR MUMTAZ.
--- NOTE | 2022-07-25 07:05 | NUR ---
SUPERINTENDENT JOB OPENING NOTE PATIENT IN BED; AWAKE, A/O X 4. STABLE ON ROOM AIR. IN NO ACUTE DISTRESS. DENIES ANY PAIN OR DISCOMFORT. ON TELE MONITORING WITH READING OF SR WITH BBB HR-712 BPM. NO IV ACCESS FOR NOW. PATIENT REFUSED IV REINSERTION PER CLIENT SERVICE COORDINATOR NURSE. SAFETY MEASURES IN PLACE: CALL LIGHT AND TABLE WITHIN REACH, SIDE RAILS UP X 2, BED IN LOWEST LOCKED POSITION. WILL CONTINUE TO MONITOR THE PATIENT.
[2022-07-25 07:13] LABS: ALANINE AMINOTRANSFERASE 36 U/L (12-78); ALBUMIN 4.1 g/dL (3.4-5.0); ALKALINE PHOSPHATASE 107 U/L (46-116); ASPARTATE AMINOTRANSFERASE 19 U/L (15-37); BILIRUBIN,TOTAL 0.7 mg/dL (0.2-1.0); CALCIUM, SERUM 9.3 mg/dL (8.5-10.1); CARBON DIOXIDE 28 mmol/L (21-32); CHLORIDE 104 mmol/L (98-107); CREATININE 1.8 mg/dL (0.6-1.3); GLUCOSE 126 mg/dL (74-106); MAGNESIUM 2.1 mg/dL (1.8-2.4); PHOSPHORUS 3.8 mg/dL (2.5-4.9); POTASSIUM 4.4 mmol/L (3.5-5.1); SODIUM SERUM 139 mmol/L (136-145); TOTAL PROTEIN, SERUM 7.9 g/dL (6.4-8.2); UREA NITROGEN, BLOOD 38 mg/dL (7-18)
[2022-07-25 07:18] LABS: BASOPHILS % (AUTO) 0.5 % (0.0-2.0); EOSINOPHILS % (AUTO) 3.1 % (0.0-6.0); HEMATOCRIT 41 % (39-51); HEMOGLOBIN 13.5 g/dL (13.5-17.5); LYMPHOCYTES # (AUTO) 1.9 K/uL (0.8-4.8); LYMPHOCYTES % (AUTO) 19.2 % (20.0-44.0); MEAN CORPUSCULAR HGB CONC 33 g/dl (31.0-36.0); MEAN CORPUSCULAR VOLUME 95 fL (80-96); MONOCYTES % (AUTO) 10.5 % (2.0-12.0); NEUTROPHILS # (AUTO) 6.5 K/uL (1.8-8.9); NEUTROPHILS % (AUTO) 66.7 % (43.0-81.0); PLATELET COUNT (AUTO) 213 K/uL (150-450); RED BLOOD CELL COUNT(AUTO) 4.34 MIL/uL (4.5-6.0); WHITE BLOOD COUNT (AUTO) 9.8 K/uL (4.3-11.0)
[2022-07-25] MEDS: PANTOPRAZOLE 40 MG TABLET.DR PO SCH (07:30)
[2022-07-25] MEDS: VALSARTAN 80 MG TABLET PO SCH (10:15)
[2022-07-25] MEDS: LEVOTHYROXINE SODIUM 25 MCG TABLET PO SCH (10:16)
[2022-07-25] MEDS: AMIODARONE HCL 200 MG TABLET PO SCH (10:17)
[2022-07-25] MEDS: ATORVASTATIN 10 MG TABLET PO SCH (10:17)
[2022-07-25] MEDS: TAMSULOSIN 0.4 MG CAP.SR.24H PO SCH (10:18)
[2022-07-25] MEDS: POTASSIUM CHLORIDE 20 MEQ TAB.PRT.SR PO SCH (10:18)
[2022-07-25] MEDS: LISINOPRIL (10MG) 10 MG TABLET PO SCH (10:18)
[2022-07-25] MEDS: BRIMONIDINE TARTRATE OPHT SOLN 5 ML BOTTLE EACHEYE SCH ×2 (10:19→17:08)
[2022-07-25] MEDS: TIMOLOL 0.25% SOL OPHTH 10 ML BOTTLE EACHEYE SCH ×2 (10:19→17:08)
[2022-07-25] MEDS: APIXABAN 5 MG TABLET PO SCH ×2 (10:21→21:17)
[2022-07-25 16:47] VITALS: BP 110/62
--- NOTE | 2022-07-25 19:15 | NUR ---
ELEVATOR CONSTRUCTOR ELECTRIC CLOSING NOTE PATIENT IN BED; AWAKE, A/O X 4. STABLE ON ROOM AIR. IN NO ACUTE DISTRESS. DENIES ANY PAIN OR DISCOMFORT. ON TELE MONITORING WITH READING OF SR WITH BBB HR-73 BPM. IV ACCESS DANIEL #20, SAFETY MEASURES IN PLACE: CALL LIGHT AND TABLE WITHIN REACH, SIDE RAILS UP X 2, BED IN LOWEST LOCKED POSITION. ENDORSED TO MORNING SHIFT FOR MUMTAZ.
--- NOTE | 2022-07-25 19:30 | NUR ---
noc rn opening received patient in bed with eyes closed, easy to arouse, a/ox3. no s/s of apparent distress on room air. denies pain at this time. reading sr on the tele monitor with BBB. IV access on DANIEL #20g no fluids running at this time. safety in place-- bed in lowest locked position, call light within reach, side rails up x2. will cont. with patient's plan of care.
[2022-07-25 20:00] VITALS: BP 112/52
[2022-07-25] MEDS: CEFEPIME 1 GM in IV D5W 50 ML IV SCH (21:19)
--- NOTE | 2022-07-25 21:36 | NUR ---
noc rn note- non-admin patient refused Colace per patient he "poops just fine" and had bowel movement this morning. 2 tabs of Colace 100mg returned to [facility].
[2022-07-25] MEDS: BIMATOPROST 2.5 ML DROPS OP SCH (22:00)
--- NOTE | 2022-07-25 22:22 | NUR ---
dimitri rn note- non-admin sched 2199 dion non-administered. not on patient cassette nor bedside. Patient refusing coverage of 2 units; blood sugar 137. will monitor.
[2022-07-26] VITALS: BP 135/68
[2022-07-26] MEDS: IV NS 0.9% 1,000 ML IV SCH ×2 (00:10→06:50)
--- NOTE | 2022-07-26 01:38 | NUR ---
noc rn note- non-admin sched 0010 IV NS non-admin. Whole bag of NS still running because patient was refusing the fluid per report. Was able to convinced patient to resume fluid. will hang a new bag when bag of NS finishes.
[2022-07-26 04:00] VITALS: BP 123/62
[2022-07-26 06:59] LABS: BASOPHILS % (AUTO) 0.5 % (0.0-2.0); EOSINOPHILS % (AUTO) 4.8 % (0.0-6.0); HEMATOCRIT 36 % (39-51); HEMOGLOBIN 11.9 g/dL (13.5-17.5); LYMPHOCYTES # (AUTO) 1.7 K/uL (0.8-4.8); LYMPHOCYTES % (AUTO) 21.6 % (20.0-44.0); MEAN CORPUSCULAR HGB CONC 33 g/dl (31.0-36.0); MEAN CORPUSCULAR VOLUME 94 fL (80-96); MONOCYTES # (AUTO) 0.9 K/uL (0.1-1.30); NEUTROPHILS # (AUTO) 4.8 K/uL (1.8-8.9); NEUTROPHILS % (AUTO) 62.1 % (43.0-81.0); PLATELET COUNT (AUTO) 169 K/uL (150-450); RED BLOOD CELL COUNT(AUTO) 3.85 MIL/uL (4.5-6.0); WHITE BLOOD COUNT (AUTO) 7.8 K/uL (4.3-11.0)
[2022-07-26] MEDS: INSULIN REGULAR, HUMAN 100 UNIT/ML 3 ML VIAL SQ PRN ×2 (06:59→16:51)
[2022-07-26] MEDS: BLOOD SUGAR DIAGNOSTIC 1 EACH STRIP VI SCH ×4 (06:59→22:02)
--- NOTE | 2022-07-26 07:24 | NUR ---
noc rn closing all needs attended. report given to darrian Ornelas for continuity of patient care.
--- NOTE | 2022-07-26 07:30 | NUR ---
WAGON DRIVER CLOSING NOTE PATIENT IN BED; AWAKE, A/O X 4. STABLE ON ROOM AIR. IN NO ACUTE DISTRESS. DENIES ANY PAIN OR DISCOMFORT. PATIENT VERBALIZES EAGERNESS TO GO HOME. ON TELE MONITORING WITH READING OF SR WITH BBB HR-72 BPM. IV ACCESS DANIEL #20, SAFETY MEASURES IN PLACE: CALL LIGHT AND TABLE WITHIN REACH, SIDE RAILS UP X 2, BED IN LOWEST LOCKED POSITION. ENDORSED TO MORNING SHIFT FOR MUMTAZ. Addendum: 07/26/22 at 0811 by LITA CAVANAUGH JR, RN OPENING NOTE
[2022-07-26 08:00] VITALS: BP 115/56
[2022-07-26 08:05] LABS: CARBON DIOXIDE 24 mmol/L (21-32); CHLORIDE 107 mmol/L (98-107); CREATININE 1.5 mg/dL (0.6-1.3); GLUCOSE 118 mg/dL (74-106); MAGNESIUM 2.1 mg/dL (1.8-2.4); PHOSPHORUS 3.7 mg/dL (2.5-4.9); POTASSIUM 4.4 mmol/L (3.5-5.1); SODIUM SERUM 139 mmol/L (136-145); UREA NITROGEN, BLOOD 38 mg/dL (7-18)
[2022-07-26] MEDS: PANTOPRAZOLE 40 MG TABLET.DR PO SCH (08:29)
[2022-07-26] MEDS: LEVOTHYROXINE SODIUM 25 MCG TABLET PO SCH (08:29)
[2022-07-26] MEDS: ATORVASTATIN 10 MG TABLET PO SCH (08:30)
[2022-07-26] MEDS: TAMSULOSIN 0.4 MG CAP.SR.24H PO SCH (08:30)
[2022-07-26] MEDS: AMIODARONE HCL 200 MG TABLET PO SCH (08:33)
[2022-07-26] MEDS: POTASSIUM CHLORIDE 20 MEQ TAB.PRT.SR PO SCH (08:33)
[2022-07-26] MEDS: LISINOPRIL (10MG) 10 MG TABLET PO SCH (08:34)
[2022-07-26] MEDS: VALSARTAN 80 MG TABLET PO SCH (08:34)
[2022-07-26] MEDS: APIXABAN 5 MG TABLET PO SCH ×2 (08:35→21:46)
[2022-07-26] MEDS: BRIMONIDINE TARTRATE OPHT SOLN 5 ML BOTTLE EACHEYE SCH ×2 (08:37→16:49)
[2022-07-26] MEDS: TIMOLOL 0.25% SOL OPHTH 10 ML BOTTLE EACHEYE SCH ×2 (08:37→16:49)
--- NOTE | 2022-07-26 09:30 | NUR ---
MIDLINE INSERTION ORDERED AND APPROVED. AWAITING FOR ACTUAL INSERTION
[2022-07-26 12:00] VITALS: BP 100/50
[2022-07-26] MEDS: IV NS 0.9% 1,000 ML IV PRN (12:45)
--- NOTE | 2022-07-26 14:55 | NUR ---
Patient pulled out his DANIEL #20 IV. Educated patient of consequences and risks. Thank God, Midline IV #20 is already in placed
[2022-07-26 16:00] VITALS: BP 119/60
--- NOTE | 2022-07-26 18:39 | NUR ---
OUTREACH SPECIALIST CLOSING NOTE PATIENT IN BED; AWAKE, A/O X 4. STABLE ON ROOM AIR. IN NO ACUTE DISTRESS. DENIES ANY PAIN OR DISCOMFORT. PATIENT HAS BEEN IMPATIENT TO GO HOME, NEEDS CONSTANT REASSURANCE. ON TELE MONITORING WITH READING OF SR WITH BBB HR-76 BPM. WITH DANIEL MIDLINE IV #20, SAFETY MEASURES IN PLACE: CALL LIGHT AND TABLE WITHIN REACH, SIDE RAILS UP X 2, BED IN LOWEST LOCKED POSITION. ENDORSED TO EVENING SHIFT FOR MUMTAZ.
--- NOTE | 2022-07-26 19:30 | NUR ---
PLUSH BRUSHER OPENING NOTES - RECEIVED PATIENT SLEEPING, EASY TO AROUSE. A/O X4. BREATHING EVEN AND NON-LABORED ON ROOM AIR. NOT IN APPARENT DISTRESS. NO S/S OF PAIN OR DISCOMFORT AT THIS TIME. ON TELE MONITOR READING SINUS RHYTHM WITH BBB AT 76 BPM. HAS LEFT UPPER ARM MIDLINE WITH NS CURRENTLY DISCONNECTED. NO S/S OF INFILTRATION NOTED. SAFETY PRECAUTIONS IN PLACE: BED LOCKED AND IN LOW POSITION, SIDE RAILS UP X2, CALL LIGHT WITHIN REACH. WILL CONTINUE PLAN OF CARE.
[2022-07-26 20:00] VITALS: BP 126/73
[2022-07-26] MEDS: CEFEPIME 1 GM in IV D5W 50 ML IV SCH (20:21)
[2022-07-26] MEDS: DOCUSATE SODIUM 100 MG CAPSULE PO SCH (21:42)
--- NOTE | 2022-07-26 21:45 | NUR ---
ASKED NURSING MULTIMEDIA EDITOR FOR EARLINE, NONE AVAILABLE.
[2022-07-26] MEDS: BIMATOPROST 2.5 ML DROPS OP SCH (22:00)
[2022-07-26] MEDS: *INSULIN REGULAR(HUMULIN R)HUM 100 UNIT/ML VIAL SQ PRN (22:03)
[2022-07-27] VITALS: BP 130/68
[2022-07-27] MEDS: IV NS 0.9% 1,000 ML IV PRN ×2 (01:47→08:45)
[2022-07-27 04:00] VITALS: BP 123/68
[2022-07-27 07:00] VITALS: BP 117/55
--- NOTE | 2022-07-27 07:29 | NUR ---
REAL PROPERTY APPRAISER CLOSING NOTES - PATIENT RESTING IN BED, ABLE TO VERBALIZE NEEDS. NO RESPIRATORY OR CARDIAC DISTRESS NOTED. SATURATING AT 98% IN ROOM AIR. NO C/O DYSURIA, N/V OR DIZZINESS AT THIS TIME. AFEBRILE. ON TELE MONITOR READING SINUS BRADYCARDIA WITH BBB AT 57 BPM. LEFT UPPER ARM MIDLINE INTACT, PATENT AND FLUSHING. CLEAR YELLOW URINE OUTPUT NOTED. ALL DUE MEDS GIVEN AND NEEDS ATTENDED. SAFETY PRECAUTIONS MAINTAINED. WILL ENDORSE TO NEXT SHIFT FOR MUMTAZ.
[2022-07-27] MEDS: BLOOD SUGAR DIAGNOSTIC 1 EACH STRIP VI SCH ×2 (07:31→12:22)
[2022-07-27] MEDS: INSULIN REGULAR, HUMAN 100 UNIT/ML 3 ML VIAL SQ PRN (07:32)
--- NOTE | 2022-07-27 07:35 | NUR ---
DEPUTY OF COUNTER INTELLIGENCE OPENING NOTES: RECEIVED PATIENT SLEEPING, EASILY ROUSED, A/O X4. BREATHING EVEN AND NON-LABORED ON ROOM AIR. NO S/S OF SOB, DENIES PAIN AT THIS TIME. TELE MONITOR READING SINUS RHYTHM WITH BBB AT 73 BPM. HAS LEFT UPPER ARM MIDLINE WITH NS @ 150ML/HR. SAFETY PRECAUTIONS IN PLACE: BED LOCKED AND IN LOW POSITION, SIDE RAILS UP X2, CALL LIGHT WITHIN REACH, WILL CONTINUE PLAN OF CARE DURING SHIFT.
[2022-07-27] MEDS: TAMSULOSIN 0.4 MG CAP.SR.24H PO SCH (08:35)
[2022-07-27] MEDS: AMIODARONE HCL 200 MG TABLET PO SCH (08:36)
[2022-07-27] MEDS: PANTOPRAZOLE 40 MG TABLET.DR PO SCH (08:36)
[2022-07-27] MEDS: LISINOPRIL (10MG) 10 MG TABLET PO SCH (08:36)
[2022-07-27] MEDS: LEVOTHYROXINE SODIUM 25 MCG TABLET PO SCH (08:37)
[2022-07-27] MEDS: VALSARTAN 80 MG TABLET PO SCH (08:37)
[2022-07-27] MEDS: POTASSIUM CHLORIDE 20 MEQ TAB.PRT.SR PO SCH (08:38)
[2022-07-27] MEDS: ATORVASTATIN 10 MG TABLET PO SCH (08:38)
[2022-07-27] MEDS: APIXABAN 5 MG TABLET PO SCH (08:38)
[2022-07-27] MEDS: TIMOLOL 0.25% SOL OPHTH 10 ML BOTTLE EACHEYE SCH (08:43)
[2022-07-27] MEDS: BRIMONIDINE TARTRATE OPHT SOLN 5 ML BOTTLE EACHEYE SCH (08:44)
[2022-07-27 12:00] VITALS: BP 133/63
[2022-07-27] MEDS ORDERED: LEVO750T46 PO (12:21)
[2022-07-27] MEDS: *INSULIN REGULAR(HUMULIN R)HUM 100 UNIT/ML VIAL SQ PRN (12:23)
--- NOTE | 2022-07-27 13:30 | NUR ---
RN DC NOTES: PT CLEARED FOR DC, VITALS WNL, ON RA WITH NO S/S OF SOB. DISCUSSED DC INSTRUCTIONS WITH PT, RECONCILED BELONGINGS, PT SIGNED ALL DOCUMENTS. IV ACCESS, ID BAND AND TELE MONITOR REMOVED. PT LEFT UNIT WITH GRANDDAUGHTER, TRANSPORTATION IS PRIVATE CAR.
== END 2022-07-27 13:30 | disposition home or self-care (01) | DRG 689 ==
LOC: ER 16:20 → MED 21:27 → TELE 23:13
PROVIDERS: ADMIT Internal Medicine; ATTEND Registered Nurse
PROC: 05HA33Z Insertion of Infusion Device into Left Brachial Vein, Percutaneous Approach (ICD-10-PCS; principal; 2022-07-26)
DX: N13.6 Pyonephrosis (principal); I50.33 Acute on chronic diastolic (congestive) heart failure; I48.20 Chronic atrial fibrillation, unspecified; N17.0 Acute kidney failure with tubular necrosis; I11.0 Hypertensive heart disease with heart failure; N40.0 Benign prostatic hyperplasia without lower urinary tract symptoms; D64.9 Anemia, unspecified; E11.9 Type 2 diabetes mellitus without complications; E03.9 Hypothyroidism, unspecified; E78.5 Hyperlipidemia, unspecified; Z79.01 Long term (current) use of anticoagulants; H54.62 Unqualified visual loss, left eye, normal vision right eye; H40.9 Unspecified glaucoma; Z20.822 Contact with and (suspected) exposure to COVID-19
CPT/HCPCS: 36415; 76770-TC; 80048-TC; 80053-TC; 80076-TC; 81001; 82962-TC; 83605-TC; 83690-TC; 83735-TC; 84100-TC; 84443-TC; 85025-TC; 85730-TC; 87081-TC; 87086-TC; A4223; C9803; G0378; J0692; J0696; J1815; J7030; J7060

== ENCOUNTER → 2023-02-15 | Emergency (ER) | payer MEDICARE, OTHER ==
[~2023-02-15] VITALS: Ht 165.1 cm; Wt 67.1 kg
[~2023-02-15] MED LIST changes: +IBUP-1953 PO; +KETOROLAC TROMETHAMINE INJ 30 MG/ML VIAL IM ONE; +KETOROLAC TROMETHAMINE INJ 30 MG/ML VIAL ONE; +LEVO750T46 PO; -METF-440 PO; -SITA1TAB2 PO; -SULF1TAB48 PO
[2023-02-15 15:47] VITALS: TEMP 98.7
[2023-02-15 17:55] VITALS: BP 128/78; O2SAT 100
== END | disposition home or self-care (01) ==
LOC: ER 15:22
DX: S33.5XXA Sprain of ligaments of lumbar spine, initial encounter (principal); I10 Essential (primary) hypertension; E78.5 Hyperlipidemia, unspecified; I48.91 Unspecified atrial fibrillation; E11.9 Type 2 diabetes mellitus without complications; N40.0 Benign prostatic hyperplasia without lower urinary tract symptoms; Z98.890 Other specified postprocedural states; Z79.899 Other long term (current) drug therapy; W18.39XA Other fall on same level, initial encounter; Y93.01 Activity, walking, marching and hiking; Y92.89 Other specified places as the place of occurrence of the external cause; Y99.8 Other external cause status
CPT/HCPCS: 99285; 72131; 96372; J1885

== ENCOUNTER 2023-02-19 14:27 | Inpatient (IN) | payer MEDICARE, OTHER ==
[~2023-02-19] VITALS: Ht 165.1 cm; Wt 71.0 kg
[~2023-02-19 14:27] MED LIST changes: -KETOROLAC TROMETHAMINE INJ 30 MG/ML VIAL IM ONE; -KETOROLAC TROMETHAMINE INJ 30 MG/ML VIAL ONE
[2023-02-19 15:24] LABS: BASOPHILS % (AUTO) 0.2 % (0.0-2.0); EOSINOPHILS # (AUTO) 0.4 K/uL (0.0-0.7); HEMATOCRIT 37 % (39-51); HEMOGLOBIN 12.5 g/dL (13.5-17.5); LYMPHOCYTES # (AUTO) 1.9 K/uL (0.8-4.8); LYMPHOCYTES % (AUTO) 17.8 % (20.0-44.0); MEAN CORPUSCULAR HEMOGLOBIN 31 PG (26.0-33.0); MEAN CORPUSCULAR HGB CONC 34 g/dl (31.0-36.0); MEAN CORPUSCULAR VOLUME 90 fL (80-96); MONOCYTES # (AUTO) 1.2 K/uL (0.1-1.30); NEUTROPHILS # (AUTO) 7.1 K/uL (1.8-8.9); PLATELET COUNT (AUTO) 236 K/uL (150-450); RED CELL DISTRIBUTION WIDTH 13.2 % (11.5-15.0); WHITE BLOOD COUNT (AUTO) 10.6 K/uL (4.3-11.0)
[2023-02-19] MEDS ORDERED: IV NS 0.9% 1,000 ML BAG IV ONE (15:30)
[2023-02-19 15:33] LABS: CALCIUM, SERUM 9.1 mg/dL (8.5-10.1); CARBON DIOXIDE 21 mmol/L (21-32); CHLORIDE 107 mmol/L (98-107); CREATININE 1.2 mg/dL (0.6-1.3); GLUCOSE 137 mg/dL (74-106); POTASSIUM 4.4 mmol/L (3.5-5.1); SODIUM SERUM 139 mmol/L (136-145); UREA NITROGEN, BLOOD 40 mg/dL (7-18)
[2023-02-19] MEDS ORDERED: DOXY-326 PO (15:43)
[2023-02-19] MEDS ORDERED: IBUP-1953 PO (15:43)
[2023-02-19] MEDS ORDERED: BRIN8DRO2 RIGHTEYE (15:43)
[2023-02-19] MEDS ORDERED: SITA1TAB2 PO (15:43)
[2023-02-19] MEDS ORDERED: TIMO5DRO18 RIGHTEYE (15:43)
[2023-02-19] MEDS ORDERED: GEMTESA PO (15:43)
[2023-02-19 15:53] LABS: ALANINE AMINOTRANSFERASE 14 U/L (12-78); ALBUMIN 3.2 g/dL (3.4-5.0); ALKALINE PHOSPHATASE 149 U/L (46-116); ASPARTATE AMINOTRANSFERASE 11 U/L (15-37); BILIRUBIN,DIRECT 0.1 mg/dL (0.0-0.2); BILIRUBIN,TOTAL 0.4 mg/dL (0.2-1.0); TOTAL PROTEIN, SERUM 6.6 g/dL (6.4-8.2)
[2023-02-19 15:57] LABS: THYROID STIMULATING HORMONE 4.301 uIU/mL (0.358-3.74)
[2023-02-19] MEDS ORDERED: AMIODARONE 450 MG in IV D5W 250 ML IV ONE (16:00)
[2023-02-19] MEDS ORDERED: PIPERACILLIN /TAZOBACTAM 3.375 G in IV D5W 50 ML IV ONE (16:30)
[2023-02-19] MEDS ORDERED: AMIODARONE 150 MG/3 ML VIAL IV ONE (16:30)
[2023-02-19 16:41] LABS: APPEARANCE,URINE CLOUDY (CLEAR); BILIRUBIN,URINE NEGATIVE (NEGATIVE); BLOOD, URINE 2+ Ery/uL (NEGATIVE); COLOR,URINE YELLOW (YELLOW); KETONES,URINE NEGATIVE (NEGATIVE); LEUKOCYTE ESTERASE ,URINE 3+ (NEGATIVE); NITRITE, URINE NEGATIVE (NEGATIVE); PROTEIN,URINE 2+ mg/dl (NEGATIVE); UGLUCOSE NEGATIVE (NEGATIVE); UROBILINOGEN,URINE 0.2 EU/dL (0.2)
[2023-02-19 17:00] LABS: RBC,URINE 21-50 /HPF (0-2)
[2023-02-19] MEDS ORDERED: ENOXAPARIN SODIUM 40 MG/0.4 ML DISP.SYRIN SQ SCH (17:00)
[2023-02-19] MEDS ORDERED: Z GUARD REMEDY 4 OZ OINT TP PRN (17:00)
[2023-02-19] MEDS ORDERED: ACETAMINOPHEN 325 MG TABLET PO PRN (17:00)
[2023-02-19] MEDS ORDERED: ONDANSETRON HCL/PF 4 MG/2 ML VIAL IVP PRN (17:00)
[2023-02-19 17:01] LABS: ADD URINE CULTURE YES; BACTERIA,URINE 3+ /HPF (None Seen); SQUAMOUS EPITHELIAL CELL,UR 0-2 /HPF (None Seen); WBC,URINE TOO NUMEROUS TO COUN /HPF (0-3)
[2023-02-19] MEDS ORDERED: ENOXAPARIN SODIUM 80 MG/0.8 ML DISP.SYRIN SQ ONE (17:49)
[2023-02-19] MEDS ORDERED: CEFTRIAXONE 1GM BAG (ER ONLY) 50 ML IV ONE (18:53)
[2023-02-19] MEDS: CEFTRIAXONE 1 G in IV D5W 50 ML IV SCH (19:10)
[2023-02-19 21:45] VITALS: BP 123/63; TEMP 97.7; O2SAT 98
[2023-02-19] MEDS: AMIODARONE 450 MG in IV D5W 241 ML IV PRN ×2 (22:13→22:47)
[2023-02-20] VITALS: BP 117/65; TEMP 97.8; O2SAT 98
[2023-02-20 04:00] VITALS: BP 127/66; TEMP 97.3; O2SAT 98
[2023-02-20 07:16] LABS: BASOPHILS # (AUTO) 0.1 K/uL (0.0-0.2); BASOPHILS % (AUTO) 0.6 % (0.0-2.0); EOSINOPHILS # (AUTO) 0.4 K/uL (0.0-0.7); EOSINOPHILS % (AUTO) 3.8 % (0.0-6.0); HEMATOCRIT 37 % (39-51); HEMOGLOBIN 12.4 g/dL (13.5-17.5); LYMPHOCYTES # (AUTO) 1.3 K/uL (0.8-4.8); LYMPHOCYTES % (AUTO) 13.6 % (20.0-44.0); MEAN CORPUSCULAR HEMOGLOBIN 31 PG (26.0-33.0); MEAN CORPUSCULAR HGB CONC 34 g/dl (31.0-36.0); MEAN CORPUSCULAR VOLUME 90 fL (80-96); MONOCYTES # (AUTO) 0.9 K/uL (0.1-1.30); MONOCYTES % (AUTO) 8.9 % (2.0-12.0); NEUTROPHILS # (AUTO) 7.1 K/uL (1.8-8.9); NEUTROPHILS % (AUTO) 73.1 % (43.0-81.0); PLATELET COUNT (AUTO) 228 K/uL (150-450); RED BLOOD CELL COUNT(AUTO) 4.05 MIL/uL (4.5-6.0); WHITE BLOOD COUNT (AUTO) 9.8 K/uL (4.3-11.0)
[2023-02-20 07:40] LABS: ALBUMIN 3.2 g/dL (3.4-5.0); BILIRUBIN,TOTAL 0.6 mg/dL (0.2-1.0); CALCIUM, SERUM 9.1 mg/dL (8.5-10.1); CREATININE 1.1 mg/dL (0.6-1.3); MAGNESIUM 1.8 mg/dL (1.8-2.4); PHOSPHORUS 3.1 mg/dL (2.5-4.9); POTASSIUM 4.2 mmol/L (3.5-5.1); TOTAL PROTEIN, SERUM 6.3 g/dL (6.4-8.2)
[2023-02-20 07:54] LABS: THYROID STIMULATING HORMONE 2.709 uIU/mL (0.358-3.74)
[2023-02-20 08:00] VITALS: BP 128/61; TEMP 98.4; O2SAT 98
[2023-02-20] MEDS: ENOXAPARIN SODIUM 80 MG/0.8 ML DISP.SYRIN SQ SCH ×2 (08:51→21:20)
[2023-02-20 12:00] VITALS: BP 119/59; TEMP 98.4; O2SAT 96
[2023-02-20] MEDS: AMIODARONE 450 MG in IV D5W 241 ML IV PRN (15:23)
[2023-02-20 16:00] VITALS: BP 125/55; TEMP 98.7; O2SAT 99
[2023-02-20] MEDS ORDERED: LORAZEPAM INJ 2 MG/ML VIAL IV PRN ×2 (16:00→23:30)
[2023-02-20] MEDS: CEFTRIAXONE 1 G in IV D5W 50 ML IV SCH (18:52)
[2023-02-20 20:00] VITALS: BP 154/72; TEMP 98.7; O2SAT 99
[2023-02-20] MEDS ORDERED: LORAZEPAM INJ 2 MG/ML VIAL IV ONE (23:30)
[2023-02-21] VITALS: BP 126/67; TEMP 97.9; O2SAT 96
[2023-02-21] MEDS: AMIODARONE HCL 200 MG TABLET PO SCH ×4 (00:04→23:56)
[2023-02-21 04:00] VITALS: BP 124/73; TEMP 97.7; O2SAT 96
[2023-02-21 08:00] VITALS: BP 104/74; TEMP 97.9; O2SAT 97
[2023-02-21] MEDS: ENOXAPARIN SODIUM 80 MG/0.8 ML DISP.SYRIN SQ SCH (08:26)
[2023-02-21] MEDS: DIVALPROEX SODIUM 125 MG CAP.SPRINK PO SCH ×3 (10:37→20:21)
[2023-02-21 12:00] VITALS: BP 120/63; TEMP 97.9; O2SAT 99
[2023-02-21] MEDS: TIMOLOL 0.5% SOLN OPHTH 5 ML BOTTLE RIGHTEYE SCH ×2 (13:12→17:02)
[2023-02-21 16:00] VITALS: BP 103/56; TEMP 97.9; O2SAT 100
[2023-02-21] MEDS: APIXABAN 5 MG TABLET PO SCH (17:01)
[2023-02-21] MEDS: EYE RIGHTEYE SCH (17:02)
[2023-02-21] MEDS: SIMBRINZA RIGHTEYE SCH (17:02)
[2023-02-21] MEDS: CEFTRIAXONE 1 G in IV D5W 50 ML IV SCH (18:38)
[2023-02-21 20:00] VITALS: BP 145/92; TEMP 98; O2SAT 97
[2023-02-22] VITALS: BP 142/85; TEMP 98.2; O2SAT 98
[2023-02-22] MEDS: TRAMADOL HCL 50 MG TABLET PO PRN (02:26)
[2023-02-22 06:00] VITALS: BP 135/81; TEMP 98.3; O2SAT 95
[2023-02-22 07:15] LABS: BASOPHILS % (AUTO) 0.4 % (0.0-2.0); EOSINOPHILS # (AUTO) 0.4 K/uL (0.0-0.7); EOSINOPHILS % (AUTO) 3.4 % (0.0-6.0); HEMATOCRIT 39 % (39-51); LYMPHOCYTES # (AUTO) 1.4 K/uL (0.8-4.8); LYMPHOCYTES % (AUTO) 13.4 % (20.0-44.0); MEAN CORPUSCULAR HEMOGLOBIN 30 PG (26.0-33.0); MEAN CORPUSCULAR HGB CONC 34 g/dl (31.0-36.0); MEAN CORPUSCULAR VOLUME 90 fL (80-96); MONOCYTES # (AUTO) 1.1 K/uL (0.1-1.30); MONOCYTES % (AUTO) 10.6 % (2.0-12.0); NEUTROPHILS # (AUTO) 7.6 K/uL (1.8-8.9); NEUTROPHILS % (AUTO) 72.2 % (43.0-81.0); PLATELET COUNT (AUTO) 232 K/uL (150-450); RED BLOOD CELL COUNT(AUTO) 4.31 MIL/uL (4.5-6.0); WHITE BLOOD COUNT (AUTO) 10.5 K/uL (4.3-11.0)
[2023-02-22 07:38] LABS: ALANINE AMINOTRANSFERASE 16 U/L (12-78); ALKALINE PHOSPHATASE 163 U/L (46-116); ASPARTATE AMINOTRANSFERASE 13 U/L (15-37); BILIRUBIN,TOTAL 0.6 mg/dL (0.2-1.0); CALCIUM, SERUM 9.1 mg/dL (8.5-10.1); CARBON DIOXIDE 25 mmol/L (21-32); CHLORIDE 106 mmol/L (98-107); CREATININE 1.3 mg/dL (0.6-1.3); GLUCOSE 127 mg/dL (74-106); PHOSPHORUS 2.7 mg/dL (2.5-4.9); POTASSIUM 4.1 mmol/L (3.5-5.1); SODIUM SERUM 138 mmol/L (136-145); TOTAL PROTEIN, SERUM 6.6 g/dL (6.4-8.2); UREA NITROGEN, BLOOD 24 mg/dL (7-18)
[2023-02-22 08:00] VITALS: BP 117/62; TEMP 97.7; O2SAT 97
[2023-02-22] MEDS: APIXABAN 5 MG TABLET PO SCH ×3 (09:00→16:38)
[2023-02-22] MEDS: AMIODARONE HCL 200 MG TABLET PO SCH ×2 (09:09→16:50)
[2023-02-22] MEDS: DIVALPROEX SODIUM 125 MG CAP.SPRINK PO SCH ×3 (09:09→21:18)
[2023-02-22] MEDS: EYE RIGHTEYE SCH ×2 (09:12→16:50)
[2023-02-22] MEDS: TIMOLOL 0.5% SOLN OPHTH 5 ML BOTTLE RIGHTEYE SCH ×2 (09:12→16:46)
[2023-02-22] MEDS: SIMBRINZA RIGHTEYE SCH ×2 (09:12→16:50)
[2023-02-22 16:00] VITALS: BP 103/59; TEMP 97.7; O2SAT 97
[2023-02-22] MEDS: CEFTRIAXONE 1 G in IV D5W 50 ML IV SCH (17:37)
[2023-02-23 00:52] VITALS: BP 144/74; TEMP 98.2; O2SAT 97
[2023-02-23] MEDS: AMIODARONE HCL 200 MG TABLET PO SCH ×3 (00:52→17:47)
[2023-02-23] MEDS: TRAMADOL HCL 50 MG TABLET PO PRN (02:38)
[2023-02-23 08:00] VITALS: BP 152/69; TEMP 98.4; O2SAT 97
[2023-02-23] MEDS: EYE RIGHTEYE SCH ×2 (08:15→17:32)
[2023-02-23] MEDS: SIMBRINZA RIGHTEYE SCH ×2 (08:15→17:32)
[2023-02-23] MEDS: TIMOLOL 0.5% SOLN OPHTH 5 ML BOTTLE RIGHTEYE SCH ×2 (08:15→17:33)
[2023-02-23] MEDS: DIVALPROEX SODIUM 125 MG CAP.SPRINK PO SCH ×3 (08:17→21:15)
[2023-02-23] MEDS: APIXABAN 5 MG TABLET PO SCH ×2 (08:17→17:00)
[2023-02-23 16:00] VITALS: BP 140/69; TEMP 98.1; O2SAT 97
[2023-02-23] MEDS: CEFTRIAXONE 1 G in IV D5W 50 ML IV SCH (18:54)
[2023-02-24] MEDS: TRAMADOL HCL 50 MG TABLET PO PRN (00:06)
[2023-02-24] MEDS: AMIODARONE HCL 200 MG TABLET PO SCH ×3 (00:06→16:00)
[2023-02-24 00:11] VITALS: BP 140/70; TEMP 98.1; O2SAT 97
[2023-02-24 08:00] VITALS: BP 153/77; TEMP 98.4; O2SAT 99
[2023-02-24] MEDS: APIXABAN 5 MG TABLET PO SCH ×2 (08:02→17:15)
[2023-02-24] MEDS: TIMOLOL 0.5% SOLN OPHTH 5 ML BOTTLE RIGHTEYE SCH ×2 (08:02→16:41)
[2023-02-24] MEDS: EYE RIGHTEYE SCH ×2 (08:02→16:41)
[2023-02-24] MEDS: SIMBRINZA RIGHTEYE SCH ×2 (08:02→16:41)
[2023-02-24] MEDS: DIVALPROEX SODIUM 125 MG CAP.SPRINK PO SCH ×3 (08:12→22:06)
[2023-02-24 16:00] VITALS: BP 109/58; TEMP 97.7; O2SAT 99
[2023-02-24] MEDS: CEFTRIAXONE 1 G in IV D5W 50 ML IV SCH (17:36)
[2023-02-24] MEDS ORDERED: QUETIAPINE FUMARATE 100 MG TABLET PO SCH (22:00)
[2023-02-25] VITALS: BP 111/55; TEMP 97.7; O2SAT 99
[2023-02-25 07:18] LABS: BASOPHILS # (AUTO) 0.1 K/uL (0.0-0.2); BASOPHILS % (AUTO) 0.5 % (0.0-2.0); EOSINOPHILS # (AUTO) 0.4 K/uL (0.0-0.7); EOSINOPHILS % (AUTO) 4.1 % (0.0-6.0); HEMATOCRIT 39 % (39-51); HEMOGLOBIN 13.3 g/dL (13.5-17.5); LYMPHOCYTES # (AUTO) 2.4 K/uL (0.8-4.8); LYMPHOCYTES % (AUTO) 21.9 % (20.0-44.0); MEAN CORPUSCULAR HEMOGLOBIN 31 PG (26.0-33.0); MEAN CORPUSCULAR HGB CONC 34 g/dl (31.0-36.0); MEAN CORPUSCULAR VOLUME 92 fL (80-96); MONOCYTES # (AUTO) 1.1 K/uL (0.1-1.30); MONOCYTES % (AUTO) 9.6 % (2.0-12.0); NEUTROPHILS % (AUTO) 63.9 % (43.0-81.0); PLATELET COUNT (AUTO) 222 K/uL (150-450); RED BLOOD CELL COUNT(AUTO) 4.29 MIL/uL (4.5-6.0); RED CELL DISTRIBUTION WIDTH 13.2 % (11.5-15.0)
[2023-02-25 07:42] LABS: CALCIUM, SERUM 9.2 mg/dL (8.5-10.1); CARBON DIOXIDE 24 mmol/L (21-32); CHLORIDE 103 mmol/L (98-107); CREATININE 1.5 mg/dL (0.6-1.3); GLUCOSE 105 mg/dL (74-106); MAGNESIUM 2.4 mg/dL (1.8-2.4); PHOSPHORUS 4.2 mg/dL (2.5-4.9); POTASSIUM 4.1 mmol/L (3.5-5.1); SODIUM SERUM 139 mmol/L (136-145); UREA NITROGEN, BLOOD 32 mg/dL (7-18)
[2023-02-25 08:00] VITALS: BP 100/54; TEMP 98.2; O2SAT 99
[2023-02-25] MEDS: DIVALPROEX SODIUM 125 MG CAP.SPRINK PO SCH ×2 (09:06→16:37)
[2023-02-25] MEDS: AMIODARONE HCL 200 MG TABLET PO SCH ×2 (09:06)
[2023-02-25] MEDS: APIXABAN 5 MG TABLET PO SCH ×2 (09:08→16:39)
[2023-02-25] MEDS: TIMOLOL 0.5% SOLN OPHTH 5 ML BOTTLE RIGHTEYE SCH ×2 (09:14→16:44)
[2023-02-25] MEDS: SIMBRINZA RIGHTEYE SCH ×2 (09:15→16:38)
[2023-02-25] MEDS: EYE RIGHTEYE SCH ×2 (09:15→16:38)
[2023-02-25] MEDS ORDERED: AMIO200T7 PO (14:50)
[2023-02-25] MEDS ORDERED: APIX5TAB PO (14:50)
[2023-02-25] MEDS ORDERED: CEPH250C PO (14:50)
[2023-02-25] MEDS ORDERED: DIVA125C2 PO (14:50)
[2023-02-25] MEDS ORDERED: QUET300T2 PO (14:50)
[2023-02-25 16:00] VITALS: BP 93/59; TEMP 98.1; O2SAT 97
== END 2023-02-25 17:42 | DRG 871 ==
LOC: ER 14:51 → ICU 20:45 → TELE1 22:23 → TELE-TD 22:35 → MEDSG1 02-22 09:58
PROVIDERS: ADMIT Internal Medicine; ATTEND Nurse Practitioner Acute Care
DX: A41.9 Sepsis, unspecified organism (principal); G93.41 Metabolic encephalopathy; N17.0 Acute kidney failure with tubular necrosis; D68.59 Other primary thrombophilia; N39.0 Urinary tract infection, site not specified; I48.0 Paroxysmal atrial fibrillation; Z20.822 Contact with and (suspected) exposure to COVID-19; H40.9 Unspecified glaucoma; E11.9 Type 2 diabetes mellitus without complications; I50.9 Heart failure, unspecified; I11.0 Hypertensive heart disease with heart failure; E78.5 Hyperlipidemia, unspecified; I48.91 Unspecified atrial fibrillation; N40.0 Benign prostatic hyperplasia without lower urinary tract symptoms; Z79.84 Long term (current) use of oral hypoglycemic drugs; F03.90 Unspecified dementia, unspecified severity, without behavioral disturbance, psychotic disturbance, mood disturbance, and anxiety; H54.7 Unspecified visual loss; Z91.199 Patient's noncompliance with other medical treatment and regimen due to unspecified reason; Z79.899 Other long term (current) drug therapy; R31.0 Gross hematuria; T39.395A Adverse effect of other nonsteroidal anti-inflammatory drugs [NSAID], initial encounter; Y92.9 Unspecified place or not applicable; E86.9 Volume depletion, unspecified; F39 Unspecified mood [affective] disorder; B96.89 Other specified bacterial agents as the cause of diseases classified elsewhere
CPT/HCPCS: 36415; 70450-TC; 71045-TC; 80048-TC; 80053-TC; 80076-TC; 81001; 83605-TC; 83735-TC; 84100-TC; 84443-TC; 84484-TC; 85025-TC; 87040-TC; 87086-TC; 93307-TC; 97110-TC; 97112-TC; 97116-TC; 97530-TC; A4217; A4223; A6403; G0378; J0282; J0696; J1650; J2060; J2543; J7050; J7060

== ENCOUNTER 2023-12-17 21:35 | Inpatient (IN) | payer MEDICARE, OTHER ==
[~2023-12-17] VITALS: Ht 172.7 cm; Wt 67.6 kg
[~2023-12-17 21:35] MED LIST changes: -ATOR10TA PO; -BIMA2.5D5 EACHEYE; -BRIM5DRO5 EACHEYE; +BRIN8DRO2 RIGHTEYE; +CITR15SO PO; +DIVA125C2 PO; +DIVA250T PO; -DOCU-141 PO; +GEMTESA PO; -IBUP-1953 PO; -LEVO25TA7 PO; +LEVO50TA8 PO; -LEVO750T46 PO; -LISI10TA29 PO; -PANT40TA49 PO; -POTA20TA83 PO; +QUET300T2 PO; -TAMS-12 PO; -TIMO10DR19 EACHEYE; +TIMO5DRO18 RIGHTEYE; -VALS80TA31 PO
[2023-12-17] MEDS ORDERED: LORAZEPAM INJ 2 MG/ML VIAL ONE ×2 (21:59→22:42)
[2023-12-17] MEDS: LORAZEPAM INJ 2 MG/ML VIAL IM ONE ×2 (22:07→22:48)
[2023-12-18] VITALS (24 sets, daily range): BP systolic 92–147; BP diastolic 47–94; TEMP 96.5–98; O2SAT 94–100
[2023-12-18 00:15] LABS: BASOPHILS % (AUTO) 0.4 % (0.0-2.0); EOSINOPHILS # (AUTO) 0.5 K/uL (0.0-0.7); EOSINOPHILS % (AUTO) 3.6 % (0.0-6.0); HEMATOCRIT 32 % (39-51); HEMOGLOBIN 10.6 g/dL (13.5-17.5); LYMPHOCYTES # (AUTO) 1.9 K/uL (0.8-4.8); LYMPHOCYTES % (AUTO) 14.9 % (20.0-44.0); MEAN CORPUSCULAR HEMOGLOBIN 30 PG (26.0-33.0); MEAN CORPUSCULAR HGB CONC 33 g/dl (31.0-36.0); MEAN CORPUSCULAR VOLUME 91 fL (80-96); MONOCYTES # (AUTO) 1.2 K/uL (0.1-1.30); MONOCYTES % (AUTO) 9.3 % (2.0-12.0); NEUTROPHILS # (AUTO) 9.2 K/uL (1.8-8.9); NEUTROPHILS % (AUTO) 71.8 % (43.0-81.0); PLATELET COUNT (AUTO) 205 K/uL (150-450); RED CELL DISTRIBUTION WIDTH 14.4 % (11.5-15.0); WHITE BLOOD COUNT (AUTO) 12.8 K/uL (4.3-11.0)
[2023-12-18 00:41] LABS: CALCIUM, SERUM 9.3 mg/dL (8.5-10.1); CARBON DIOXIDE 26 mmol/L (21-32); CHLORIDE 103 mmol/L (98-107); CREATININE 2.3 mg/dL (0.6-1.3); GLUCOSE 164 mg/dL (74-106); POTASSIUM 4.5 mmol/L (3.5-5.1); SODIUM SERUM 138 mmol/L (136-145); UREA NITROGEN, BLOOD 64 mg/dL (7-18)
[2023-12-18 00:44] LABS: INR 0.99 (0.91-1.10); PARTIAL THROMBOPLASTIN TIME 32.5 SEC (24.3-34.3); PROTHROMBIN TIME 10.5 SECS (9.2-11.1)
[2023-12-18] MEDS ORDERED: INSULIN REGULAR, HUMAN 100 UNIT/ML 3 ML VIAL SQ PRN (01:30)
[2023-12-18] MEDS ORDERED: hydrALAZINE HCL IV 20 MG VIAL IV PRN (01:30)
[2023-12-18] MEDS ORDERED: DEXTROSE 50%-WATER 50 ML DISP.SYRIN IV PRN (01:30)
[2023-12-18] MEDS: LORAZEPAM INJ 2 MG/ML VIAL IV ONE (04:38)
[2023-12-18] MEDS: BLOOD SUGAR DIAGNOSTIC 1 EACH STRIP IN SCH (05:47)
[2023-12-18] MEDS ORDERED: BLOOD SUGAR DIAGNOSTIC 1 EACH STRIP IN SCH ×2 (06:00→07:30)
[2023-12-18] MEDS: LEVOTHYROXINE SODIUM 50 MCG TABLET PO SCH (07:00)
[2023-12-18] MEDS ORDERED: NA P133E RC (08:00)
[2023-12-18] MEDS ORDERED: SIME80TA15 PO (08:00)
[2023-12-18] MEDS ORDERED: DOCU100T2 PO (08:00)
[2023-12-18] MEDS ORDERED: GLIP5TAB13 PO (08:00)
[2023-12-18] MEDS ORDERED: CRAN400C PO (08:00)
[2023-12-18] MEDS ORDERED: ACET-868 PO (08:00)
[2023-12-18] MEDS ORDERED: LEVO175T7 PO (08:00)
[2023-12-18] MEDS ORDERED: LINA5TAB PO (08:00)
[2023-12-18] MEDS: DIVALPROEX SODIUM 125 MG CAP.SPRINK PO SCH (08:00)
[2023-12-18] MEDS ORDERED: MELA3TAB41 PO (08:00)
[2023-12-18] MEDS ORDERED: BISA10SU11 RC (08:00)
[2023-12-18] MEDS ORDERED: BUSP5TAB3 PO (08:00)
[2023-12-18] MEDS ORDERED: MAGN400O6 PO (08:00)
[2023-12-18] MEDS: DOCUSATE SODIUM 100 MG CAPSULE PO SCH (08:06)
[2023-12-18] MEDS: CITRIC ACID/SODIUM CITRATE (BICITRA)15 ML UDC PO SCH (08:06)
[2023-12-18] MEDS: AMIODARONE HCL 200 MG TABLET PO SCH (08:06)
[2023-12-18] MEDS: SENNOSIDES/DOCUSATE SODIUM 1 TAB TABLET PO SCH (08:07)
[2023-12-18] MEDS: DIVALPROEX SODIUM 250 MG TABLET.DR PO SCH (08:07)
[2023-12-18] MEDS ORDERED: Medication Not On Formulary EA ([Gemtesa] 75 MG) PO SCH (09:00)
[2023-12-18] MEDS: PANTOPRAZOLE 40 MG VIAL IV SCH (09:06)
[2023-12-18] MEDS: TIMOLOL 0.5% SOLN OPHTH 5 ML BOTTLE RIGHTEYE SCH (09:07)
[2023-12-18 11:24] LABS: THYROID STIMULATING HORMONE 66.91 uIU/mL (0.358-3.74)
[2023-12-18] MEDS: IV D5/0.45 NACL 1,000 ML IV SCH (12:53)
[2023-12-18] MEDS: LORAZEPAM INJ 2 MG/ML VIAL IV PRN (18:59)
[2023-12-18] MEDS: QUETIAPINE FUMARATE 100 MG TABLET PO SCH (22:00)
[2023-12-19] VITALS (25 sets, daily range): BP systolic 92–156; BP diastolic 52–117; TEMP 97–98; O2SAT 98–100
[2023-12-19 04:22] LABS: BASOPHILS # (AUTO) 0.1 K/uL (0.0-0.2); BASOPHILS % (AUTO) 0.5 % (0.0-2.0); EOSINOPHILS # (AUTO) 0.5 K/uL (0.0-0.7); EOSINOPHILS % (AUTO) 4.6 % (0.0-6.0); HEMATOCRIT 33 % (39-51); LYMPHOCYTES # (AUTO) 1.8 K/uL (0.8-4.8); LYMPHOCYTES % (AUTO) 16.9 % (20.0-44.0); MEAN CORPUSCULAR HEMOGLOBIN 31 PG (26.0-33.0); MEAN CORPUSCULAR HGB CONC 34 g/dl (31.0-36.0); MEAN CORPUSCULAR VOLUME 92 fL (80-96); MONOCYTES # (AUTO) 1.1 K/uL (0.1-1.30); MONOCYTES % (AUTO) 10.6 % (2.0-12.0); NEUTROPHILS # (AUTO) 7.1 K/uL (1.8-8.9); NEUTROPHILS % (AUTO) 67.4 % (43.0-81.0); PLATELET COUNT (AUTO) 217 K/uL (150-450); RED BLOOD CELL COUNT(AUTO) 3.52 MIL/uL (4.5-6.0); RED CELL DISTRIBUTION WIDTH 14.7 % (11.5-15.0); WHITE BLOOD COUNT (AUTO) 10.6 K/uL (4.3-11.0)
[2023-12-19 04:34] LABS: PROTHROMBIN TIME 10.6 SECS (9.2-11.1)
[2023-12-19 04:40] LABS: CALCIUM, SERUM 8.9 mg/dL (8.5-10.1); CARBON DIOXIDE 28 mmol/L (21-32); CHLORIDE 104 mmol/L (98-107); CREATININE 1.8 mg/dL (0.6-1.3); GLUCOSE 168 mg/dL (74-106); POTASSIUM 4.6 mmol/L (3.5-5.1); SODIUM SERUM 135 mmol/L (136-145); UREA NITROGEN, BLOOD 47 mg/dL (7-18)
[2023-12-19 11:08] LABS: FOLIC ACID 10.8 ng/mL (>3.0)
[2023-12-19] MEDS: IV D5/0.45 NACL 1,000 ML IV PRN (12:27)
[2023-12-20] VITALS (27 sets, daily range): BP systolic 78–142; BP diastolic 40–88; TEMP 97.6–98.2; O2SAT 96–100
[2023-12-20 06:13] LABS: BASOPHILS # (AUTO) 0.1 K/uL (0.0-0.2); BASOPHILS % (AUTO) 0.8 % (0.0-2.0); EOSINOPHILS # (AUTO) 0.5 K/uL (0.0-0.7); EOSINOPHILS % (AUTO) 5.8 % (0.0-6.0); HEMATOCRIT 31 % (39-51); HEMOGLOBIN 10.5 g/dL (13.5-17.5); LYMPHOCYTES # (AUTO) 1.6 K/uL (0.8-4.8); LYMPHOCYTES % (AUTO) 18.3 % (20.0-44.0); MEAN CORPUSCULAR HEMOGLOBIN 31 PG (26.0-33.0); MEAN CORPUSCULAR HGB CONC 34 g/dl (31.0-36.0); MEAN CORPUSCULAR VOLUME 90 fL (80-96); MONOCYTES % (AUTO) 10.9 % (2.0-12.0); NEUTROPHILS # (AUTO) 5.6 K/uL (1.8-8.9); NEUTROPHILS % (AUTO) 64.2 % (43.0-81.0); PLATELET COUNT (AUTO) 207 K/uL (150-450); RED BLOOD CELL COUNT(AUTO) 3.41 MIL/uL (4.5-6.0); RED CELL DISTRIBUTION WIDTH 14.1 % (11.5-15.0); WHITE BLOOD COUNT (AUTO) 8.7 K/uL (4.3-11.0)
[2023-12-20 06:17] LABS: CALCIUM, SERUM 8.3 mg/dL (8.5-10.1); CARBON DIOXIDE 25 mmol/L (21-32); CHLORIDE 105 mmol/L (98-107); CREATININE 1.6 mg/dL (0.6-1.3); GLUCOSE 188 mg/dL (74-106); POTASSIUM 4.2 mmol/L (3.5-5.1); SODIUM SERUM 137 mmol/L (136-145); UREA NITROGEN, BLOOD 32 mg/dL (7-18)
[2023-12-20 06:36] LABS: INR 1.03 (0.91-1.10); PARTIAL THROMBOPLASTIN TIME 29.1 SEC (24.3-34.3); PROTHROMBIN TIME 10.9 SECS (9.2-11.1)
[2023-12-20] MEDS: PANTOPRAZOLE 40 MG TABLET.DR PO SCH (08:34)
[2023-12-20] MEDS: IV NS 0.9% 500 ML IV ONE (12:00)
[2023-12-20] MEDS: BISACODYL SUPP (10 MG) 10 MG/SUPP.RECT SUPP.RECT RC PRN (14:10)
[2023-12-21] VITALS (7 sets, daily range): BP systolic 82–122; BP diastolic 43–71; TEMP 97.9–98.5; O2SAT 94–97
[2023-12-21 06:38] LABS: INR 1.03 (0.91-1.10); PARTIAL THROMBOPLASTIN TIME 29.5 SEC (24.3-34.3); PROTHROMBIN TIME 10.9 SECS (9.2-11.1)
[2023-12-21 06:42] LABS: BASOPHILS % (AUTO) 0.6 % (0.0-2.0); EOSINOPHILS # (AUTO) 0.5 K/uL (0.0-0.7); EOSINOPHILS % (AUTO) 5.5 % (0.0-6.0); HEMATOCRIT 32 % (39-51); HEMOGLOBIN 10.5 g/dL (13.5-17.5); LYMPHOCYTES # (AUTO) 1.9 K/uL (0.8-4.8); LYMPHOCYTES % (AUTO) 21.7 % (20.0-44.0); MEAN CORPUSCULAR HEMOGLOBIN 30 PG (26.0-33.0); MEAN CORPUSCULAR HGB CONC 33 g/dl (31.0-36.0); MEAN CORPUSCULAR VOLUME 92 fL (80-96); MONOCYTES % (AUTO) 11.7 % (2.0-12.0); NEUTROPHILS # (AUTO) 5.3 K/uL (1.8-8.9); NEUTROPHILS % (AUTO) 60.5 % (43.0-81.0); PLATELET COUNT (AUTO) 221 K/uL (150-450); RED BLOOD CELL COUNT(AUTO) 3.47 MIL/uL (4.5-6.0); RED CELL DISTRIBUTION WIDTH 14.5 % (11.5-15.0); WHITE BLOOD COUNT (AUTO) 8.7 K/uL (4.3-11.0)
[2023-12-21 07:14] LABS: CALCIUM, SERUM 8.8 mg/dL (8.5-10.1); CARBON DIOXIDE 24 mmol/L (21-32); CHLORIDE 106 mmol/L (98-107); CREATININE 1.9 mg/dL (0.6-1.3); GLUCOSE 105 mg/dL (74-106); POTASSIUM 4.5 mmol/L (3.5-5.1); SODIUM SERUM 138 mmol/L (136-145); UREA NITROGEN, BLOOD 32 mg/dL (7-18)
[2023-12-21] MEDS: IV NS 0.9% 500 ML IV STA ×2 (16:26→18:51)
[2023-12-21] MEDS ORDERED: QUETIAPINE FUMARATE 25 MG TABLET PO PRN (16:30)
[2023-12-21] MEDS ORDERED: MAGNESIUM HYDROXIDE 30 ML UDC PO PRN (17:30)
[2023-12-21] MEDS ORDERED: NA PHOS,M-B/NA PHOS,DI-BA 1 EA ENEMA RC PRN (17:30)
[2023-12-21] MEDS: BRIMONIDINE TARTRATE OPHT SOLN 5 ML BOTTLE RIGHTEYE SCH (18:01)
[2023-12-21] MEDS: BRINZOLAMIDE 1 % OPHTH SOLN 10 ML BOTTLE RIGHTEYE SCH (18:01)
[2023-12-21] MEDS ORDERED: QUETIAPINE FUMARATE 100 MG TABLET PO SCH (22:00)
[2023-12-22] VITALS (8 sets, daily range): BP systolic 98–152; BP diastolic 52–99; TEMP 97.3–98.7; O2SAT 96–100
[2023-12-22 07:15] LABS: BASOPHILS % (AUTO) 0.3 % (0.0-2.0); EOSINOPHILS # (AUTO) 0.4 K/uL (0.0-0.7); EOSINOPHILS % (AUTO) 3.6 % (0.0-6.0); HEMATOCRIT 34 % (39-51); HEMOGLOBIN 11.2 g/dL (13.5-17.5); LYMPHOCYTES # (AUTO) 1.6 K/uL (0.8-4.8); MEAN CORPUSCULAR HEMOGLOBIN 30 PG (26.0-33.0); MEAN CORPUSCULAR HGB CONC 33 g/dl (31.0-36.0); MEAN CORPUSCULAR VOLUME 91 fL (80-96); MONOCYTES # (AUTO) 1.3 K/uL (0.1-1.30); MONOCYTES % (AUTO) 11.2 % (2.0-12.0); NEUTROPHILS # (AUTO) 8.3 K/uL (1.8-8.9); NEUTROPHILS % (AUTO) 70.9 % (43.0-81.0); PLATELET COUNT (AUTO) 239 K/uL (150-450); RED BLOOD CELL COUNT(AUTO) 3.76 MIL/uL (4.5-6.0); RED CELL DISTRIBUTION WIDTH 14.4 % (11.5-15.0); WHITE BLOOD COUNT (AUTO) 11.7 K/uL (4.3-11.0)
[2023-12-22 07:48] LABS: CALCIUM, SERUM 8.7 mg/dL (8.5-10.1); CARBON DIOXIDE 25 mmol/L (21-32); CHLORIDE 107 mmol/L (98-107); CREATININE 2.2 mg/dL (0.6-1.3); GLUCOSE 99 mg/dL (74-106); POTASSIUM 4.7 mmol/L (3.5-5.1); SODIUM SERUM 140 mmol/L (136-145); UREA NITROGEN, BLOOD 35 mg/dL (7-18)
[2023-12-22] MEDS: LEVOTHYROXINE SODIUM 50 MCG TABLET PO SCH (08:45)
[2023-12-22] MEDS: DOCUSATE SODIUM 250 MG CAPSULE PO SCH (08:48)
[2023-12-23] VITALS: BP 120/81; TEMP 98.1; O2SAT 97
[2023-12-23 04:00] VITALS: BP 137/68; TEMP 97.8; O2SAT 99
[2023-12-23] MEDS: OLANZAPINE 2.5 MG TABLET PO PRN (04:37)
[2023-12-23 06:55] LABS: BASOPHILS % (AUTO) 0.3 % (0.0-2.0); EOSINOPHILS # (AUTO) 0.5 K/uL (0.0-0.7); EOSINOPHILS % (AUTO) 4.6 % (0.0-6.0); HEMATOCRIT 30 % (39-51); HEMOGLOBIN 10.3 g/dL (13.5-17.5); LYMPHOCYTES # (AUTO) 1.5 K/uL (0.8-4.8); LYMPHOCYTES % (AUTO) 14.8 % (20.0-44.0); MEAN CORPUSCULAR HEMOGLOBIN 31 PG (26.0-33.0); MEAN CORPUSCULAR HGB CONC 35 g/dl (31.0-36.0); MEAN CORPUSCULAR VOLUME 90 fL (80-96); MONOCYTES # (AUTO) 1.2 K/uL (0.1-1.30); MONOCYTES % (AUTO) 11.7 % (2.0-12.0); NEUTROPHILS # (AUTO) 6.7 K/uL (1.8-8.9); NEUTROPHILS % (AUTO) 68.6 % (43.0-81.0); PLATELET COUNT (AUTO) 219 K/uL (150-450); RED BLOOD CELL COUNT(AUTO) 3.28 MIL/uL (4.5-6.0); RED CELL DISTRIBUTION WIDTH 14.3 % (11.5-15.0); WHITE BLOOD COUNT (AUTO) 9.8 K/uL (4.3-11.0)
[2023-12-23 07:39] LABS: CALCIUM, SERUM 8.8 mg/dL (8.5-10.1); CARBON DIOXIDE 24 mmol/L (21-32); CHLORIDE 105 mmol/L (98-107); CREATININE 1.9 mg/dL (0.6-1.3); GLUCOSE 113 mg/dL (74-106); POTASSIUM 4.2 mmol/L (3.5-5.1); SODIUM SERUM 139 mmol/L (136-145); UREA NITROGEN, BLOOD 31 mg/dL (7-18)
[2023-12-23 08:00] VITALS: BP_SYST 100; BP_SYST 176; BP_DIAS 72; BP_DIAS 74; TEMP 97.6; TEMP 97.9; O2SAT 98; O2SAT 99
[2023-12-23 08:01] VITALS: BP 96/72; TEMP 97.5; O2SAT 98
[2023-12-23 12:00] VITALS: BP 112/69; TEMP 97.9; O2SAT 98
[2023-12-23 13:09] LABS: VITAMIN B1 THIAMINE,WB 111.4 nmol/L (66.5-200.0)
[2023-12-23] MEDS: VALPROIC ACID 250 MG/5 ML UDC PO SCH (13:15)
[2023-12-23] MEDS ORDERED: AMIO200T5 PO (15:08)
[2023-12-23] MEDS ORDERED: BLOO-668 IN (15:08)
[2023-12-23] MEDS ORDERED: OLAN2.5T3 PO (15:08)
[2023-12-23] MEDS ORDERED: VALP250C3 PO (15:08)
[2023-12-23] MEDS ORDERED: CITR30SO PO (15:08)
[2023-12-23] MEDS ORDERED: BRIM5DRO11 RIGHTEYE (15:08)
[2023-12-23] MEDS ORDERED: PANT40TA2 PO (15:08)
[2023-12-23] MEDS ORDERED: LEVO50TA8 PO (15:08)
== END 2023-12-23 14:40 | DRG 85 ==
LOC: ER 21:46 → ICU 12-18 00:24 → TELE 12-20 18:45
PROVIDERS: ATTEND Nurse Practitioner Acute Care
DX: S06.5X0A Traumatic subdural hemorrhage without loss of consciousness, initial encounter (principal); G93.41 Metabolic encephalopathy; N17.0 Acute kidney failure with tubular necrosis; F01.54 Vascular dementia, unspecified severity, with anxiety; I13.0 Hypertensive heart and chronic kidney disease with heart failure and stage 1 through stage 4 chronic kidney disease, or unspecified chronic kidney disease; F05 Delirium due to known physiological condition; F01.53 Vascular dementia, unspecified severity, with mood disturbance; G96.08 Other cranial cerebrospinal fluid leak; W18.30XA Fall on same level, unspecified, initial encounter; Y93.9 Activity, unspecified; Y92.129 Unspecified place in nursing home as the place of occurrence of the external cause; N18.9 Chronic kidney disease, unspecified; D64.9 Anemia, unspecified; D72.829 Elevated white blood cell count, unspecified; E03.9 Hypothyroidism, unspecified; E11.22 Type 2 diabetes mellitus with diabetic chronic kidney disease; E78.5 Hyperlipidemia, unspecified; H40.9 Unspecified glaucoma; I48.91 Unspecified atrial fibrillation; I50.9 Heart failure, unspecified; Z66 Do not resuscitate; Z79.01 Long term (current) use of anticoagulants; F41.9 Anxiety disorder, unspecified; N40.0 Benign prostatic hyperplasia without lower urinary tract symptoms; F39 Unspecified mood [affective] disorder; Z73.6 Limitation of activities due to disability; Z79.84 Long term (current) use of oral hypoglycemic drugs; R40.2142 Coma scale, eyes open, spontaneous, at arrival to emergency department; R40.2362 Coma scale, best motor response, obeys commands, at arrival to emergency department; R40.2252 Coma scale, best verbal response, oriented, at arrival to emergency department
CPT/HCPCS: 36415; 70450-TC; 71045-TC; 72125-TC; 80048-TC; 80164-TC; 82607-TC; 82962-TC; 83921; 84425; 84443-TC; 85025-TC; 85730-TC; 92507-TC; 92521; 92526; 92611-TC; 97110-TC; 97530-TC; A4223; A4349; A6253; A6403; G0378; J2060; J2470; J3490; J7030; J7040

== ENCOUNTER 2023-12-23 12:05 | Inpatient (IN) | payer MEDICARE, OTHER ==
[~2023-12-23] VITALS: Ht 165.1 cm; Wt 71.2 kg
[~2023-12-23 12:05] MED LIST changes: +ACET-868 PO; -APIX5TAB PO; +BISA10SU11 RC; +BUSP5TAB3 PO; -CITR15SO PO; +CRAN400C PO; -DIVA125C2 PO; -DIVA250T PO; +DOCU100T2 PO; -GEMTESA PO; +GLIP5TAB13 PO; +LEVO175T7 PO; -LEVO50TA8 PO; +LINA5TAB PO; +MAGN400O6 PO; +MELA3TAB41 PO; +NA P133E RC; -QUET300T2 PO; +SIME80TA15 PO
--- NOTE | 2023-12-23 14:50 | NUR ---
RN NOTE- BROUGHT FROM [facility] FOR ADMISSION GPS / 5150 GD. PT IN W[facility], REPORT RECEIVED BY 3 [place] STAFF . BEGIN ADMISSION PROCESS
--- NOTE | 2023-12-23 14:51 | NUR ---
DATA OPERATIONS DIRECTOR NOTES- 88 Y/O MALR BROUGHT FROM [facility] FOR ADMISSION. S/P FALL SUBDURAL HEMATOMA TREATED MEDICALLY. PT STABLE AND ADMITTED ON 5150 HOLD GD. HX - DEMENTIA, CHF, AFIB, HTN, HLD, DM, CATARACTS, AND LT HIP ORIF. CHEST - CLEAR THROUGHOUT, ABDOMEN - SOFT W POS BOWEL SOUNDS THROUGHOUT. NEEDS FULL ASSIST W ALL CARE. ALERT ORIENTED TO PERSON ONLY. RT ARM SKIN TEAR NOTED W DSG INTACT. ORDERS RECEIVED COMPLIED WITH. MONITOR SAFETY AND BEHAVIOR
[2023-12-23] MEDS ORDERED: VALP250C3 PO (15:08)
[2023-12-23] MEDS ORDERED: LEVO50TA8 PO (15:08)
[2023-12-23] MEDS ORDERED: OLAN2.5T3 PO (15:08)
[2023-12-23] MEDS ORDERED: BRIM5DRO11 RIGHTEYE (15:08)
[2023-12-23] MEDS ORDERED: PANT40TA2 PO (15:08)
[2023-12-23] MEDS ORDERED: CITR30SO PO (15:08)
[2023-12-23] MEDS ORDERED: AMIO200T5 PO (15:08)
[2023-12-23] MEDS ORDERED: BLOO-668 IN (15:08)
--- NOTE | 2023-12-23 15:12 | NUR ---
JOHN Initial Discharge Note: Patient currently resides at [facility] [id number] [place] [phone] ([phone]). JOHN contacted Esthela carballo and she will let this health science writer know if pt is welcomed back or not. JOHN will contact pt's son Micky ([phone]) to discuss treatment/discharge plan. JOHN will work with the MD, family, and treatment team to help coordinate appropriate discharge.
--- NOTE | 2023-12-23 15:12 | NUR ---
JOHN Clinical Note: Pt placed on a 5150 hold for GD. Per hold, pt was agitated and aggressive on the medical floor. Pt from nursing facility [facility]. Patient currently resides at [facility] [address] [place] [address] ([phone]). JOHN contacted Esthela carballo and she will let this jingle writer know if pt is welcomed back or not. JOHN will contact pt's son Micky ([phone]) to discuss treatment/discharge plan.
--- NOTE | 2023-12-23 15:28 | NUR ---
RN-NOTES 3 WIN BROUGHT IN THE 88 YEARS OLD MALE PATIENT VIA WHEEL CHAIR AWAKE,A/O X1 CONFUSED UNABLE TO ANSWER QUESTIONS. DR. GUILLORY ( PSYCHIATRIST) NOTIFIED WITH STANDING ORDERS , LARRY OCHOA WAS NOTIFIED TOO.
[2023-12-23] MEDS ORDERED: MAGNESIUM HYDROXIDE 30 ML UDC PO PRN (15:30)
[2023-12-23] MEDS ORDERED: MAG HYDROX/AL HYDROX/SIMETH 30 ML UDC PO PRN (15:30)
--- NOTE | 2023-12-23 15:53 | NUR ---
Facility Contact: SW spoke with Aida clemente from [facility] [address] [place] [address] ([phone]) who stated that when pt is stable he is welcomed back.
--- NOTE | 2023-12-23 15:54 | NUR ---
JOHN Family Contact: SW contacted pt's son Micky ([phone]) and discussed treatment/discharge plan. He would want pt to go back to [facility] when stable.
[2023-12-23] MEDS: BLOOD SUGAR DIAGNOSTIC 1 EACH STRIP IN ONE (15:56)
--- NOTE | 2023-12-23 15:56 | NUR ---
RN NOTE - ACCU-CHECK BS - 153
[2023-12-23 16:16] VITALS: BP 130/61; TEMP 98.1; O2SAT 99
--- NOTE | 2023-12-23 18:45 | NUR ---
RN-NOTES RECEIVED T.O ORDER FROM LARRY OCHOA OF DEPAKOTE SPRINKLES 500MG P.O ONCE AT 2100 AND DEPAKOTE SPRINKLES 500MG P.O TID. NOTED AND CARRIED OUT.
--- NOTE | 2023-12-23 19:30 | NUR ---
PATIENT IN BED SLEEPING, ON ROOM AIR NO SIGNS OF SOB AND DISTRESS, PATIENT IS AROUSED BY TOUCH TURKS AND CAICOS ISLANDER SPEAKING ONLY, PATIENT IS ALERT TO TIME PLACE AND NAME, SAFETY MEASURES MAINTAINED, WILL CONTINUE TO MONITOR PATIENT AND WILL CONTINUE WITH PLAN OF CARE
[2023-12-23] MEDS: DIVALPROEX SODIUM 125 MG CAP.SPRINK PO ONE (20:28)
--- NOTE | 2023-12-23 23:28 | NUR ---
rn note patient with blood sugar check but with no sliding scale, checked blood sugar elecated right now @161, informed charged nurse, charge nurse informed hospitalist Orlin with new orders of mild sliding scale, orders entered and carried out will continue to monitor patient
[2023-12-23] MEDS ORDERED: DEXTROSE 50%-WATER 50 ML DISP.SYRIN IV PRN (23:30)
[2023-12-23] MEDS: BLOOD SUGAR DIAGNOSTIC 1 EACH STRIP IN SCH (23:36)
[2023-12-23] MEDS: INSULIN REGULAR, HUMAN 100 UNIT/ML 3 ML VIAL SQ PRN (23:38)
--- NOTE | 2023-12-23 23:38 | NUR ---
rn note patient accucheck reading 161, patient supposed to be given insulin, but patient refused firmly explained risk and benefits, did not appear to listen, offered a couple of times patient firmly refused, will continue to monitor patient
[2023-12-24] MEDS ORDERED: BLOOD SUGAR DIAGNOSTIC 1 EACH STRIP IN SCH
[2023-12-24] MEDS: LORAZEPAM 0.5 MG TABLET PO PRN (00:47)
--- NOTE | 2023-12-24 06:39 | NUR ---
RN CLOSING NOTE PATIENT IN BED SLEEPING, ON ROOM AIR NO SIGNS OF SOB AND DISTRESS, DENTURES SET ASIDE ON THE BEDSIDE TABLE, WOUND DRESSING REINFORCED, ALL DUE MEDS GIVEN KEPT PATIENT CLEAN AND DTY Addendum: 12/24/23 at 0647 by ABBY ESPITIA RN ADDENDUM: KEPT PATIEN CLEAN AND DRY SAFETY MEASURES MAINTAINED WILL ENDORSE TO INCOMING NURSE FOR CONTINUITY OF CARE
--- NOTE | 2023-12-24 07:19 | NUR ---
WOUND CARE CONSULT: PT PRESENTS WITH SACRAL SCARRING AND BILATERAL ARM SKIN TEARS,PRESENT ON ADMISSION. DISCUSSED SKIN PROTECTION AND WOUND TREATMENT RECOMMENDATIONS WITH NURSING STAFF. IN AGREEMENT WITH PLAN OF CARE. Addendum: 12/24/23 at 0720 by LEONARDO HANKINS WNDNU Amended: Links added.
[2023-12-24 07:30] VITALS: BP 123/68; TEMP 98.1; O2SAT 98
[2023-12-24] MEDS: LEVOTHYROXINE SODIUM 50 MCG TABLET PO SCH (07:51)
[2023-12-24] MEDS: CITRIC ACID/SODIUM CITRATE (BICITRA)15 ML UDC PO SCH (08:06)
[2023-12-24] MEDS: AMIODARONE HCL 200 MG TABLET PO SCH (08:06)
[2023-12-24] MEDS: DOCUSATE SODIUM 100 MG CAPSULE PO SCH (08:06)
[2023-12-24] MEDS: PANTOPRAZOLE 40 MG TABLET.DR PO SCH (08:06)
[2023-12-24] MEDS: DIVALPROEX SODIUM 125 MG CAP.SPRINK PO SCH (08:07)
[2023-12-24 08:08] LABS: ALANINE AMINOTRANSFERASE 11 U/L (12-78); ALBUMIN 2.6 g/dL (3.4-5.0); ALKALINE PHOSPHATASE 93 U/L (46-116); ASPARTATE AMINOTRANSFERASE 13 U/L (15-37); BILIRUBIN,TOTAL 0.3 mg/dL (0.2-1.0); CALCIUM, SERUM 8.8 mg/dL (8.5-10.1); CARBON DIOXIDE 26 mmol/L (21-32); CHLORIDE 103 mmol/L (98-107); CREATININE 2.2 mg/dL (0.6-1.3); GLUCOSE 113 mg/dL (74-106); POTASSIUM 4.3 mmol/L (3.5-5.1); SODIUM SERUM 138 mmol/L (136-145); TOTAL PROTEIN, SERUM 6.4 g/dL (6.4-8.2); UREA NITROGEN, BLOOD 27 mg/dL (7-18)
[2023-12-24 08:21] LABS: CHOLESTEROL 132 mg/dL (<200); HDL CHOLESTEROL 36 mg/dL (40-60); LDL 76 mg/dL (0-99); TRIGLYCERIDES 137 mg/dL (30-150)
[2023-12-24] MEDS: BRINZOLAMIDE 1 % OPHTH SOLN 10 ML BOTTLE RIGHTEYE SCH (08:55)
[2023-12-24] MEDS: TIMOLOL 0.5% SOLN OPHTH 5 ML BOTTLE RIGHTEYE SCH (08:55)
[2023-12-24] MEDS: BRIMONIDINE TARTRATE OPHT SOLN 5 ML BOTTLE RIGHTEYE SCH (08:55)
[2023-12-24] MEDS ORDERED: VALPROIC ACID 250 MG/5 ML UDC PO SCH (09:00)
--- NOTE | 2023-12-24 09:00 | NUR ---
RN NOTES - WOUND CARE PROVIDED ORDERED, PT COMPLIANT WITH ALL MORNING MEDS.
--- NOTE | 2023-12-24 10:27 | NUR ---
RN NOTES - PT IS WITH THE PATIENT.
--- NOTE | 2023-12-24 13:53 | NUR ---
RN NOTES - SPOKE TO ANEL, SON, GAVE AN UPDATE OF THE BEHAVIOR OF THE PATIENT TODAY. WANTED TO GET AN UPDATE REGARDING THE STATUS OF THE 5150 HOLD - INFORMED [employer] FLATBED DRIVER - WILL INITIATE CALL.
[2023-12-24 15:30] VITALS: BP 126/84; TEMP 98.1; O2SAT 97
[2023-12-24 16:12] LABS: CREATININE 2.1 mg/dL (0.6-1.3)
[2023-12-24 20:00] VITALS: BP 96/61; TEMP 98.3; O2SAT 100
--- NOTE | 2023-12-24 20:09 | NUR ---
GPS GUNNER'S MATE M NOTE RECEIVED PATIENT AWAKE AND IN HIS ROOM, SITTING IN ARANZA CHAIR, NO S/S OR COMPLAINTS OF PAIN AT THIS TIME. PATIENT IS DISPLAYING NO S/S OF APPARENT DISTRESS AT THIS TIME. PATIENT BREATHING IS UNLABORED WITH EQUAL RISE AND FALL OF THE CHEST. PATIENT IS ALERT AND ORIENTED X2 ON ROOM AIR WITH A SPO2 98%. PATIENT DENIES SUICIDAL AND HOMICIDAL IDEATIONS AT THIS TIME. PATIENT HAS NO NEEDS AT THIS TIME. PATIENT EDUCATED ON THE USE OF THE CALL RHODES. PATIENT BED SIDE RAILS UP X 2 FOR SAFETY. PATIENT BED IS LOCKED, LOW, AND HAS BED ALARM ON. PLAN OF CARE ON GOING.
--- NOTE | 2023-12-24 20:22 | NUR ---
GPS VP CLINICAL NOTE PT WITH EPISODE OF ANXIETY/ AGITATION, YELLING/ SCREAMING, UNABLE TO CALM, PT REPOSITIONED, KEPT CLEAN AND DRY. PRN ATIVAN ORDERED FOR ANXIETY/AGITATION GIVEN. WILL CONT WITH PLAN OF CARE.
--- NOTE | 2023-12-24 21:22 | NUR ---
GPS RN NEW GRAD NOTE 1 HR POST ATIVAN, PT STILL WITH EPISODE OF AGITATION/ ANXIETY, DESPITE INTERVENTIONS,REPOSITIONING, DIAPER CHANGE, FLUIDS , SNACK GIVEN. WILL CONT WITH PLAN OF CARE. BS CHECKED NOTED RESULT 178, REGULAR INSULIN PER SLIDING SCALE GIVEN 3 UNITS.
[2023-12-24] MEDS: TEMAZEPAM 7.5 MG CAPSULE PO PRN (22:34)
--- NOTE | 2023-12-24 22:38 | NUR ---
GPS ADVERTISING VICE PRESIDENT NOTE PT C/O INSOMNIA, DIFFICULTY SLEEPING, PRN RESTORIL 7.5 MG GIVEN ORDERED. PT BREATHING EVEN, UNLABORED, HR 70 RR 20 BP 100/60.
--- NOTE | 2023-12-24 23:37 | NUR ---
GPS SANITATION TRUCK CLEANER NOTE 1 HR POST RESTORIL, PT REMAINS AWAKE , WITH EPISODES OF YELLING , STAFF ASSISTED PT IN REPOSITIONING, AND DIAPER CHANGE . WILL CONT WITH PLAN OF CARE.
--- NOTE | 2023-12-25 02:05 | NUR ---
GPS UNIVERSITY EXTENSION SPECIALIST NOTE PT NOTED SLEEPING, BREATHING EVEN, UNLABORED. SAFETY AND COMFORT NOTED, WILL CONT WITH PLAN OF CARE.
--- NOTE | 2023-12-25 05:54 | NUR ---
GPS COAT ROOM ATTENDANT CLOSING NOTE PATIENT IN BED SLEEPING, ON ROOM AIR NO SIGNS OF SOB AND DISTRESS, DENTURES SET ASIDE ON THE BEDSIDE TABLE, WOUND TX/ DRESSING DONE, ALL DUE MEDS GIVEN AND TOLERATED. SAFETY MEASURES NOTED, BED SR'S UP, IN LOCK AND LOWEST POSITION, BED ALARM ON.
[2023-12-25 08:00] VITALS: BP 138/67; TEMP 97.7; O2SAT 97
--- NOTE | 2023-12-25 13:10 | NUR ---
Loren ROWLEY ordered to D/C Depakene syrup.
[2023-12-25 16:09] VITALS: BP 136/61; TEMP 98.6; O2SAT 99
--- NOTE | 2023-12-25 18:40 | NUR ---
RN CLOSING NOTES PATIENT IS ON ARANZA-CHAIR, ASLEEP BUT EASY TO AWAKEN. PATIENT IS ALERT AND ORIENTED X3. PATIENT DENIES PAIN, DENIES SI/HI AT THIS TIME. NEEDS ANTICIPATED AND ATTENDED. NO BEHAVIORAL ESCALATION EPISODES WITHIN SHIFT. DUE MEDS GIVEN. SAFETY MEASURES IMPLEMENTED. BED LOCKED TO THE LOWEST POSITION, SIDE RAILS UP X2. WILL ENDORSE TO THE NEXT NURSE ON DUTY FOR MUMTAZ.
--- NOTE | 2023-12-25 19:30 | NUR ---
GPS RN NOTES RECEIVED OUTSIDE HIS ROOM,ON ARANZA CHAIR,SLEEPING,AROUSABLE TO VERBAL STIMULI,BREATHING NON LABORED,DNR/DNI STATUS.LEGALLY BLIND,MED COMPLIANT.NOTED SKIN TEAR ON BOTH ARMS,COVERED WITH DRESSING,INTACT AND DRY.WILL CONTINUE TO MONITOR BEHAVIOR
[2023-12-25 20:00] VITALS: BP 137/66; TEMP 97.5; O2SAT 99
--- NOTE | 2023-12-25 20:26 | NUR ---
GPS RN NOTES ACCU-CHECK BLOOD SUGAR CHECK 156MG/DL,COVERED WITH HUMULIN R 2 UNITS GIVEN SQ ON LEFT DELTOID PER SLIDING SCALE. SNACKS PROVIDED AT BEDSIDE.
[2023-12-25] MEDS: MUPIROCIN OINT 2% 22 GM TUBE NS SCH (20:36)
--- NOTE | 2023-12-25 23:07 | NUR ---
GPS RN NOTES AWAKE,TALKING TO SELF.RESTORIL 7.5MG PO GIVEN ORDERED FOR INSOMNIA.
--- NOTE | 2023-12-26 06:29 | NUR ---
GPS RN NOTES MORNING CARE DONE.DRESSING CHANGE DONE ON BOTH ARMS SKIN TEAR.DNR/DNI STATUS.
--- NOTE | 2023-12-26 07:30 | NUR ---
RN NOTES PT IN BED, ASLEEP, EASY TO AROUSE, NO SIGN OF PAIN OR DISTRESS, BLOOD SUGAR CHECKED, NO S/S OF HYPO OR HYPERGLYCEMIA, KEPT WARM AND COMFORTABLE IN BED.
[2023-12-26 07:56] VITALS: BP 129/62; TEMP 97.4; O2SAT 99
[2023-12-26 08:00] VITALS: BP 129/62; TEMP 97.4; O2SAT 99
[2023-12-26 15:34] VITALS: BP 103/69; TEMP 98; O2SAT 100
--- NOTE | 2023-12-26 18:42 | NUR ---
RN NOTES PT RESTING IN HIS GERICHAIR, EASILY AROUSABLE BY VERBAL STIMULI, NO SIGN OF PAIN OR DISTRESS, ASSISTED WITH DINNER, COMPLIANT WITH MEDICATIONS AND INTERVENTIONS.
--- NOTE | 2023-12-26 20:10 | NUR ---
Received patient in nadir chair in his room, mumbling and talking to himself but not agitated. safety measure maintains. Vital signs stable. Breathing unlabored. Will continue to monitor.
[2023-12-26 20:31] VITALS: BP 128/60; TEMP 98.3; O2SAT 98
--- NOTE | 2023-12-26 23:10 | NUR ---
Patient still awake, PRN Restoril 7.5 mg given via PO.. Quiet environment provided.
--- NOTE | 2023-12-27 00:10 | NUR ---
S/P Restoril after an hour ineffective, patient still awake at this time. Will continue to provide quiet environment and assist every needs.
[2023-12-27] MEDS: ACETAMINOPHEN 325 MG TABLET PO PRN (04:37)
--- NOTE | 2023-12-27 04:40 | NUR ---
Patient awake and appears to be in discomfort/pain 3/10 generalized. PRN Tylenol 650 mg give PO. Perineal care rendered. Kept patient dry and comfortable. Will monitor.
--- NOTE | 2023-12-27 05:52 | NUR ---
Tylenol effective, patient calm and appears comfortable.
--- NOTE | 2023-12-27 06:27 | NUR ---
SLEEPING CALMLY ON BED. ALL NEEDS ATTENDED AND MET. REMAINS STABLE AT THIS TIME. WILL ENDORSE TO ONCOMING NURSE.
[2023-12-27 08:22] LABS: ALANINE AMINOTRANSFERASE 12 U/L (12-78); ALKALINE PHOSPHATASE 90 U/L (46-116); ASPARTATE AMINOTRANSFERASE 20 U/L (15-37); BILIRUBIN,TOTAL 0.5 mg/dL (0.2-1.0); CALCIUM, SERUM 9.9 mg/dL (8.5-10.1); CARBON DIOXIDE 24 mmol/L (21-32); CHLORIDE 101 mmol/L (98-107); GLUCOSE 115 mg/dL (74-106); MAGNESIUM 2.4 mg/dL (1.8-2.4); PHOSPHORUS 3.8 mg/dL (2.5-4.9); POTASSIUM 5.3 mmol/L (3.5-5.1); SODIUM SERUM 136 mmol/L (136-145); TOTAL PROTEIN, SERUM 7.3 g/dL (6.4-8.2); UREA NITROGEN, BLOOD 44 mg/dL (7-18)
[2023-12-27 08:54] LABS: BASOPHILS # (AUTO) 0.1 K/uL (0.0-0.2); BASOPHILS % (AUTO) 0.6 % (0.0-2.0); EOSINOPHILS # (AUTO) 0.6 K/uL (0.0-0.7); EOSINOPHILS % (AUTO) 4.7 % (0.0-6.0); HEMATOCRIT 36 % (39-51); HEMOGLOBIN 11.8 g/dL (13.5-17.5); LYMPHOCYTES % (AUTO) 15.6 % (20.0-44.0); MEAN CORPUSCULAR HEMOGLOBIN 30 PG (26.0-33.0); MEAN CORPUSCULAR HGB CONC 32 g/dl (31.0-36.0); MEAN CORPUSCULAR VOLUME 94 fL (80-96); MONOCYTES # (AUTO) 0.8 K/uL (0.1-1.30); MONOCYTES % (AUTO) 6.6 % (2.0-12.0); NEUTROPHILS # (AUTO) 9.3 K/uL (1.8-8.9); NEUTROPHILS % (AUTO) 72.5 % (43.0-81.0); PLATELET COUNT (AUTO) 256 K/uL (150-450); RED BLOOD CELL COUNT(AUTO) 3.88 MIL/uL (4.5-6.0); RED CELL DISTRIBUTION WIDTH 14.5 % (11.5-15.0); WHITE BLOOD COUNT (AUTO) 12.8 K/uL (4.3-11.0)
[2023-12-27 09:01] VITALS: BP 92/65; TEMP 97.3; O2SAT 95
[2023-12-27] MEDS: SODIUM POLYSTYRENE SULFONATE 15 G/60 ML BOTTLE PO ONE (09:41)
[2023-12-27 15:36] LABS: CALCIUM, SERUM 9.7 mg/dL (8.5-10.1); CARBON DIOXIDE 26 mmol/L (21-32); CHLORIDE 103 mmol/L (98-107); CREATININE 2.2 mg/dL (0.6-1.3); GLUCOSE 135 mg/dL (74-106); POTASSIUM 4.6 mmol/L (3.5-5.1); SODIUM SERUM 140 mmol/L (136-145); UREA NITROGEN, BLOOD 47 mg/dL (7-18)
[2023-12-27 17:17] VITALS: BP 94/52; TEMP 97.8; O2SAT 98
[2023-12-27 20:05] VITALS: BP 124/67; TEMP 97.9; O2SAT 98
[2023-12-28 07:30] LABS: BASOPHILS % (AUTO) 0.4 % (0.0-2.0); EOSINOPHILS # (AUTO) 0.4 K/uL (0.0-0.7); EOSINOPHILS % (AUTO) 4.6 % (0.0-6.0); HEMATOCRIT 32 % (39-51); HEMOGLOBIN 10.6 g/dL (13.5-17.5); LYMPHOCYTES # (AUTO) 1.9 K/uL (0.8-4.8); LYMPHOCYTES % (AUTO) 20.2 % (20.0-44.0); MEAN CORPUSCULAR HEMOGLOBIN 31 PG (26.0-33.0); MEAN CORPUSCULAR HGB CONC 33 g/dl (31.0-36.0); MEAN CORPUSCULAR VOLUME 92 fL (80-96); MONOCYTES # (AUTO) 0.8 K/uL (0.1-1.30); MONOCYTES % (AUTO) 9.1 % (2.0-12.0); NEUTROPHILS # (AUTO) 6.1 K/uL (1.8-8.9); NEUTROPHILS % (AUTO) 65.7 % (43.0-81.0); PLATELET COUNT (AUTO) 227 K/uL (150-450); RED BLOOD CELL COUNT(AUTO) 3.44 MIL/uL (4.5-6.0); RED CELL DISTRIBUTION WIDTH 14.3 % (11.5-15.0); WHITE BLOOD COUNT (AUTO) 9.3 K/uL (4.3-11.0)
[2023-12-28 07:48] LABS: ALANINE AMINOTRANSFERASE 14 U/L (12-78); ALBUMIN 2.8 g/dL (3.4-5.0); ALKALINE PHOSPHATASE 71 U/L (46-116); ASPARTATE AMINOTRANSFERASE 14 U/L (15-37); BILIRUBIN,TOTAL 0.3 mg/dL (0.2-1.0); CALCIUM, SERUM 8.9 mg/dL (8.5-10.1); CARBON DIOXIDE 28 mmol/L (21-32); CHLORIDE 106 mmol/L (98-107); CREATININE 2.1 mg/dL (0.6-1.3); GLUCOSE 99 mg/dL (74-106); MAGNESIUM 2.2 mg/dL (1.8-2.4); PHOSPHORUS 3.7 mg/dL (2.5-4.9); SODIUM SERUM 142 mmol/L (136-145); TOTAL PROTEIN, SERUM 5.9 g/dL (6.4-8.2); UREA NITROGEN, BLOOD 46 mg/dL (7-18)
[2023-12-28 08:00] VITALS: BP 115/59; TEMP 97.8; O2SAT 94
--- NOTE | 2023-12-28 08:00 | NUR ---
STRAPPER OPERATOR NOTE PATIENT WAS COMPLIANT WITH CRUSHED MEDS IN THE MORNING BUT WHEN THE STAFF ATTEMPTED TO ADMINISTER THE EYE DROPS, THE PATIENT SCREAMED, SLAPPED, AND ATTEMPTED TO PUNCH AND KICK THE STAFF. THE NURSE ATTEMPTED MULTIPLE TIMES AND THE PATIENT STILL REFUSED AND WAS AGGRESSIVE TOWARDS STAFF. WILL ENDORSE TO NEXT SHIFT.
--- NOTE | 2023-12-28 12:19 | NUR ---
RN-CO: Patient needs maximum assistance with ADL. HE needs to be fed. He is blind, confused, and disorganized. He is responding to internal stimuli. At times patient yells and screams and won't answer if being asked why he is yelling. Patient is disheveled and unkempt, unmotivated to cooperate when staff is rendering care. Plan of care on going.
--- NOTE | 2023-12-28 14:30 | NUR ---
RN-CO:Patient refused to attend [facility] , it was upheld for GD.
[2023-12-28 16:10] VITALS: BP 123/71; TEMP 98.2; O2SAT 96
--- NOTE | 2023-12-28 19:40 | NUR ---
RN NOTE PT WITH EPISODE OF ANXIETY/ AGITATION, YELLING/ SCREAMING, UNABLE TO CALM, PT REPOSITIONED, KEPT CLEAN AND DRY. PRN ATIVAN ORDERED FOR ANXIETY/AGITATION GIVEN. WILL CONT WITH PLAN OF CARE.
[2023-12-28 20:53] VITALS: BP 122/81; TEMP 98.2; O2SAT 98
--- NOTE | 2023-12-28 22:50 | NUR ---
RN NOTE:- PT C/O INSOMNIA, DIFFICULTY SLEEPING, PRN RESTORIL 7.5 MG GIVEN ORDERED. WILL CONTINUE TO MONITOR.
[2023-12-29 07:58] LABS: CALCIUM, SERUM 8.6 mg/dL (8.5-10.1); CARBON DIOXIDE 31 mmol/L (21-32); CHLORIDE 107 mmol/L (98-107); CREATININE 1.9 mg/dL (0.6-1.3); GLUCOSE 100 mg/dL (74-106); SODIUM SERUM 142 mmol/L (136-145); UREA NITROGEN, BLOOD 41 mg/dL (7-18)
[2023-12-29 08:00] VITALS: BP 104/76; TEMP 97.8; O2SAT 96
[2023-12-29 09:22] LABS: VALPROIC ACID 78 ug/mL (50-100)
--- NOTE | 2023-12-29 09:49 | NUR ---
GIVEN ATIVAN FOR AGITATION.
[2023-12-29 16:00] VITALS: BP 136/68; TEMP 97.8; O2SAT 100
--- NOTE | 2023-12-29 16:14 | NUR ---
very groggy in afternoon,but still able to take meds.
[2023-12-29 20:24] VITALS: BP 115/64; TEMP 98.4; O2SAT 97
--- NOTE | 2023-12-29 22:37 | NUR ---
GPS SCENERY BUILDER NOTE PT C/O DIFFICULTY FALLING ASLEEP ADMINISTERED RESTORIL 7.5 MG ORDERED WILL MONITOR FOR EFFECTIVENESS.
--- NOTE | 2023-12-29 23:37 | NUR ---
GPS HOTEL FRONT OFFICE MANAGER NOTE 1 HR POST DOSE OF RESTORIL PT IS CALM AND RESTING AT THIS TIME. PT ON ROOM AIR BREATHING NON LABORED EQUAL RISE AND FALL OF CHEST NOTED. WILL CONTINUE TO MONITOR Q 15 MIN ROUNDS TO MAINTAIN SAFETY.
--- NOTE | 2023-12-30 07:08 | NUR ---
GPS RN OPENING NOTES Patient lying in bed with HOB elevated. Asleep. Alert and oriented x 1. No SOB or respiratory distress noted. No acute distress noted. No behavior episodes noted at this time. No increased agitation noted at this time. Patient is calm and comfortable in bed. Breathing even and unlabored. Denies chest pain at this time. No SI/HI/AVH noted. On Bactroban fo MRSA nares. On FSBS with insulin coverage per sliding scale. No s/s of hypoglycemia/hyperglycemia noted at this time. Safety precaution maintained. Bed locked, in low position. Bilateral 1/2 siderails up. Call light within reach. Will continue plan of care
[2023-12-30 08:00] VITALS: BP 119/77; TEMP 97.6; O2SAT 97
[2023-12-30 12:46] LABS: CARBON DIOXIDE 27 mmol/L (21-32); CHLORIDE 106 mmol/L (98-107); GLUCOSE 150 mg/dL (74-106); POTASSIUM 4.9 mmol/L (3.5-5.1); SODIUM SERUM 142 mmol/L (136-145); UREA NITROGEN, BLOOD 40 mg/dL (7-18)
[2023-12-30 12:51] LABS: ALANINE AMINOTRANSFERASE 22 U/L (12-78); ALBUMIN 3.1 g/dL (3.4-5.0); ALKALINE PHOSPHATASE 74 U/L (46-116); ASPARTATE AMINOTRANSFERASE 27 U/L (15-37); BILIRUBIN,TOTAL 0.4 mg/dL (0.2-1.0); TOTAL PROTEIN, SERUM 6.5 g/dL (6.4-8.2)
[2023-12-30 16:00] VITALS: BP 91/59; TEMP 97.8; O2SAT 99
--- NOTE | 2023-12-30 19:12 | NUR ---
GPS RN CLOSING NOTES Patient up in gerichair in the hallway along with other patients. No SOB or respiratory distress noted. No acute distress noted. Patient is calm and comfortable. No behavior episodes noted at this time. No increased agitation noted at this time. Breathing even and unlabored. Denies chest pain at this time. No SI/HI/AVH noted. On Bactroban fo MRSA nares. On FSBS with insulin coverage per sliding scale. No s/s of hypoglycemia/hyperglycemia noted at this time. Insulin given as ordered. Safety precaution maintained. Bed locked, in low position. Bilateral 1/2 siderails up. Call light within reach. Endorsed to ALEXI Espino for continuity of care.
[2023-12-30 20:00] VITALS: BP 122/61; TEMP 97.7; O2SAT 100
--- NOTE | 2023-12-31 07:16 | NUR ---
ms rn received on bed, sleeping, not in any form of distress, respirations even and unlabored,no sob noted,blood sugar 119 - no coverage given, will monitor patient.
[2023-12-31 08:13] LABS: ALANINE AMINOTRANSFERASE 22 U/L (12-78); ALBUMIN 3.1 g/dL (3.4-5.0); ALKALINE PHOSPHATASE 62 U/L (46-116); ASPARTATE AMINOTRANSFERASE 36 U/L (15-37); BILIRUBIN,TOTAL 0.4 mg/dL (0.2-1.0); CALCIUM, SERUM 8.6 mg/dL (8.5-10.1); CARBON DIOXIDE 29 mmol/L (21-32); CHLORIDE 108 mmol/L (98-107); GLUCOSE 97 mg/dL (74-106); POTASSIUM 4.1 mmol/L (3.5-5.1); SODIUM SERUM 143 mmol/L (136-145); TOTAL PROTEIN, SERUM 6.1 g/dL (6.4-8.2); UREA NITROGEN, BLOOD 43 mg/dL (7-18)
[2023-12-31 08:32] VITALS: BP 119/85; TEMP 97.6; O2SAT 97
--- NOTE | 2023-12-31 12:30 | NUR ---
ms rn blood sugar 102-no coverage given, no s/s of hypoglycemia noted, patient still sleeping at this time,refusing meds.
[2023-12-31 16:25] VITALS: BP 110/61; TEMP 97.8; O2SAT 99
--- NOTE | 2023-12-31 17:45 | NUR ---
ms rn patient on nadir chair, begins to get anxious, blood sugar - 166, coverage not given, patient note eating well during dinner.on nadir chair,all needs attended.
--- NOTE | 2023-12-31 19:20 | NUR ---
RN NOTES PATIENT IN GERICHAIR. A/O X 1-2, ABLE TO MAKE NEEDS KNOWN. STABLE ON ROOM AIR. NO S/SX OF ANY ACUTE DISTRESS AT THIS TIME. SAFETY MEASURES IN PLACE. PLAN OF CARE ONGOING.
[2023-12-31 20:00] VITALS: BP 127/98; TEMP 97.3; O2SAT 97
--- NOTE | 2023-12-31 23:25 | NUR ---
RN NOTES- ACCUCHECK DONE. BS LEVEL IS 131. REGULAR INSULIN NOT GIVEN PATIENT DOES NOT WANT TO EAT NOR DRINK. NO S/SX OF ANY ACUTE DISTRESS AT THIS TIME. PLAN OF CARE ONGOING.
--- NOTE | 2023-12-31 23:45 | NUR ---
RN NOTES- PATIENT IS AGITATED, YELLING AND MAKING SOUNDS. ATIVAN 0.5MG GIVEN PRN. PLAN OF CARE ONGOING.
--- NOTE | 2024-01-01 06:37 | NUR ---
RN NOTES- ACCUCHECK DONE. BS LEVEL IS 105, NO COVERAGE. NO S/SX OF ANY ACUTE DISTRESS AT THIS TIME. PLAN OF CARE ONGOING.
--- NOTE | 2024-01-01 06:38 | NUR ---
RN CLOSING NOTES PATIENT SITTING ON THE GERICHAIR. A/O X 1-2, ABLE TO MAKE NEEDS KNOWN. STABLE ON ROOM AIR. NO S/SX OF ANY ACUTE DISTRESS AT THIS TIME. PATIENT TOOK HIS CRUSHED MEDICATION WITH APPLE JUICE. SAFETY MEASURES MAINTAINED DURING SHIFT. WILL ENDORSE TO THE NEXT NURSE ON DUTY.
[2024-01-01 07:37] LABS: CALCIUM, SERUM 8.9 mg/dL (8.5-10.1); CARBON DIOXIDE 29 mmol/L (21-32); CHLORIDE 104 mmol/L (98-107); GLUCOSE 110 mg/dL (74-106); POTASSIUM 4.3 mmol/L (3.5-5.1); SODIUM SERUM 140 mmol/L (136-145); UREA NITROGEN, BLOOD 45 mg/dL (7-18)
[2024-01-01 07:43] LABS: ALANINE AMINOTRANSFERASE 28 U/L (12-78); ALKALINE PHOSPHATASE 72 U/L (46-116); ASPARTATE AMINOTRANSFERASE 37 U/L (15-37); BILIRUBIN,TOTAL 0.5 mg/dL (0.2-1.0); TOTAL PROTEIN, SERUM 6.4 g/dL (6.4-8.2)
[2024-01-01 08:00] VITALS: BP 97/50; TEMP 98; O2SAT 98
--- NOTE | 2024-01-01 09:11 | NUR ---
EARLY DISCHARGE ENTRY Thursday01/02/2024: Patient will be discharged to [facility] [address] [place] [address] ([phone]). Please arrange ambulance transportation at 1PM. Spoke with Aida, Admin Coordinator at the facility who states they are ready to accept the patient today. Patients son Micky ([phone]) is aware and agreeable. Patient is alert and oriented x1. Patient denies any suicidal or homicidal ideation. Patient will follow-up at the facility with Dr. Truong (Psychiatrist) [address] [place] [address] ([phone]) and (Information Clerk Cashier) Dr. Alford [address] [facility] [address], [place] [address]; ([phone]).
[2024-01-01 16:00] VITALS: BP 100/60; TEMP 98; O2SAT 100
[2024-01-01 20:22] VITALS: BP 159/68; TEMP 97.9; O2SAT 99
[2024-01-01 21:00] VITALS: BP 132/75; TEMP 98.7; O2SAT 97
--- NOTE | 2024-01-01 21:30 | NUR ---
RN NOTES- ACCUCHECK DONE. BS LEVEL IS 111, NO COVERAGE. NO S/SX OF ANY ACUTE DISTRESS AT THIS TIME. PLAN OF CARE ONGOING.
--- NOTE | 2024-01-02 00:11 | NUR ---
GPS RN NOTE PATIENT IS UNABLE TO SLEEP. RESTORIL 7.5MG PO GIVEN. WILL CONTINUE TO REASSESS.
[2024-01-02 06:58] LABS: ALANINE AMINOTRANSFERASE 31 U/L (12-78); ALBUMIN 3.4 g/dL (3.4-5.0); ALKALINE PHOSPHATASE 80 U/L (46-116); ASPARTATE AMINOTRANSFERASE 35 U/L (15-37); BILIRUBIN,TOTAL 0.6 mg/dL (0.2-1.0); CALCIUM, SERUM 9.3 mg/dL (8.5-10.1); CARBON DIOXIDE 27 mmol/L (21-32); CHLORIDE 100 mmol/L (98-107); CREATININE 1.9 mg/dL (0.6-1.3); GLUCOSE 109 mg/dL (74-106); POTASSIUM 4.6 mmol/L (3.5-5.1); SODIUM SERUM 135 mmol/L (136-145); TOTAL PROTEIN, SERUM 7.1 g/dL (6.4-8.2); UREA NITROGEN, BLOOD 42 mg/dL (7-18)
--- NOTE | 2024-01-02 06:59 | NUR ---
GPS RN NOTE PATIENT IN BED ASLEEP, EASILY AROUSABLE. NO S/SX OF ACUTE DISTRESS NOTED. PATIENT SLEPT 4HRS. WILL ENDORSE TO ONCOMING SHIFT FOR CONTINUITY OF CARE.
--- NOTE | 2024-01-02 07:00 | NUR ---
CLINCHING MACHINE OPERATOR OPENING NOTE PATIENT IS SLEEPING SITTING ON ARANZA CHAIR WITH SAFETY MEASURES IN PLACE, AT PRESENT. NO S/S OF DISTRESS NOTED. WILL CONTINUE TO MONITOR Q15 MIN ROUNDING FOR SAFETY.
[2024-01-02 08:09] VITALS: BP 151/69
--- NOTE | 2024-01-02 08:43 | NUR ---
Spoke to Lisa TRUONG solar panel installation supervisor in the facility and said they are taking pt. today.
--- NOTE | 2024-01-02 09:36 | NUR ---
Dr. Truong gave an order to D/C hold and D/C to [place] and to follow up with psych and medical doctors. Dr. Truong ordered to continue same psych meds including prn. Son Micky at [phone] made aware of the discharge.
--- NOTE | 2024-01-02 10:29 | NUR ---
Dr. Canas made aware of the discharge and reconciled the meds to continue in the facility.
--- NOTE | 2024-01-02 10:49 | NUR ---
Report given to Lisa TRUONG over the facility.
--- NOTE | 2024-01-02 15:36 | NUR ---
BUSINESS DEAN DISCHARGE NOTE PATIENT IS GOING TO [facility] VIA AMBULANCE. REPORT GIVEN TO TWO UNION ORGANISER. B/P=106/65 HR=72 RESP=18 02 SAT IN ROOM YHS=134% GLUCOSE LEVEL=99. PATIENT IS AWAKE, ORIENTED X1, CONFUSED SWAZI SPEAKING, PATIENT IS CALM AND COOPERATIVE DURING TRANSFER FROM BED TO [facility]. DENIES PAIN, DENIES ANY SUICIDAL OR HOMICIDAL IDEATION, NO S/S OF DISTRESS NOTED. PATIENT WILL FOLLOW UP AT THE FACILITY WITH DR. GUILLORY (PSYCHIATRIST) AND ALSO WILL FOLLOW UP WITH DR. HEWITT (UTILITY ASSEMBLER). PATIENT UNABLE TO SIGN DISCHARGE DOCUMENTS AND ALSO BELONGINGS FORM, DUE TO CONFUSION, TWO NURSED SIGNED DISCHARGE PAPER WORK. PATIENT HAS UPPER AND LOWER DENTURES IN PLACE, PRIOR DISCHARGE. LEFT AND RIGHT ARMS WOUNDS CARE PERFORMED PRIOR DISCHARGE AND ALSO PICTURES TAKEN PER HOSPITAL PROTOCOL. LUBNA RN (CHARGE NURSE) AWARE OF PATIENT DISCHARGE AND HE ALSO GAVE REPORT TO LIZZY TRUONG AT THE FACILITY.
== END 2024-01-02 15:36 | DRG 885 ==
LOC: GPS 12:05
PROVIDERS: ADMIT Nurse Practitioner Psychiatric/Mental Health; ATTEND Internal Medicine
DX: F39 Unspecified mood [affective] disorder (principal); F01.518 Vascular dementia, unspecified severity, with other behavioral disturbance; N18.9 Chronic kidney disease, unspecified; N17.9 Acute kidney failure, unspecified; G93.41 Metabolic encephalopathy; I62.03 Nontraumatic chronic subdural hemorrhage; I13.0 Hypertensive heart and chronic kidney disease with heart failure and stage 1 through stage 4 chronic kidney disease, or unspecified chronic kidney disease; F01.511 Vascular dementia, unspecified severity, with agitation; F01.52 Vascular dementia, unspecified severity, with psychotic disturbance; F01.53 Vascular dementia, unspecified severity, with mood disturbance; F29 Unspecified psychosis not due to a substance or known physiological condition; Z66 Do not resuscitate; I50.9 Heart failure, unspecified; Z20.822 Contact with and (suspected) exposure to COVID-19; Z73.6 Limitation of activities due to disability; E11.22 Type 2 diabetes mellitus with diabetic chronic kidney disease; I48.91 Unspecified atrial fibrillation; E03.9 Hypothyroidism, unspecified; E78.5 Hyperlipidemia, unspecified; N40.0 Benign prostatic hyperplasia without lower urinary tract symptoms; W19.XXXA Unspecified fall, initial encounter; Y92.129 Unspecified place in nursing home as the place of occurrence of the external cause; D72.829 Elevated white blood cell count, unspecified; Z91.81 History of falling
CPT/HCPCS: 36415; 80048-TC; 80053-TC; 80061-TC; 80164-TC; 82140-TC; 82565-TC; 82962-TC; 83735-TC; 84100-TC; 85025-TC; 87081-TC; 97110-TC; 97112-TC; 97116-TC; 97530-TC; J1815

== ENCOUNTER 2024-01-08 17:46 | Inpatient (IN) | payer MEDICARE, OTHER ==
[~2024-01-08] VITALS: Ht 167.6 cm; Wt 73.5 kg
[~2024-01-08 17:46] MED LIST changes: -ACET-868 PO; +BLOO-668 IN; +BRIM5DRO11 RIGHTEYE; -BUSP5TAB3 PO; +CITR30SO PO; -CRAN400C PO; -GLIP5TAB13 PO; -LEVO175T7 PO; +LEVO50TA8 PO; -LINA5TAB PO; -MELA3TAB41 PO; +OLAN2.5T3 PO; +PANT40TA2 PO; -SIME80TA15 PO; +VALP250C3 PO
[2024-01-08 19:49] LABS: BASOPHILS % (AUTO) 0.3 % (0.0-2.0); EOSINOPHILS # (AUTO) 0.3 K/uL (0.0-0.7); HEMATOCRIT 35 % (39-51); LYMPHOCYTES # (AUTO) 1.8 K/uL (0.8-4.8); LYMPHOCYTES % (AUTO) 21.8 % (20.0-44.0); MEAN CORPUSCULAR HEMOGLOBIN 31 PG (26.0-33.0); MEAN CORPUSCULAR HGB CONC 31 g/dl (31.0-36.0); MEAN CORPUSCULAR VOLUME 98 fL (80-96); MONOCYTES # (AUTO) 1.2 K/uL (0.1-1.30); MONOCYTES % (AUTO) 14.9 % (2.0-12.0); NEUTROPHILS # (AUTO) 4.8 K/uL (1.8-8.9); PLATELET COUNT (AUTO) 202 K/uL (150-450); RED CELL DISTRIBUTION WIDTH 15.2 % (11.5-15.0); WHITE BLOOD COUNT (AUTO) 8.1 K/uL (4.3-11.0)
[2024-01-08 19:56] LABS: CALCIUM, SERUM 9.1 mg/dL (8.5-10.1); CARBON DIOXIDE 24 mmol/L (21-32); CHLORIDE 101 mmol/L (98-107); GLUCOSE 131 mg/dL (74-106); POTASSIUM 5.2 mmol/L (3.5-5.1); SODIUM SERUM 133 mmol/L (136-145); UREA NITROGEN, BLOOD 53 mg/dL (7-18)
[2024-01-08] MEDS ORDERED: OLANZAPINE 10 MG VIAL IM ONE (20:36)
[2024-01-08] MEDS: OLANZAPINE 10 MG VIAL IM ONE (20:42)
[2024-01-08 20:49] LABS: ALANINE AMINOTRANSFERASE 24 U/L (12-78); ALBUMIN 3.4 g/dL (3.4-5.0); ALKALINE PHOSPHATASE 60 U/L (46-116); ASPARTATE AMINOTRANSFERASE 22 U/L (15-37); BILIRUBIN,DIRECT 0.1 mg/dL (0.0-0.2); BILIRUBIN,TOTAL 0.3 mg/dL (0.2-1.0); TOTAL PROTEIN, SERUM 6.3 g/dL (6.4-8.2)
[2024-01-08] MEDS ORDERED: Z GUARD REMEDY 4 OZ OINT TP PRN (22:00)
[2024-01-08] MEDS ORDERED: ONDANSETRON HCL/PF 4 MG/2 ML VIAL IVP PRN (22:00)
[2024-01-08] MEDS ORDERED: LORAZEPAM INJ 2 MG/ML VIAL ONE (22:04)
[2024-01-08] MEDS: LORAZEPAM INJ 2 MG/ML VIAL IV ONE (22:07)
[2024-01-08 23:30] VITALS: BP 142/62; O2SAT 99
[2024-01-08 23:45] VITALS: BP 149/71; O2SAT 99
[2024-01-09] VITALS (31 sets, daily range): BP systolic 86–156; BP diastolic 44–94; TEMP 97–98.4; O2SAT 92–100
[2024-01-09] MEDS: Calcium Gluconate 0.465 MEQ/ML VIAL IV ONE (01:36)
[2024-01-09] MEDS: DEXTROSE 50%-WATER 50 ML DISP.SYRIN IVP ONE ×2 (01:36→05:44)
[2024-01-09] MEDS: INSULIN REGULAR, HUMAN 100 UNIT/ML 10 ML VIAL IV ONE (01:39)
[2024-01-09 04:56] LABS: BASOPHILS % (AUTO) 0.3 % (0.0-2.0); EOSINOPHILS # (AUTO) 0.4 K/uL (0.0-0.7); EOSINOPHILS % (AUTO) 3.1 % (0.0-6.0); HEMATOCRIT 34 % (39-51); HEMOGLOBIN 11.2 g/dL (13.5-17.5); LYMPHOCYTES # (AUTO) 4.1 K/uL (0.8-4.8); LYMPHOCYTES % (AUTO) 34.1 % (20.0-44.0); MEAN CORPUSCULAR HEMOGLOBIN 30 PG (26.0-33.0); MEAN CORPUSCULAR HGB CONC 33 g/dl (31.0-36.0); MEAN CORPUSCULAR VOLUME 92 fL (80-96); MONOCYTES # (AUTO) 2.2 K/uL (0.1-1.30); MONOCYTES % (AUTO) 18.3 % (2.0-12.0); NEUTROPHILS # (AUTO) 5.4 K/uL (1.8-8.9); NEUTROPHILS % (AUTO) 44.2 % (43.0-81.0); PLATELET COUNT (AUTO) 232 K/uL (150-450); RED CELL DISTRIBUTION WIDTH 14.1 % (11.5-15.0); WHITE BLOOD COUNT (AUTO) 12.2 K/uL (4.3-11.0)
[2024-01-09 05:18] LABS: ALANINE AMINOTRANSFERASE 26 U/L (12-78); ALBUMIN 3.3 g/dL (3.4-5.0); ALKALINE PHOSPHATASE 67 U/L (46-116); ASPARTATE AMINOTRANSFERASE 21 U/L (15-37); BILIRUBIN,DIRECT 0.1 mg/dL (0.0-0.2); BILIRUBIN,TOTAL 0.3 mg/dL (0.2-1.0); CALCIUM, SERUM 9.5 mg/dL (8.5-10.1); CARBON DIOXIDE 28 mmol/L (21-32); CHLORIDE 104 mmol/L (98-107); CREATININE 1.9 mg/dL (0.6-1.3); MAGNESIUM 2.5 mg/dL (1.8-2.4); PHOSPHORUS 3.4 mg/dL (2.5-4.9); POTASSIUM 3.9 mmol/L (3.5-5.1); SODIUM SERUM 141 mmol/L (136-145); TOTAL PROTEIN, SERUM 6.6 g/dL (6.4-8.2); UREA NITROGEN, BLOOD 50 mg/dL (7-18)
[2024-01-09 05:20] LABS: GLUCOSE 31 mg/dL (74-106)
[2024-01-09] MEDS ORDERED: DEXTROSE 50%-WATER 50 ML DISP.SYRIN ONE (05:24)
[2024-01-09] MEDS: IV D5W 1,000 ML IV SCH (08:23)
[2024-01-09] MEDS: PANTOPRAZOLE 40 MG VIAL IV SCH (08:28)
[2024-01-09] MEDS ORDERED: LORA-258 PO (08:36)
[2024-01-09] MEDS ORDERED: LEVO75TA7 PO (08:36)
[2024-01-09] MEDS ORDERED: MAG30ORA PO (08:36)
[2024-01-09] MEDS ORDERED: CRAN425C6 PO (08:36)
[2024-01-09] MEDS ORDERED: [UNRECOGNIZED DRUG - CODE] PO (08:36)
[2024-01-09] MEDS ORDERED: DIVA125T32 PO (08:36)
[2024-01-09] MEDS ORDERED: INSU100V28 SQ (08:36)
[2024-01-09] MEDS ORDERED: TEMA7.5C12 PO (08:36)
[2024-01-09] MEDS ORDERED: ACET-868 PO (08:36)
[2024-01-09] MEDS: IV D5/0.45 NACL 1,000 ML IV SCH (09:27)
[2024-01-09] MEDS ORDERED: DEXTROSE 50%-WATER 50 ML DISP.SYRIN IV PRN (10:00)
[2024-01-09] MEDS: BLOOD SUGAR DIAGNOSTIC 1 EACH STRIP IN SCH (12:16)
[2024-01-09] MEDS: INSULIN REGULAR, HUMAN 100 UNIT/ML 3 ML VIAL SQ PRN (23:37)
[2024-01-10] VITALS (18 sets, daily range): BP systolic 85–150; BP diastolic 47–87; TEMP 97.3–97.9; O2SAT 92–100
[2024-01-10 05:09] LABS: BASOPHILS % (AUTO) 0.5 % (0.0-2.0); EOSINOPHILS # (AUTO) 0.3 K/uL (0.0-0.7); HEMATOCRIT 30 % (39-51); LYMPHOCYTES # (AUTO) 1.2 K/uL (0.8-4.8); LYMPHOCYTES % (AUTO) 17.8 % (20.0-44.0); MEAN CORPUSCULAR HEMOGLOBIN 31 PG (26.0-33.0); MEAN CORPUSCULAR HGB CONC 33 g/dl (31.0-36.0); MEAN CORPUSCULAR VOLUME 93 fL (80-96); MONOCYTES % (AUTO) 14.3 % (2.0-12.0); NEUTROPHILS # (AUTO) 4.3 K/uL (1.8-8.9); NEUTROPHILS % (AUTO) 62.4 % (43.0-81.0); PLATELET COUNT (AUTO) 178 K/uL (150-450); RED BLOOD CELL COUNT(AUTO) 3.25 MIL/uL (4.5-6.0); WHITE BLOOD COUNT (AUTO) 6.9 K/uL (4.3-11.0)
[2024-01-10 05:27] LABS: CALCIUM, SERUM 8.4 mg/dL (8.5-10.1); CARBON DIOXIDE 29 mmol/L (21-32); CHLORIDE 103 mmol/L (98-107); CREATININE 1.8 mg/dL (0.6-1.3); GLUCOSE 153 mg/dL (74-106); POTASSIUM 4.9 mmol/L (3.5-5.1); SODIUM SERUM 137 mmol/L (136-145); UREA NITROGEN, BLOOD 35 mg/dL (7-18)
[2024-01-10 08:26] LABS: BAND % (MANUAL) 1 % (0.0-5.0); EOSINOPHILS % (MANUAL) 4 % (0-4); LYMPHOCYTES % (MANUAL) 17 % (16-48); MONOCYTES % (MANUAL) 12 % (0-11.0); NEUTROPHILS % (MANUAL) 66 (42-76)
[2024-01-10 08:27] LABS: PLATELET ESTIMATE ADEQUATE
[2024-01-10] MEDS: LORAZEPAM 1 MG TABLET PO PRN (15:53)
[2024-01-11] VITALS: BP 125/81; TEMP 98.4; O2SAT 96
[2024-01-11 05:00] VITALS: BP 103/57; TEMP 98.4; O2SAT 95
[2024-01-11] MEDS ORDERED: MAGNESIUM HYDROXIDE 30 ML UDC PO PRN (07:30)
[2024-01-11] MEDS ORDERED: BISACODYL SUPP (10 MG) 10 MG/SUPP.RECT SUPP.RECT RC PRN (07:30)
[2024-01-11] MEDS ORDERED: TEMAZEPAM 7.5 MG CAPSULE PO PRN (07:30)
[2024-01-11] MEDS ORDERED: MAG HYDROX/AL HYDROX/SIMETH 30 ML UDC PO PRN (07:30)
[2024-01-11] MEDS ORDERED: NA PHOS,M-B/NA PHOS,DI-BA 1 EA ENEMA RC PRN (07:30)
[2024-01-11] MEDS ORDERED: LORAZEPAM 0.5 MG TABLET PO PRN (07:30)
[2024-01-11] MEDS ORDERED: ACETAMINOPHEN 325 MG TABLET PO PRN (07:30)
[2024-01-11] MEDS: LEVOTHYROXINE SODIUM 75 MCG TABLET PO SCH (07:55)
[2024-01-11 08:35] VITALS: BP 112/70; TEMP 97.5; O2SAT 100
[2024-01-11] MEDS: PANTOPRAZOLE 40 MG TABLET.DR PO SCH (08:38)
[2024-01-11] MEDS: DOCUSATE SODIUM 100 MG CAPSULE PO SCH (08:39)
[2024-01-11] MEDS: DIVALPROEX SODIUM 500 MG TABLET.DR PO SCH (08:39)
[2024-01-11] MEDS: AMIODARONE HCL 200 MG TABLET PO SCH (08:39)
[2024-01-11] MEDS ORDERED: PANTOPRAZOLE 40 MG TABLET.DR PO SCH (09:00)
[2024-01-11 12:00] VITALS: BP 98/52; TEMP 97.5; O2SAT 100
== END 2024-01-11 14:00 | DRG 64 ==
LOC: ER 17:50 → ICU 22:36 → TELE 01-10 13:35
PROVIDERS: ADMIT Nurse Practitioner Family; ATTEND Internal Medicine
PROC: 5A09357 Assistance with Respiratory Ventilation, Less than 24 Consecutive Hours, Continuous Positive Airway Pressure (ICD-10-PCS; principal; 2024-01-10)
DX: I62.03 Nontraumatic chronic subdural hemorrhage (principal); G93.41 Metabolic encephalopathy; N17.0 Acute kidney failure with tubular necrosis; E87.1 Hypo-osmolality and hyponatremia; I13.0 Hypertensive heart and chronic kidney disease with heart failure and stage 1 through stage 4 chronic kidney disease, or unspecified chronic kidney disease; I48.91 Unspecified atrial fibrillation; N18.9 Chronic kidney disease, unspecified; W07.XXXA Fall from chair, initial encounter; Y92.129 Unspecified place in nursing home as the place of occurrence of the external cause; Z66 Do not resuscitate; E11.65 Type 2 diabetes mellitus with hyperglycemia; E87.5 Hyperkalemia; F03.90 Unspecified dementia, unspecified severity, without behavioral disturbance, psychotic disturbance, mood disturbance, and anxiety; E11.22 Type 2 diabetes mellitus with diabetic chronic kidney disease; Z96.642 Presence of left artificial hip joint; Z79.890 Hormone replacement therapy; Z79.899 Other long term (current) drug therapy; E03.9 Hypothyroidism, unspecified; I50.9 Heart failure, unspecified; E66.3 Overweight; E78.5 Hyperlipidemia, unspecified; F29 Unspecified psychosis not due to a substance or known physiological condition; Z68.26 Body mass index [BMI] 26.0-26.9, adult; R29.705 NIHSS score 5
CPT/HCPCS: 36415; 70450-TC; 72125-TC; 80048-TC; 80076-TC; 82962-TC; 83735-TC; 84100-TC; 84439-TC; 84443-TC; 84484-TC; 85025-TC; 86850-TC; A4223; G0378; J0610; J1815; J2060; J2470; J3490; J7070

== ENCOUNTER 2024-02-05 15:40 | Inpatient (IN) | payer MEDICARE, OTHER ==
[~2024-02-05] VITALS: Ht 167.6 cm; Wt 75.0 kg
[~2024-02-05 15:40] MED LIST changes: +ACET-868 PO; -BLOO-668 IN; -CITR30SO PO; +CRAN425C6 PO; +DIVA125T32 PO; +INSU100V28 SQ; -LEVO50TA8 PO; +LEVO75TA7 PO; +LORA-258 PO; +MAG30ORA PO; -OLAN2.5T3 PO; +TEMA7.5C12 PO; -VALP250C3 PO; +[UNRECOGNIZED DRUG - CODE] PO
[2024-02-05] MEDS ORDERED: HALOPERIDOL LACTATE INJ 5 MG/ML VIAL ONE (15:57)
[2024-02-05] MEDS: HALOPERIDOL LACTATE INJ 5 MG/ML VIAL IM ONE (16:00)
[2024-02-05 16:38] LABS: BASOPHILS % (AUTO) 0.4 % (0.0-2.0); EOSINOPHILS # (AUTO) 0.3 K/uL (0.0-0.7); HEMATOCRIT 30 % (39-51); HEMOGLOBIN 10.1 g/dL (13.5-17.5); LYMPHOCYTES # (AUTO) 1.2 K/uL (0.8-4.8); LYMPHOCYTES % (AUTO) 17.4 % (20.0-44.0); MEAN CORPUSCULAR HEMOGLOBIN 32 PG (26.0-33.0); MEAN CORPUSCULAR HGB CONC 34 g/dl (31.0-36.0); MEAN CORPUSCULAR VOLUME 95 fL (80-96); MONOCYTES % (AUTO) 14.3 % (2.0-12.0); NEUTROPHILS # (AUTO) 4.6 K/uL (1.8-8.9); NEUTROPHILS % (AUTO) 63.9 % (43.0-81.0); PLATELET COUNT (AUTO) 171 K/uL (150-450); RED BLOOD CELL COUNT(AUTO) 3.15 MIL/uL (4.5-6.0); RED CELL DISTRIBUTION WIDTH 15.1 % (11.5-15.0); WHITE BLOOD COUNT (AUTO) 7.2 K/uL (4.3-11.0)
[2024-02-05 16:46] LABS: CALCIUM, SERUM 9.1 mg/dL (8.5-10.1); CARBON DIOXIDE 24 mmol/L (21-32); CHLORIDE 103 mmol/L (98-107); CREATININE 2.1 mg/dL (0.6-1.3); GLUCOSE 112 mg/dL (74-106); POTASSIUM 4.9 mmol/L (3.5-5.1); SODIUM SERUM 135 mmol/L (136-145); UREA NITROGEN, BLOOD 61 mg/dL (7-18)
[2024-02-05 16:52] LABS: ALANINE AMINOTRANSFERASE 49 U/L (12-78); ALBUMIN 3.7 g/dL (3.4-5.0); ALCOHOL, BLOOD < 3 mg/dL (0-10); ALKALINE PHOSPHATASE 65 U/L (46-116); ASPARTATE AMINOTRANSFERASE 30 U/L (15-37); BILIRUBIN,DIRECT 0.1 mg/dL (0.0-0.2); BILIRUBIN,TOTAL 0.3 mg/dL (0.2-1.0); TOTAL PROTEIN, SERUM 6.6 g/dL (6.4-8.2)
[2024-02-05 16:53] LABS: ACETAMINOPHEN <10 ug/ml (10-30); SALICYLATE 0.9 mg/dL (2.8-20.0)
[2024-02-05] MEDS ORDERED: diphenhydrAMINE HCL 50 MG/ML VIAL ONE (16:56)
[2024-02-05] MEDS ORDERED: OLANZAPINE 10 MG VIAL IM ONE (16:56)
[2024-02-05 16:58] LABS: APPEARANCE,URINE Cloudy (CLEAR); BILIRUBIN,URINE Negative (NEGATIVE); BLOOD, URINE Moderate Ery/uL (NEGATIVE); COLOR,URINE YELLOW (YELLOW); KETONES,URINE Negative (NEGATIVE); LEUKOCYTE ESTERASE ,URINE Moderate (NEGATIVE); NITRITE, URINE Negative (NEGATIVE); PH,URINE 6.5 (5.0-8.0); PROTEIN,URINE 100 mg/dl (NEGATIVE); UGLUCOSE Negative (NEGATIVE); UROBILINOGEN,URINE 0.2 EU/dL (0.2)
[2024-02-05] MEDS: OLANZAPINE 10 MG VIAL IM ONE (17:00)
[2024-02-05] MEDS: diphenhydrAMINE HCL 50 MG/ML VIAL IM ONE (17:00)
[2024-02-05 17:11] LABS: ADD URINE CULTURE YES; BACTERIA,URINE Few /HPF (None Seen); RBC,URINE 51-80 /HPF (0-2); SQUAMOUS EPITHELIAL CELL,UR Few /HPF (None Seen); WBC,URINE TOO NUMEROUS TO COUN /HPF (0-3)
[2024-02-05 17:12] LABS: AMPHETAMINE, URINE NEGATIVE (NEGATIVE); BARBITURATE, URINE NEGATIVE (NEGATIVE); BENZODIAZEPINE, URINE NEGATIVE (NEGATIVE); CANNABINOID, URINE NEGATIVE (NEGATIVE); COCCAINE, URINE NEGATIVE (NEGATIVE); OPIATE, URINE NEGATIVE (NEGATIVE); PHENCYCLIDINE SCREEN,URINE NEGATIVE (NEGATIVE)
[2024-02-05] MEDS ORDERED: LORA-259 PO (18:40)
[2024-02-05] MEDS ORDERED: LEVO100T PO (18:40)
[2024-02-05] MEDS ORDERED: BUSP5TAB3 PO (18:40)
[2024-02-05] MEDS ORDERED: DIVA125C5 PO (18:40)
[2024-02-05] MEDS: IV NS 0.9% 1,000 ML BAG IV ONE (19:00)
[2024-02-05] MEDS ORDERED: CEFTRIAXONE 1GM BAG (ER ONLY) 50 ML IV ONE (19:09)
[2024-02-05] MEDS: CEFTRIAXONE 1GM BAG (ER ONLY) 1 GM/50 ML PIGGYBACK IV ONE (19:14)
[2024-02-05] MEDS ORDERED: ONDANSETRON HCL/PF 4 MG/2 ML VIAL IVP PRN (23:30)
[2024-02-05] MEDS ORDERED: Z GUARD REMEDY 4 OZ OINT TP PRN (23:30)
[2024-02-05] MEDS ORDERED: ACETAMINOPHEN 325 MG TABLET PO PRN (23:30)
[2024-02-06] MEDS: IV NS 0.9% 1,000 ML IV PRN (01:15)
[2024-02-06 05:54] VITALS: BP 145/70; TEMP 97.9; O2SAT 97
[2024-02-06 06:38] LABS: BASOPHILS % (AUTO) 0.2 % (0.0-2.0); EOSINOPHILS # (AUTO) 0.2 K/uL (0.0-0.7); EOSINOPHILS % (AUTO) 3.7 % (0.0-6.0); HEMATOCRIT 33 % (39-51); HEMOGLOBIN 11.1 g/dL (13.5-17.5); LYMPHOCYTES # (AUTO) 1.2 K/uL (0.8-4.8); LYMPHOCYTES % (AUTO) 18.5 % (20.0-44.0); MEAN CORPUSCULAR HEMOGLOBIN 32 PG (26.0-33.0); MEAN CORPUSCULAR HGB CONC 34 g/dl (31.0-36.0); MEAN CORPUSCULAR VOLUME 94 fL (80-96); MONOCYTES # (AUTO) 0.9 K/uL (0.1-1.30); MONOCYTES % (AUTO) 13.4 % (2.0-12.0); NEUTROPHILS # (AUTO) 4.3 K/uL (1.8-8.9); NEUTROPHILS % (AUTO) 64.2 % (43.0-81.0); PLATELET COUNT (AUTO) 174 K/uL (150-450); RED BLOOD CELL COUNT(AUTO) 3.46 MIL/uL (4.5-6.0); RED CELL DISTRIBUTION WIDTH 15.1 % (11.5-15.0); WHITE BLOOD COUNT (AUTO) 6.7 K/uL (4.3-11.0)
[2024-02-06 07:33] LABS: ALANINE AMINOTRANSFERASE 41 U/L (12-78); ALBUMIN 3.4 g/dL (3.4-5.0); ALKALINE PHOSPHATASE 63 U/L (46-116); ASPARTATE AMINOTRANSFERASE 31 U/L (15-37); BILIRUBIN,DIRECT 0.1 mg/dL (0.0-0.2); BILIRUBIN,TOTAL 0.4 mg/dL (0.2-1.0); CALCIUM, SERUM 8.9 mg/dL (8.5-10.1); CARBON DIOXIDE 26 mmol/L (21-32); CHLORIDE 111 mmol/L (98-107); CREATININE 1.8 mg/dL (0.6-1.3); GLUCOSE 120 mg/dL (74-106); MAGNESIUM 2.4 mg/dL (1.8-2.4); NT-PRO BNP 3658 pg/mL (0-125); PHOSPHORUS 3.8 mg/dL (2.5-4.9); POTASSIUM 4.9 mmol/L (3.5-5.1); SODIUM SERUM 143 mmol/L (136-145); TOTAL PROTEIN, SERUM 6.8 g/dL (6.4-8.2); UREA NITROGEN, BLOOD 54 mg/dL (7-18)
[2024-02-06] MEDS: PANTOPRAZOLE 40 MG TABLET.DR PO SCH (07:54)
[2024-02-06 08:00] VITALS: BP 117/65; TEMP 98.4; O2SAT 98
[2024-02-06] MEDS: ENOXAPARIN SODIUM 40 MG/0.4 ML DISP.SYRIN SQ SCH (08:36)
[2024-02-06] MEDS: ENOXAPARIN SODIUM 30 MG/0.3 ML DISP.SYRIN SQ SCH (09:07)
[2024-02-06] MEDS ORDERED: NA PHOS,M-B/NA PHOS,DI-BA 1 EA ENEMA RC PRN (09:30)
[2024-02-06] MEDS ORDERED: MAGNESIUM HYDROXIDE 30 ML UDC PO PRN (09:30)
[2024-02-06] MEDS ORDERED: ACETAMINOPHEN 325 MG TABLET PO PRN (09:30)
[2024-02-06] MEDS ORDERED: BISACODYL SUPP (10 MG) 10 MG/SUPP.RECT SUPP.RECT RC PRN (09:30)
[2024-02-06] MEDS: DOCUSATE SODIUM 100 MG CAPSULE PO SCH (10:18)
[2024-02-06] MEDS: DIVALPROEX SODIUM 125 MG CAP.SPRINK PO SCH (12:01)
[2024-02-06] MEDS: busPIRone 5 MG TABLET PO SCH (12:01)
[2024-02-06] MEDS: TIMOLOL 0.5% SOLN OPHTH 5 ML BOTTLE RIGHTEYE SCH (16:17)
[2024-02-06 20:00] VITALS: BP 107/54; TEMP 98.6; O2SAT 97
[2024-02-06] MEDS: CEFTRIAXONE 1 G in IV D5W 50 ML IV SCH (20:03)
[2024-02-07 06:16] LABS: BASOPHILS % (AUTO) 0.3 % (0.0-2.0); EOSINOPHILS # (AUTO) 0.4 K/uL (0.0-0.7); HEMATOCRIT 32 % (39-51); HEMOGLOBIN 10.7 g/dL (13.5-17.5); LYMPHOCYTES % (AUTO) 17.4 % (20.0-44.0); MEAN CORPUSCULAR HEMOGLOBIN 31 PG (26.0-33.0); MEAN CORPUSCULAR HGB CONC 33 g/dl (31.0-36.0); MEAN CORPUSCULAR VOLUME 95 fL (80-96); MONOCYTES # (AUTO) 0.7 K/uL (0.1-1.30); MONOCYTES % (AUTO) 11.9 % (2.0-12.0); NEUTROPHILS # (AUTO) 3.9 K/uL (1.8-8.9); NEUTROPHILS % (AUTO) 64.4 % (43.0-81.0); PLATELET COUNT (AUTO) 177 K/uL (150-450); RED BLOOD CELL COUNT(AUTO) 3.41 MIL/uL (4.5-6.0); RED CELL DISTRIBUTION WIDTH 15.1 % (11.5-15.0)
[2024-02-07 06:35] LABS: CALCIUM, SERUM 8.8 mg/dL (8.5-10.1); CARBON DIOXIDE 25 mmol/L (21-32); CHLORIDE 110 mmol/L (98-107); CREATININE 1.9 mg/dL (0.6-1.3); GLUCOSE 116 mg/dL (74-106); POTASSIUM 4.8 mmol/L (3.5-5.1); SODIUM SERUM 143 mmol/L (136-145); UREA NITROGEN, BLOOD 49 mg/dL (7-18)
[2024-02-07 07:00] VITALS: BP 127/75; TEMP 97.7; O2SAT 99
[2024-02-07] MEDS ORDERED: PANTOPRAZOLE 40 MG TABLET.DR PO SCH (09:00)
[2024-02-07] MEDS: AMIODARONE HCL 200 MG TABLET PO SCH (09:01)
[2024-02-07] MEDS: LEVOTHYROXINE SODIUM 100 MCG TABLET PO SCH (09:01)
[2024-02-07 16:00] VITALS: BP 148/82; TEMP 97.7; O2SAT 96
[2024-02-07] MEDS: LORAZEPAM 1 MG TABLET PO PRN (16:33)
[2024-02-07 20:00] VITALS: BP 131/68; TEMP 97.3; O2SAT 97
[2024-02-08] MEDS: ZOLPIDEM TARTRATE 5 MG TABLET PO PRN (00:14)
[2024-02-08 06:58] LABS: BASOPHILS % (AUTO) 0.5 % (0.0-2.0); EOSINOPHILS # (AUTO) 0.3 K/uL (0.0-0.7); EOSINOPHILS % (AUTO) 4.7 % (0.0-6.0); HEMATOCRIT 29 % (39-51); HEMOGLOBIN 9.8 g/dL (13.5-17.5); LYMPHOCYTES # (AUTO) 1.1 K/uL (0.8-4.8); LYMPHOCYTES % (AUTO) 17.2 % (20.0-44.0); MEAN CORPUSCULAR HEMOGLOBIN 32 PG (26.0-33.0); MEAN CORPUSCULAR HGB CONC 34 g/dl (31.0-36.0); MEAN CORPUSCULAR VOLUME 94 fL (80-96); MONOCYTES # (AUTO) 0.8 K/uL (0.1-1.30); MONOCYTES % (AUTO) 12.8 % (2.0-12.0); NEUTROPHILS # (AUTO) 4.2 K/uL (1.8-8.9); NEUTROPHILS % (AUTO) 64.8 % (43.0-81.0); PLATELET COUNT (AUTO) 164 K/uL (150-450); RED BLOOD CELL COUNT(AUTO) 3.08 MIL/uL (4.5-6.0); RED CELL DISTRIBUTION WIDTH 14.9 % (11.5-15.0); WHITE BLOOD COUNT (AUTO) 6.5 K/uL (4.3-11.0)
[2024-02-08 07:34] LABS: CALCIUM, SERUM 8.6 mg/dL (8.5-10.1); CARBON DIOXIDE 23 mmol/L (21-32); CHLORIDE 109 mmol/L (98-107); CREATININE 1.6 mg/dL (0.6-1.3); GLUCOSE 129 mg/dL (74-106); SODIUM SERUM 141 mmol/L (136-145); UREA NITROGEN, BLOOD 43 mg/dL (7-18)
[2024-02-08 08:00] VITALS: BP 149/87; TEMP 98; O2SAT 98
[2024-02-08 15:47] VITALS: BP 137/66; TEMP 97.5; O2SAT 98
== END 2024-02-08 20:15 | DRG 682 ==
LOC: ER 15:53 → MED 23:31
PROVIDERS: ADMIT Nurse Practitioner Family; ATTEND Nurse Practitioner Family
DX: N17.0 Acute kidney failure with tubular necrosis (principal); G93.41 Metabolic encephalopathy; N39.0 Urinary tract infection, site not specified; E87.1 Hypo-osmolality and hyponatremia; F03.92 Unspecified dementia, unspecified severity, with psychotic disturbance; F03.93 Unspecified dementia, unspecified severity, with mood disturbance; F03.94 Unspecified dementia, unspecified severity, with anxiety; I13.0 Hypertensive heart and chronic kidney disease with heart failure and stage 1 through stage 4 chronic kidney disease, or unspecified chronic kidney disease; I50.32 Chronic diastolic (congestive) heart failure; E86.0 Dehydration; Z66 Do not resuscitate; S06.5XAD Traumatic subdural hemorrhage with loss of consciousness status unknown, subsequent encounter; W19.XXXD Unspecified fall, subsequent encounter; E66.9 Obesity, unspecified; E78.5 Hyperlipidemia, unspecified; Z79.4 Long term (current) use of insulin; Z79.890 Hormone replacement therapy; Z79.899 Other long term (current) drug therapy; Z87.01 Personal history of pneumonia (recurrent); N18.9 Chronic kidney disease, unspecified; E11.22 Type 2 diabetes mellitus with diabetic chronic kidney disease; N40.0 Benign prostatic hyperplasia without lower urinary tract symptoms; R32 Unspecified urinary incontinence; I48.91 Unspecified atrial fibrillation
CPT/HCPCS: 36415; 70450-TC; 71045-TC; 80048-TC; 80076-TC; 81001; 83735-TC; 83880; 84100-TC; 84443-TC; 85025-TC; 87081-TC; 87086-TC; A4223; G0378; G0480; J0696; J1200; J1630; J1650; J3490; J7030; J7050; J7060

== ENCOUNTER 2024-02-09 15:57 | Emergency (ER) | payer MEDICARE, OTHER ==
[~2024-02-09] VITALS: Ht 160 cm; Wt 90.7 kg
[~2024-02-09 15:57] MED LIST changes: +BUSP5TAB3 PO; +DIVA125C5 PO; -DIVA125T32 PO; +LEVO100T PO; -LEVO75TA7 PO; -LORA-258 PO; +LORA-259 PO; -MAG30ORA PO; -TEMA7.5C12 PO; -[UNRECOGNIZED DRUG - CODE] PO
[2024-02-09 19:56] VITALS: BP 110/58; TEMP 98.3; O2SAT 94
== END 2024-02-09 19:56 ==
LOC: ER 16:01
DX: S06.5XAA Traumatic subdural hemorrhage with loss of consciousness status unknown, initial encounter (principal); G93.41 Metabolic encephalopathy; I10 Essential (primary) hypertension; N40.0 Benign prostatic hyperplasia without lower urinary tract symptoms; E11.9 Type 2 diabetes mellitus without complications; F03.94 Unspecified dementia, unspecified severity, with anxiety; Z79.890 Hormone replacement therapy; Z87.440 Personal history of urinary (tract) infections; Z79.899 Other long term (current) drug therapy; X58.XXXA Exposure to other specified factors, initial encounter; Y93.89 Activity, other specified; Y92.89 Other specified places as the place of occurrence of the external cause; Y99.8 Other external cause status
CPT/HCPCS: 70450-TC

== ENCOUNTER 2024-03-30 19:49 | Inpatient (IN) | payer MEDICARE, OTHER ==
[~2024-03-30] VITALS: Ht 177.8 cm; Wt 71.7 kg
[2024-03-30 20:48] LABS: BASOPHILS % (AUTO) 0.2 % (0.0-2.0); EOSINOPHILS % (AUTO) 0.1 % (0.0-6.0); HEMATOCRIT 29 % (39-51); HEMOGLOBIN 9.7 g/dL (13.5-17.5); LYMPHOCYTES # (AUTO) 0.5 K/uL (0.8-4.8); LYMPHOCYTES % (AUTO) 6.9 % (20.0-44.0); MEAN CORPUSCULAR HEMOGLOBIN 32 PG (26.0-33.0); MEAN CORPUSCULAR HGB CONC 34 g/dl (31.0-36.0); MEAN CORPUSCULAR VOLUME 94 fL (80-96); MONOCYTES # (AUTO) 1.2 K/uL (0.1-1.30); MONOCYTES % (AUTO) 16.7 % (2.0-12.0); NEUTROPHILS # (AUTO) 5.6 K/uL (1.8-8.9); NEUTROPHILS % (AUTO) 76.1 % (43.0-81.0); PLATELET COUNT (AUTO) 138 K/uL (150-450); RED BLOOD CELL COUNT(AUTO) 3.09 MIL/uL (4.5-6.0); WHITE BLOOD COUNT (AUTO) 7.3 K/uL (4.3-11.0)
[2024-03-30 20:53] LABS: LACTIC ACID 1.3 mmol/L (0.4-2.0)
[2024-03-30 20:56] LABS: CALCIUM, SERUM 8.4 mg/dL (8.5-10.1); CARBON DIOXIDE 23 mmol/L (21-32); CHLORIDE 106 mmol/L (98-107); CREATININE 3.6 mg/dL (0.6-1.3); GLUCOSE 194 mg/dL (74-106); POTASSIUM 5.1 mmol/L (3.5-5.1); SODIUM SERUM 139 mmol/L (136-145)
[2024-03-30 21:05] LABS: UREA NITROGEN, BLOOD 111 mg/dL (7-18)
[2024-03-30 21:06] LABS: BILIRUBIN,TOTAL 0.3 mg/dL (0.2-1.0)
[2024-03-30 21:07] LABS: ALANINE AMINOTRANSFERASE 56 U/L (12-78); ALBUMIN 2.4 g/dL (3.4-5.0); ALKALINE PHOSPHATASE 61 U/L (46-116); ASPARTATE AMINOTRANSFERASE 72 U/L (15-37); BILIRUBIN,DIRECT 0.1 mg/dL (0.0-0.2)
[2024-03-30 21:24] LABS: BASOPHILS % (MANUAL) 0 % (0.0-2.0); EOSINOPHILS % (MANUAL) 0 % (0-4); LYMPHOCYTES % (MANUAL) 7 % (16-48); MONOCYTES % (MANUAL) 13 % (0-11.0); NEUTROPHILS % (MANUAL) 80 (42-76); PLATELET ESTIMATE DECREASED
[2024-03-30] MEDS: IV NS 0.9% 1,000 ML BAG IV ONE (21:40)
[2024-03-30 22:25] LABS: APPEARANCE,URINE CLOUDY (CLEAR); BILIRUBIN,URINE NEGATIVE (NEGATIVE); BLOOD, URINE 3+ Ery/uL (NEGATIVE); COLOR,URINE YELLOW (YELLOW); KETONES,URINE NEGATIVE (NEGATIVE); LEUKOCYTE ESTERASE ,URINE 2+ (NEGATIVE); NITRITE, URINE NEGATIVE (NEGATIVE); PROTEIN,URINE 2+ mg/dl (NEGATIVE); UGLUCOSE NEGATIVE (NEGATIVE); UROBILINOGEN,URINE 0.2 EU/dL (0.2)
[2024-03-30] MEDS: CEFTRIAXONE 1GM BAG (ER ONLY) 1 GM/50 ML PIGGYBACK IV ONE (22:40)
[2024-03-30] MEDS ORDERED: CEFTRIAXONE 1GM BAG (ER ONLY) 50 ML IV ONE (22:41)
[2024-03-30 22:42] LABS: ADD URINE CULTURE YES; BACTERIA,URINE Many /HPF (None Seen); WBC,URINE TOO NUMEROUS TO COUN /HPF (0-3)
[2024-03-31] VITALS: BP 135/64; TEMP 97.5; O2SAT 95
[2024-03-31] MEDS ORDERED: ACETAMINOPHEN 650 MG/SUPP.RECT RC PRN
[2024-03-31] MEDS ORDERED: ONDANSETRON HCL/PF 4 MG/2 ML VIAL IVP PRN
[2024-03-31] MEDS: IV NS 0.9% 1,000 ML IV PRN (00:16)
[2024-03-31 04:00] VITALS: BP 126/67; TEMP 97.3; O2SAT 99
[2024-03-31 04:49] LABS: ABG BASE EXCESS -3.1 mmol/L (-2.0-3.0); ABG OXYGEN SATURATION 96.5 % (94.0-98.0); ABG PCO2 30.3 mmHg (35.0-48.0); ABG PH 7.441 (7.350-7.450); ABG PO2 94.8 mmHg (83.0-108.0); ABG TOTAL HEMOGLOBIN 10.7 G/dL (13.5-17.5); COHb 0.3 % (0.5-1.5); MetHb 0.3 % (0.0-1.5); O2Hb 95.9 % (94.0-97.0); SITE, ABG RIGHT RADIAL
[2024-03-31] MEDS: PANTOPRAZOLE 40 MG TABLET.DR PO SCH (07:30)
[2024-03-31 08:00] VITALS: BP 98/66; TEMP 97.9; O2SAT 99
[2024-03-31 08:06] LABS: CALCIUM, SERUM 8.4 mg/dL (8.5-10.1); CARBON DIOXIDE 21 mmol/L (21-32); CHLORIDE 110 mmol/L (98-107); CREATININE 3.1 mg/dL (0.6-1.3); GLUCOSE 165 mg/dL (74-106); MAGNESIUM 2.8 mg/dL (1.8-2.4); PHOSPHORUS 4.2 mg/dL (2.5-4.9); POTASSIUM 4.6 mmol/L (3.5-5.1); SODIUM SERUM 143 mmol/L (136-145); UREA NITROGEN, BLOOD 104 mg/dL (7-18)
[2024-03-31 08:44] LABS: BASOPHILS % (AUTO) 0.1 % (0.0-2.0); EOSINOPHILS % (AUTO) 0.3 % (0.0-6.0); HEMATOCRIT 31 % (39-51); HEMOGLOBIN 10.3 g/dL (13.5-17.5); LYMPHOCYTES # (AUTO) 0.5 K/uL (0.8-4.8); LYMPHOCYTES % (AUTO) 5.8 % (20.0-44.0); MEAN CORPUSCULAR HEMOGLOBIN 31 PG (26.0-33.0); MEAN CORPUSCULAR HGB CONC 33 g/dl (31.0-36.0); MEAN CORPUSCULAR VOLUME 95 fL (80-96); MONOCYTES # (AUTO) 1.4 K/uL (0.1-1.30); MONOCYTES % (AUTO) 16.8 % (2.0-12.0); NEUTROPHILS # (AUTO) 6.6 K/uL (1.8-8.9); PLATELET COUNT (AUTO) 136 K/uL (150-450); RED BLOOD CELL COUNT(AUTO) 3.27 MIL/uL (4.5-6.0); RED CELL DISTRIBUTION WIDTH 15.4 % (11.5-15.0); WHITE BLOOD COUNT (AUTO) 8.6 K/uL (4.3-11.0)
[2024-03-31] MEDS ORDERED: GLUC1KIT IM (08:56)
[2024-03-31] MEDS ORDERED: QUET25TA PO (08:56)
[2024-03-31] MEDS ORDERED: NETA2.5D3 EACHEYE (08:56)
[2024-03-31] MEDS ORDERED: DIVA125C5 PO (08:56)
[2024-03-31 10:38] LABS: LYMPHOCYTES % (MANUAL) 14 % (16-48); MONOCYTES % (MANUAL) 4 % (0-11.0); MYELOCYTES % 2 % (0-0); NEUTROPHILS % (MANUAL) 80 (42-76); PLATELET ESTIMATE DECREASED
[2024-03-31 10:39] LABS: ANISOCYTOSIS 1+; OVALOCYTES 1+
[2024-03-31 12:00] VITALS: BP 110/96; TEMP 97.4; O2SAT 98
[2024-03-31 16:00] VITALS: BP 150/99; TEMP 97.7; O2SAT 98
[2024-03-31] MEDS: AMIODARONE HCL 200 MG TABLET PO SCH (16:13)
[2024-03-31] MEDS ORDERED: AMIODARONE HCL 200 MG TABLET PO SCH (16:30)
[2024-03-31] MEDS ORDERED: MAGNESIUM HYDROXIDE 30 ML UDC PO PRN (16:30)
[2024-03-31] MEDS ORDERED: ACETAMINOPHEN 325 MG TABLET PO PRN (16:30)
[2024-03-31] MEDS ORDERED: NA PHOS,M-B/NA PHOS,DI-BA 1 EA ENEMA RC PRN (16:30)
[2024-03-31] MEDS ORDERED: BISACODYL SUPP (10 MG) 10 MG/SUPP.RECT SUPP.RECT RC PRN (16:30)
[2024-03-31] MEDS: DIVALPROEX SODIUM 125 MG CAP.SPRINK PO SCH ×2 (17:09→22:08)
[2024-03-31] MEDS: busPIRone 5 MG TABLET PO SCH (17:09)
[2024-03-31] MEDS: QUETIAPINE FUMARATE 25 MG TABLET PO SCH (17:10)
[2024-03-31] MEDS ORDERED: INSULIN REGULAR, HUMAN 100 UNIT/ML 3 ML VIAL SQ SCH (17:30)
[2024-03-31] MEDS ORDERED: DEXTROSE 50%-WATER 50 ML DISP.SYRIN IV PRN (17:30)
[2024-03-31] MEDS: BLOOD SUGAR DIAGNOSTIC 1 EACH STRIP IN SCH (17:41)
[2024-03-31 18:02] LABS: ALANINE AMINOTRANSFERASE 44 U/L (12-78); ALBUMIN 2.2 g/dL (3.4-5.0); ALKALINE PHOSPHATASE 65 U/L (46-116); ASPARTATE AMINOTRANSFERASE 48 U/L (15-37); BILIRUBIN,TOTAL 0.3 mg/dL (0.2-1.0); CALCIUM, SERUM 7.9 mg/dL (8.5-10.1); CARBON DIOXIDE 23 mmol/L (21-32); CHLORIDE 112 mmol/L (98-107); CREATININE 2.6 mg/dL (0.6-1.3); GLUCOSE 148 mg/dL (74-106); POTASSIUM 4.5 mmol/L (3.5-5.1); SODIUM SERUM 143 mmol/L (136-145); TOTAL PROTEIN, SERUM 5.7 g/dL (6.4-8.2)
[2024-03-31 18:03] LABS: UREA NITROGEN, BLOOD 94 mg/dL (7-18)
[2024-03-31] MEDS: INSULIN REGULAR, HUMAN 100 UNIT/ML 3 ML VIAL SQ PRN (18:10)
[2024-03-31] MEDS: TIMOLOL 0.5% SOLN OPHTH 5 ML BOTTLE RIGHTEYE SCH (18:22)
[2024-03-31 20:00] VITALS: BP 103/70; TEMP 97.7; O2SAT 99
[2024-03-31] MEDS: CEFTRIAXONE 1 G in IV D5W 50 ML IV SCH (22:01)
[2024-04-01] VITALS: BP 110/59; TEMP 97.9; O2SAT 100
[2024-04-01 04:00] VITALS: BP 110/55; TEMP 97.9; O2SAT 98
[2024-04-01 08:00] VITALS: BP 105/60; TEMP 98; O2SAT 96
[2024-04-01] MEDS: DOCUSATE SODIUM 100 MG CAPSULE PO SCH (08:21)
[2024-04-01] MEDS: LEVOTHYROXINE SODIUM 100 MCG TABLET PO SCH (08:21)
[2024-04-01] MEDS: PANTOPRAZOLE 40 MG TABLET.DR PO SCH (08:22)
[2024-04-01 10:26] LABS: BASOPHILS % (AUTO) 0.1 % (0.0-2.0); EOSINOPHILS # (AUTO) 0.1 K/uL (0.0-0.7); EOSINOPHILS % (AUTO) 1.9 % (0.0-6.0); HEMATOCRIT 29 % (39-51); HEMOGLOBIN 9.8 g/dL (13.5-17.5); LYMPHOCYTES # (AUTO) 0.6 K/uL (0.8-4.8); MEAN CORPUSCULAR HEMOGLOBIN 32 PG (26.0-33.0); MEAN CORPUSCULAR HGB CONC 34 g/dl (31.0-36.0); MEAN CORPUSCULAR VOLUME 95 fL (80-96); MONOCYTES # (AUTO) 0.8 K/uL (0.1-1.30); MONOCYTES % (AUTO) 11.1 % (2.0-12.0); NEUTROPHILS # (AUTO) 5.9 K/uL (1.8-8.9); NEUTROPHILS % (AUTO) 78.9 % (43.0-81.0); PLATELET COUNT (AUTO) 145 K/uL (150-450); RED BLOOD CELL COUNT(AUTO) 3.05 MIL/uL (4.5-6.0); RED CELL DISTRIBUTION WIDTH 15.1 % (11.5-15.0); WHITE BLOOD COUNT (AUTO) 7.5 K/uL (4.3-11.0)
[2024-04-01 10:44] LABS: CREATINE KINASE, TOTAL 110 U/L (39-308)
[2024-04-01 10:45] LABS: ALANINE AMINOTRANSFERASE 45 U/L (12-78); ALBUMIN 2.1 g/dL (3.4-5.0); ALKALINE PHOSPHATASE 69 U/L (46-116); ASPARTATE AMINOTRANSFERASE 49 U/L (15-37); BILIRUBIN,TOTAL 0.2 mg/dL (0.2-1.0); CALCIUM, SERUM 7.9 mg/dL (8.5-10.1); CARBON DIOXIDE 22 mmol/L (21-32); CHLORIDE 113 mmol/L (98-107); CREATININE 2.4 mg/dL (0.6-1.3); GLUCOSE 163 mg/dL (74-106); MAGNESIUM 2.6 mg/dL (1.8-2.4); POTASSIUM 4.3 mmol/L (3.5-5.1); SODIUM SERUM 144 mmol/L (136-145); TOTAL PROTEIN, SERUM 5.8 g/dL (6.4-8.2)
[2024-04-01 10:46] LABS: UREA NITROGEN, BLOOD 84 mg/dL (7-18)
[2024-04-01] MEDS: ACETAMINOPHEN 325 MG TABLET PO PRN (11:28)
[2024-04-01 12:35] VITALS: TEMP 98
[2024-04-01] MEDS: AMIODARONE HCL 200 MG TABLET PO SCH (15:29)
[2024-04-01 16:00] VITALS: BP 116/65; TEMP 97.9; O2SAT 94
[2024-04-01 20:00] VITALS: BP 119/57; TEMP 97.5; O2SAT 100
[2024-04-02 02:07] LABS: PTH, INTACT 21 pg/mL (15-65)
[2024-04-02 04:00] VITALS: BP 122/65; TEMP 97.3; O2SAT 98
[2024-04-02 08:10] VITALS: BP 106/79; TEMP 97.7; O2SAT 94
[2024-04-02 15:16] LABS: BASOPHILS % (AUTO) 0.1 % (0.0-2.0); EOSINOPHILS # (AUTO) 0.1 K/uL (0.0-0.7); EOSINOPHILS % (AUTO) 1.8 % (0.0-6.0); HEMATOCRIT 31 % (39-51); HEMOGLOBIN 10.1 g/dL (13.5-17.5); LYMPHOCYTES # (AUTO) 0.7 K/uL (0.8-4.8); LYMPHOCYTES % (AUTO) 8.8 % (20.0-44.0); MEAN CORPUSCULAR HEMOGLOBIN 31 PG (26.0-33.0); MEAN CORPUSCULAR HGB CONC 33 g/dl (31.0-36.0); MEAN CORPUSCULAR VOLUME 95 fL (80-96); MONOCYTES # (AUTO) 0.6 K/uL (0.1-1.30); MONOCYTES % (AUTO) 7.9 % (2.0-12.0); NEUTROPHILS # (AUTO) 6.3 K/uL (1.8-8.9); NEUTROPHILS % (AUTO) 81.4 % (43.0-81.0); PLATELET COUNT (AUTO) 161 K/uL (150-450); RED BLOOD CELL COUNT(AUTO) 3.25 MIL/uL (4.5-6.0); RED CELL DISTRIBUTION WIDTH 15.8 % (11.5-15.0); WHITE BLOOD COUNT (AUTO) 7.7 K/uL (4.3-11.0)
[2024-04-02 15:29] LABS: CALCIUM, SERUM 7.5 mg/dL (8.5-10.1); CARBON DIOXIDE 23 mmol/L (21-32); CHLORIDE 111 mmol/L (98-107); GLUCOSE 195 mg/dL (74-106); POTASSIUM 4.1 mmol/L (3.5-5.1); SODIUM SERUM 143 mmol/L (136-145); UREA NITROGEN, BLOOD 62 mg/dL (7-18)
[2024-04-02 16:05] VITALS: BP 110/60; TEMP 97.7; O2SAT 96
[2024-04-02 18:17] LABS: ANISOCYTOSIS 1+; BAND % (MANUAL) 3 % (0.0-5.0); EOSINOPHILS % (MANUAL) 2 % (0-4); LYMPHOCYTES % (MANUAL) 8 % (16-48); MONOCYTES % (MANUAL) 2 % (0-11.0); MYELOCYTES % 2 % (0-0); NEUTROPHILS % (MANUAL) 83 (42-76); OVALOCYTES 1+; PLATELET ESTIMATE ADEQUATE
[2024-04-02 20:00] VITALS: BP 142/81; TEMP 97.5; O2SAT 99
[2024-04-03 04:00] VITALS: BP 92/57; TEMP 97.6; O2SAT 97
[2024-04-03 08:00] VITALS: BP 109/69; TEMP 98.1; O2SAT 92
[2024-04-03 10:18] VITALS: O2SAT 97
[2024-04-03] MEDS ORDERED: CT SWABBABLE VALVE TRANS SET 1 EA INFUS.SET MC ONE (13:00)
[2024-04-03] MEDS ORDERED: IOHEXOL-350 100 ML VIAL IV ONE (13:00)
[2024-04-03] MEDS ORDERED: IV NS 0.9% 250 ML IV ONE (13:01)
[2024-04-03 13:34] LABS: ABG BASE EXCESS -6.1 mmol/L (-2.0-3.0); ABG OXYGEN SATURATION 96.8 % (94.0-98.0); ABG PCO2 28.6 mmHg (35.0-48.0); ABG PH 7.406 (7.350-7.450); ABG PO2 90.3 mmHg (83.0-108.0); ABG TOTAL HEMOGLOBIN 10.1 G/dL (13.5-17.5); COHb 0.3 % (0.5-1.5); MetHb 0.3 % (0.0-1.5); O2Hb 96.2 % (94.0-97.0); SITE, ABG RIGHT BRACHIAL
[2024-04-03 13:44] LABS: BASOPHILS % (AUTO) 0.2 % (0.0-2.0); EOSINOPHILS # (AUTO) 0.2 K/uL (0.0-0.7); EOSINOPHILS % (AUTO) 2.7 % (0.0-6.0); HEMATOCRIT 28 % (39-51); HEMOGLOBIN 9.2 g/dL (13.5-17.5); LYMPHOCYTES # (AUTO) 0.9 K/uL (0.8-4.8); LYMPHOCYTES % (AUTO) 13.3 % (20.0-44.0); MEAN CORPUSCULAR HEMOGLOBIN 31 PG (26.0-33.0); MEAN CORPUSCULAR HGB CONC 33 g/dl (31.0-36.0); MEAN CORPUSCULAR VOLUME 95 fL (80-96); MONOCYTES # (AUTO) 0.6 K/uL (0.1-1.30); MONOCYTES % (AUTO) 8.6 % (2.0-12.0); NEUTROPHILS # (AUTO) 5.2 K/uL (1.8-8.9); NEUTROPHILS % (AUTO) 75.2 % (43.0-81.0); PLATELET COUNT (AUTO) 159 K/uL (150-450); RED BLOOD CELL COUNT(AUTO) 2.97 MIL/uL (4.5-6.0); RED CELL DISTRIBUTION WIDTH 15.5 % (11.5-15.0); WHITE BLOOD COUNT (AUTO) 6.9 K/uL (4.3-11.0)
[2024-04-03 13:54] LABS: CARBON DIOXIDE 18 mmol/L (21-32); CHLORIDE 115 mmol/L (98-107); CREATININE 1.9 mg/dL (0.6-1.3); GLUCOSE 147 mg/dL (74-106); POTASSIUM 4.5 mmol/L (3.5-5.1); SODIUM SERUM 141 mmol/L (136-145); UREA NITROGEN, BLOOD 46 mg/dL (7-18)
[2024-04-03 13:57] LABS: INR 1.16 (0.91-1.10); PROTHROMBIN TIME 12.2 SECS (9.2-11.1)
[2024-04-03 16:00] VITALS: BP 133/77; TEMP 97.7; O2SAT 96
[2024-04-03] MEDS ORDERED: MEROPENEM 500 MG in IV NS 0.9% 50 ML IV SCH (17:30)
[2024-04-03] MEDS ORDERED: IV LR 500 ML IV SCH (17:30)
[2024-04-03 17:40] LABS: CALCIUM, SERUM 7.4 mg/dL (8.5-10.1); CARBON DIOXIDE 21 mmol/L (21-32); CHLORIDE 114 mmol/L (98-107); GLUCOSE 143 mg/dL (74-106); POTASSIUM 4.4 mmol/L (3.5-5.1); SODIUM SERUM 143 mmol/L (136-145); UREA NITROGEN, BLOOD 46 mg/dL (7-18)
[2024-04-03] MEDS: MEROPENEM 1 G in IV NS 0.9% 100 ML IV SCH (17:59)
[2024-04-03] MEDS: IV LR 1000 ML 1,000 ML IV ONE (18:44)
[2024-04-03 20:00] VITALS: BP 143/66; TEMP 97.9; O2SAT 100
[2024-04-04] VITALS: BP 145/97; TEMP 97.9; O2SAT 100
[2024-04-04 04:00] VITALS: BP 129/66; TEMP 98; O2SAT 100
[2024-04-04 08:00] VITALS: BP 146/76; TEMP 97.7; O2SAT 93
[2024-04-04 12:00] VITALS: BP 101/89; TEMP 97.7; O2SAT 99
[2024-04-04 12:26] LABS: THYROID STIMULATING HORMONE 16.5 uIU/mL (0.358-3.74)
[2024-04-04 16:00] VITALS: BP 139/96; TEMP 97.4; O2SAT 95
[2024-04-04] MEDS: MEROPENEM 1 G in IV NS 0.9% 100 ML IV SCH (19:53)
[2024-04-04 20:00] VITALS: BP 144/68; TEMP 97.3; O2SAT 98
[2024-04-05] VITALS: BP 105/62; TEMP 97.5; O2SAT 99
[2024-04-05 04:00] VITALS: BP 101/55; TEMP 97.7; O2SAT 98
[2024-04-05 07:09] LABS: *SPE A/G RATIO 0.9 (0.7-1.7); *SPE ALBUMIN 2.4 g/dL (2.9-4.4); *SPE ALPHA-1-GLOBULIN 0.3 g/dL (0.0-0.4); *SPE ALPHA-2-GLOBULIN 0.9 g/dL (0.4-1.0); *SPE BETA GLOBULIN 0.8 g/dL (0.7-1.3); *SPE GLOBULIN, TOTAL 2.7 g/dL (2.2-3.9); *SPE M-SPIKE Not Observed g/dL (Not Observed); *SPE PROTEIN TOTAL 5.1 g/dL (6.0-8.5); *SPEGAMMA GLOBULIN 0.6 g/dL (0.4-1.8)
[2024-04-05 08:00] VITALS: BP 115/64; TEMP 97.7; O2SAT 99
[2024-04-05 08:07] LABS: FOLIC ACID 9.2 ng/mL (>3.0)
[2024-04-05 08:39] LABS: BASOPHILS % (AUTO) 0.3 % (0.0-2.0); EOSINOPHILS # (AUTO) 0.2 K/uL (0.0-0.7); EOSINOPHILS % (AUTO) 1.9 % (0.0-6.0); HEMATOCRIT 29 % (39-51); HEMOGLOBIN 9.5 g/dL (13.5-17.5); LYMPHOCYTES # (AUTO) 1.4 K/uL (0.8-4.8); LYMPHOCYTES % (AUTO) 15.3 % (20.0-44.0); MEAN CORPUSCULAR HEMOGLOBIN 31 PG (26.0-33.0); MEAN CORPUSCULAR HGB CONC 33 g/dl (31.0-36.0); MEAN CORPUSCULAR VOLUME 93 fL (80-96); MONOCYTES % (AUTO) 10.2 % (2.0-12.0); NEUTROPHILS # (AUTO) 6.8 K/uL (1.8-8.9); NEUTROPHILS % (AUTO) 72.3 % (43.0-81.0); PLATELET COUNT (AUTO) 187 K/uL (150-450); RED BLOOD CELL COUNT(AUTO) 3.08 MIL/uL (4.5-6.0); WHITE BLOOD COUNT (AUTO) 9.4 K/uL (4.3-11.0)
[2024-04-05 09:00] LABS: ALANINE AMINOTRANSFERASE 28 U/L (12-78); ALKALINE PHOSPHATASE 56 U/L (46-116); ASPARTATE AMINOTRANSFERASE 23 U/L (15-37); BILIRUBIN,TOTAL 0.3 mg/dL (0.2-1.0); CALCIUM, SERUM 7.9 mg/dL (8.5-10.1); CARBON DIOXIDE 24 mmol/L (21-32); CHLORIDE 117 mmol/L (98-107); CREATININE 1.9 mg/dL (0.6-1.3); GLUCOSE 99 mg/dL (74-106); MAGNESIUM 2.1 mg/dL (1.8-2.4); PHOSPHORUS 2.9 mg/dL (2.5-4.9); POTASSIUM 4.2 mmol/L (3.5-5.1); SODIUM SERUM 148 mmol/L (136-145); TOTAL PROTEIN, SERUM 5.1 g/dL (6.4-8.2); UREA NITROGEN, BLOOD 35 mg/dL (7-18)
[2024-04-05 12:00] VITALS: BP 127/78; TEMP 97.5; O2SAT 100
[2024-04-05 16:00] VITALS: BP 136/94; TEMP 97.7; O2SAT 95
[2024-04-05] MEDS: IV 1/2NS 1000 ML 1,000 ML IV PRN (18:42)
[2024-04-05 20:00] VITALS: BP 140/80; TEMP 97.8; O2SAT 100
[2024-04-06] VITALS: BP 149/82; TEMP 97.8; O2SAT 99
[2024-04-06 04:00] VITALS: BP 148/74; TEMP 97.5; O2SAT 99
[2024-04-06 07:31] LABS: BASOPHILS % (AUTO) 0.2 % (0.0-2.0); EOSINOPHILS # (AUTO) 0.2 K/uL (0.0-0.7); EOSINOPHILS % (AUTO) 1.4 % (0.0-6.0); HEMATOCRIT 31 % (39-51); HEMOGLOBIN 10.1 g/dL (13.5-17.5); LYMPHOCYTES # (AUTO) 1.1 K/uL (0.8-4.8); MEAN CORPUSCULAR HEMOGLOBIN 31 PG (26.0-33.0); MEAN CORPUSCULAR HGB CONC 33 g/dl (31.0-36.0); MEAN CORPUSCULAR VOLUME 94 fL (80-96); MONOCYTES # (AUTO) 1.3 K/uL (0.1-1.30); MONOCYTES % (AUTO) 11.6 % (2.0-12.0); NEUTROPHILS # (AUTO) 8.6 K/uL (1.8-8.9); NEUTROPHILS % (AUTO) 76.8 % (43.0-81.0); PLATELET COUNT (AUTO) 197 K/uL (150-450); RED BLOOD CELL COUNT(AUTO) 3.24 MIL/uL (4.5-6.0); WHITE BLOOD COUNT (AUTO) 11.3 K/uL (4.3-11.0)
[2024-04-06 07:50] LABS: ALANINE AMINOTRANSFERASE 30 U/L (12-78); ALBUMIN 2.3 g/dL (3.4-5.0); ALKALINE PHOSPHATASE 63 U/L (46-116); ASPARTATE AMINOTRANSFERASE 26 U/L (15-37); BILIRUBIN,TOTAL 0.4 mg/dL (0.2-1.0); CALCIUM, SERUM 8.2 mg/dL (8.5-10.1); CARBON DIOXIDE 27 mmol/L (21-32); CHLORIDE 115 mmol/L (98-107); CREATININE 1.9 mg/dL (0.6-1.3); GLUCOSE 123 mg/dL (74-106); MAGNESIUM 2.1 mg/dL (1.8-2.4); PHOSPHORUS 2.4 mg/dL (2.5-4.9); POTASSIUM 4.2 mmol/L (3.5-5.1); SODIUM SERUM 149 mmol/L (136-145); TOTAL PROTEIN, SERUM 5.7 g/dL (6.4-8.2); UREA NITROGEN, BLOOD 31 mg/dL (7-18)
[2024-04-06 08:00] VITALS: BP 138/53; TEMP 98.2; O2SAT 94
[2024-04-06 12:00] VITALS: BP 112/56; TEMP 98.5; O2SAT 100
[2024-04-06 16:00] VITALS: BP 129/91; TEMP 98.3; O2SAT 100
[2024-04-06] MEDS: K PHOS NEUTRAL 250 MG TABLET PO ONE (16:28)
[2024-04-06 16:30] VITALS: BP 129/79
[2024-04-08 14:10] LABS: VITAMIN B1 THIAMINE,WB 108.6 nmol/L (66.5-200.0)
== END 2024-04-06 17:40 | DRG 871 ==
LOC: ER 19:51 → TELE1 22:03 → MEDSG1 04-01 11:19 → TELE1 04-03 13:42 → MEDSG1 04-06 13:52
PROVIDERS: ADMIT Nurse Practitioner Family; ATTEND Nurse Practitioner Family
DX: A41.51 Sepsis due to Escherichia coli [E. coli] (principal); G93.41 Metabolic encephalopathy; J96.01 Acute respiratory failure with hypoxia; N17.9 Acute kidney failure, unspecified; N12 Tubulo-interstitial nephritis, not specified as acute or chronic; I13.0 Hypertensive heart and chronic kidney disease with heart failure and stage 1 through stage 4 chronic kidney disease, or unspecified chronic kidney disease; E44.0 Moderate protein-calorie malnutrition; E87.0 Hyperosmolality and hypernatremia; F03.93 Unspecified dementia, unspecified severity, with mood disturbance; Z66 Do not resuscitate; H40.9 Unspecified glaucoma; N18.9 Chronic kidney disease, unspecified; I50.9 Heart failure, unspecified; S06.5XAD Traumatic subdural hemorrhage with loss of consciousness status unknown, subsequent encounter; R40.2132 Coma scale, eyes open, to sound, at arrival to emergency department; R40.2362 Coma scale, best motor response, obeys commands, at arrival to emergency department; R40.2242 Coma scale, best verbal response, confused conversation, at arrival to emergency department; X58.XXXD Exposure to other specified factors, subsequent encounter; E03.9 Hypothyroidism, unspecified; N40.0 Benign prostatic hyperplasia without lower urinary tract symptoms; R29.810 Facial weakness; I48.91 Unspecified atrial fibrillation; E86.0 Dehydration; E78.5 Hyperlipidemia, unspecified; D63.1 Anemia in chronic kidney disease; H54.62 Unqualified visual loss, left eye, normal vision right eye; I25.10 Atherosclerotic heart disease of native coronary artery without angina pectoris; I70.0 Atherosclerosis of aorta; E88.09 Other disorders of plasma-protein metabolism, not elsewhere classified; Z79.890 Hormone replacement therapy; Z79.899 Other long term (current) drug therapy; E11.22 Type 2 diabetes mellitus with diabetic chronic kidney disease; I67.2 Cerebral atherosclerosis; Z79.4 Long term (current) use of insulin; Z91.81 History of falling
CPT/HCPCS: 36415; 36600; 70450-TC; 70496-TC; 70498-TC; 71045-TC; 80048-TC; 80053-TC; 80061-TC; 80076-TC; 80164-TC; 81001; 82140-TC; 82550-TC; 82607-TC; 82803-TC; 82962-TC; 83605-TC; 83735-TC; 83880; 83921; 83970; 84100-TC; 84155; 84165; 84425; 84439-TC; 84443-TC; 84484-TC; 85025-TC; 85378-TC; 85385-TC; 85730-TC; 86850-TC; 87040-TC; 87081-TC; 87086-TC; 92526; 92611-TC; 97110-TC; 97112-TC; 97530-TC; 97535-TC; A4223; G0378; J0696; J1815; J2185; J3490; J7030; J7040; J7050; J7060; J7120; Q9967

== ENCOUNTER 2024-10-04 21:39 | Inpatient (IN) | payer MEDICARE, OTHER ==
[~2024-10-04] VITALS: Ht 177.8 cm; Wt 63.5 kg
[~2024-10-04 21:39] MED LIST changes: +GLUC1KIT IM; -LORA-259 PO; +NETA2.5D3 EACHEYE; +QUET25TA PO
[2024-10-04] MEDS ORDERED: ACETAMINOPHEN ES 500 MG TABLET ONE (22:40)
[2024-10-04] MEDS: ACETAMINOPHEN ES 500 MG TABLET PO ONE (22:56)
[2024-10-04] MEDS ORDERED: LORAZEPAM INJ 2 MG/ML VIAL ONE (22:58)
[2024-10-04] MEDS: LORAZEPAM INJ 2 MG/ML VIAL IV ONE (23:07)
[2024-10-05] MEDS ORDERED: LEVETIRACETAM (500MG) 500 MG/5 ML VIAL IV ONE (00:08)
[2024-10-05] MEDS: LEVETIRACETAM (500MG) 500 MG in IV NS 0.9% 100 ML IV SCH (00:15)
[2024-10-05] MEDS ORDERED: MORPHINE SULFATE INJ 2 MG/ML DISP.SYRIN IV PRN (00:30)
[2024-10-05] MEDS ORDERED: ONDANSETRON HCL/PF 4 MG/2 ML VIAL IVP PRN (00:30)
[2024-10-05] MEDS ORDERED: ACETAMINOPHEN 325 MG TABLET PO PRN ×2 (00:30→10:30)
[2024-10-05 00:43] LABS: CALCIUM, SERUM 9.2 mg/dL (8.5-10.1); CREATININE 1.6 mg/dL (0.6-1.3); POTASSIUM 4.7 mmol/L (3.5-5.1)
[2024-10-05 00:49] LABS: BILIRUBIN,DIRECT 0.1 mg/dL (0.0-0.2); BILIRUBIN,TOTAL 0.4 mg/dL (0.2-1.0); TOTAL PROTEIN, SERUM 6.9 g/dL (6.4-8.2)
[2024-10-05 01:04] VITALS: BP 134/66; TEMP 97.5; O2SAT 96
[2024-10-05 01:16] LABS: INR 1.11 (0.91-1.10); PARTIAL THROMBOPLASTIN TIME 31.5 SEC (24.3-34.3); PROTHROMBIN TIME 11.7 SECS (9.2-11.1)
[2024-10-05] MEDS: BLOOD SUGAR DIAGNOSTIC 1 EACH STRIP VI SCH (01:36)
[2024-10-05] MEDS: *INSULIN REGULAR(HUMULIN R)HUM 100 UNIT/ML VIAL SQ PRN (01:38)
[2024-10-05] MEDS: IV NS 0.9% 1,000 ML IV SCH (01:38)
[2024-10-05 01:46] LABS: BASOPHILS % (AUTO) 0.3 % (0.0-2.0); EOSINOPHILS # (AUTO) 0.1 K/uL (0.0-0.7); EOSINOPHILS % (AUTO) 1.5 % (0.0-6.0); HEMATOCRIT 30 % (39-51); HEMOGLOBIN 10.3 g/dL (13.5-17.5); LYMPHOCYTES # (AUTO) 1.3 K/uL (0.8-4.8); MEAN CORPUSCULAR HEMOGLOBIN 30 PG (26.0-33.0); MEAN CORPUSCULAR HGB CONC 34 g/dl (31.0-36.0); MEAN CORPUSCULAR VOLUME 89 fL (80-96); MONOCYTES # (AUTO) 0.6 K/uL (0.1-1.30); MONOCYTES % (AUTO) 6.5 % (2.0-12.0); NEUTROPHILS # (AUTO) 7.7 K/uL (1.8-8.9); NEUTROPHILS % (AUTO) 78.7 % (43.0-81.0); PLATELET COUNT (AUTO) 292 K/uL (150-450); RED BLOOD CELL COUNT(AUTO) 3.38 MIL/uL (4.5-6.0); WHITE BLOOD COUNT (AUTO) 9.7 K/uL (4.3-11.0)
[2024-10-05 02:52] VITALS: BP 134/66; TEMP 97.5; O2SAT 96
[2024-10-05] MEDS: INSULIN REGULAR, HUMAN 100 UNIT/ML 3 ML VIAL SQ PRN (06:31)
[2024-10-05] MEDS: PANTOPRAZOLE 40 MG TABLET.DR PO SCH (07:27)
[2024-10-05] MEDS: LEVOTHYROXINE SODIUM 100 MCG TABLET PO SCH (07:27)
[2024-10-05 08:00] VITALS: BP 106/65; TEMP 98.1; O2SAT 97
[2024-10-05] MEDS ORDERED: LORA-258 PO (08:11)
[2024-10-05] MEDS ORDERED: MAG30ORA PO (08:11)
[2024-10-05] MEDS ORDERED: LATA7.5D EACHEYE (08:11)
[2024-10-05] MEDS ORDERED: LEVO150T8 PO (08:11)
[2024-10-05] MEDS: QUETIAPINE FUMARATE 25 MG TABLET PO SCH (09:00)
[2024-10-05] MEDS: AMIODARONE HCL 200 MG TABLET PO SCH (09:00)
[2024-10-05] MEDS: busPIRone 5 MG TABLET PO SCH (09:00)
[2024-10-05] MEDS: DIVALPROEX SODIUM 125 MG CAP.SPRINK PO SCH ×2 (09:00→21:55)
[2024-10-05] MEDS: POLYETHYLENE GLYCOL 3350 17 GM POWD.PACK PO SCH (09:00)
[2024-10-05] MEDS: TIMOLOL 0.5% SOLN OPHTH 5 ML BOTTLE RIGHTEYE SCH (09:00)
[2024-10-05] MEDS: DOCUSATE SODIUM LIQ 100 MG/10 ML UDC PO SCH (09:00)
[2024-10-05] MEDS: NEOMY SULF/BACITRAC ZN/POLY 15 GM TUBE TP SCH (10:03)
[2024-10-05] MEDS: BRIMONIDINE TARTRATE OPHT SOLN 5 ML BOTTLE RIGHTEYE SCH (10:03)
[2024-10-05] MEDS ORDERED: HOME MED MISCELLANEOUS XX SCH (10:30)
[2024-10-05] MEDS ORDERED: LORAZEPAM 0.5 MG TABLET PO PRN (10:30)
[2024-10-05] MEDS ORDERED: MAG HYDROX/AL HYDROX/SIMETH 30 ML UDC PO PRN (10:30)
[2024-10-05] MEDS ORDERED: NA PHOS,M-B/NA PHOS,DI-BA 1 EA ENEMA RC PRN (10:30)
[2024-10-05] MEDS ORDERED: BISACODYL SUPP (10 MG) 10 MG/SUPP.RECT SUPP.RECT RC PRN (10:30)
[2024-10-05] MEDS ORDERED: MAGNESIUM HYDROXIDE 30 ML UDC PO PRN (10:30)
[2024-10-05 11:41] LABS: BASOPHILS % (AUTO) 0.4 % (0.0-2.0); EOSINOPHILS # (AUTO) 0.2 K/uL (0.0-0.7); EOSINOPHILS % (AUTO) 2.7 % (0.0-6.0); HEMATOCRIT 31 % (39-51); HEMOGLOBIN 10.7 g/dL (13.5-17.5); LYMPHOCYTES # (AUTO) 1.2 K/uL (0.8-4.8); LYMPHOCYTES % (AUTO) 15.1 % (20.0-44.0); MEAN CORPUSCULAR HEMOGLOBIN 30 PG (26.0-33.0); MEAN CORPUSCULAR HGB CONC 34 g/dl (31.0-36.0); MEAN CORPUSCULAR VOLUME 89 fL (80-96); MONOCYTES # (AUTO) 0.7 K/uL (0.1-1.30); MONOCYTES % (AUTO) 8.7 % (2.0-12.0); NEUTROPHILS # (AUTO) 5.9 K/uL (1.8-8.9); NEUTROPHILS % (AUTO) 73.1 % (43.0-81.0); PLATELET COUNT (AUTO) 277 K/uL (150-450); RED BLOOD CELL COUNT(AUTO) 3.54 MIL/uL (4.5-6.0)
[2024-10-05 12:01] LABS: ALBUMIN 2.8 g/dL (3.4-5.0); BILIRUBIN,TOTAL 0.4 mg/dL (0.2-1.0); CALCIUM, SERUM 8.8 mg/dL (8.5-10.1); CREATININE 1.6 mg/dL (0.6-1.3); POTASSIUM 4.3 mmol/L (3.5-5.1); TOTAL PROTEIN, SERUM 6.5 g/dL (6.4-8.2)
[2024-10-05 16:00] VITALS: BP 145/68; TEMP 98.1; O2SAT 95
[2024-10-05 20:00] VITALS: BP 120/52; TEMP 97.5; O2SAT 96
[2024-10-05] MEDS: LATANOPROST EYE DROP 0.005% 2.5 ML BOTTLE EACHEYE SCH (21:55)
[2024-10-05] MEDS ORDERED: Medication Not On Formulary EA (Netarsudil Mesylat/Latanoprost (Rocklatan 0.02%-0.005% E EACHEYE SCH (22:00)
[2024-10-06] VITALS: BP 120/79; TEMP 97.7; O2SAT 96
[2024-10-06 04:00] VITALS: BP 128/67; TEMP 97.5; O2SAT 96
[2024-10-06] MEDS: DEXTROSE 50%-WATER 50 ML DISP.SYRIN IV PRN (06:15)
[2024-10-06 07:00] VITALS: BP 142/80; TEMP 97.9; O2SAT 99
[2024-10-06] MEDS: LEVOTHYROXINE SODIUM 75 MCG TABLET PO SCH (07:30)
[2024-10-06 08:21] LABS: MAGNESIUM 2.1 mg/dL (1.8-2.4); PHOSPHORUS 3.3 mg/dL (2.5-4.9)
[2024-10-06] MEDS ORDERED: DOCUSATE SODIUM 100 MG CAPSULE PO SCH (09:00)
[2024-10-06 12:00] VITALS: BP 120/89; TEMP 97.9; O2SAT 99
[2024-10-06 16:00] VITALS: BP 97/56; TEMP 97.9; O2SAT 97
[2024-10-06] MEDS ORDERED: IV NS 0.9% 1,000 ML IV SCH (18:00)
[2024-10-06] MEDS: IV D5/0.45 NACL 1,000 ML IV PRN (18:13)
[2024-10-06 20:00] VITALS: BP 135/69; TEMP 98.1; O2SAT 93
[2024-10-06 21:30] LABS: APPEARANCE,URINE CLOUDY (CLEAR); BILIRUBIN,URINE NEGATIVE (NEGATIVE); BLOOD, URINE 2+ Ery/uL (NEGATIVE); COLOR,URINE YELLOW (YELLOW); KETONES,URINE NEGATIVE (NEGATIVE); LEUKOCYTE ESTERASE ,URINE 3+ (NEGATIVE); NITRITE, URINE POSITIVE (NEGATIVE); PROTEIN,URINE 2+ mg/dl (NEGATIVE); UGLUCOSE TRACE mg/dL (NEGATIVE); UROBILINOGEN,URINE 0.2 EU/dL (0.2)
[2024-10-06 21:49] LABS: WBC,URINE TOO NUMEROUS TO COUN /HPF (0-3)
[2024-10-06 21:50] LABS: ADD URINE CULTURE YES; BACTERIA,URINE Many /HPF (None Seen)
[2024-10-06 21:54] LABS: SQUAMOUS EPITHELIAL CELL,UR None Seen /HPF (None Seen)
[2024-10-07] VITALS: BP 112/71; TEMP 98.1; O2SAT 98
[2024-10-07 08:00] VITALS: BP 110/56; TEMP 98.4; O2SAT 97
[2024-10-07] MEDS: LEVETIRACETAM (250 MG) 250 MG TABLET PO SCH (09:00)
[2024-10-07 12:00] VITALS: BP 131/71; TEMP 98.1; O2SAT 98
[2024-10-07] MEDS: MUPIROCIN OINT 2% 22 GM TUBE NS SCH (12:49)
[2024-10-07] MEDS: CEFTRIAXONE 1 G in IV D5W 50 ML IV SCH (12:57)
[2024-10-07 16:00] VITALS: BP 130/61; TEMP 97.7; O2SAT 96
[2024-10-07 20:00] VITALS: BP 126/65; TEMP 97.7; O2SAT 95
[2024-10-08] VITALS: BP 118/70; TEMP 97.9; O2SAT 95
[2024-10-08 04:00] VITALS: BP 124/75; TEMP 97.7; O2SAT 97
[2024-10-08 08:19] VITALS: BP 122/77; TEMP 97.9; O2SAT 97
[2024-10-08 08:57] VITALS: BP 122/77; TEMP 97.9; O2SAT 97
== END 2024-10-08 12:00 | DRG 85 ==
LOC: ER 22:00 → TELE 10-05 00:43
PROVIDERS: ADMIT Nurse Practitioner Acute Care; ATTEND Nurse Practitioner Acute Care
DX: S06.5X0A Traumatic subdural hemorrhage without loss of consciousness, initial encounter (principal); G93.41 Metabolic encephalopathy; E44.0 Moderate protein-calorie malnutrition; E87.1 Hypo-osmolality and hyponatremia; N39.0 Urinary tract infection, site not specified; F02.83 Dementia in other diseases classified elsewhere, unspecified severity, with mood disturbance; N17.9 Acute kidney failure, unspecified; I13.0 Hypertensive heart and chronic kidney disease with heart failure and stage 1 through stage 4 chronic kidney disease, or unspecified chronic kidney disease; W19.XXXA Unspecified fall, initial encounter; Y93.9 Activity, unspecified; I10 Essential (primary) hypertension; E03.9 Hypothyroidism, unspecified; E11.22 Type 2 diabetes mellitus with diabetic chronic kidney disease; E78.5 Hyperlipidemia, unspecified; E88.09 Other disorders of plasma-protein metabolism, not elsewhere classified; H40.9 Unspecified glaucoma; Z79.4 Long term (current) use of insulin; S01.81XA Laceration without foreign body of other part of head, initial encounter; N18.9 Chronic kidney disease, unspecified; N40.1 Benign prostatic hyperplasia with lower urinary tract symptoms; F39 Unspecified mood [affective] disorder; G30.9 Alzheimer's disease, unspecified; I48.91 Unspecified atrial fibrillation; N25.0 Renal osteodystrophy; R40.2142 Coma scale, eyes open, spontaneous, at arrival to emergency department; R40.2362 Coma scale, best motor response, obeys commands, at arrival to emergency department; R40.2252 Coma scale, best verbal response, oriented, at arrival to emergency department; Z22.322 Carrier or suspected carrier of Methicillin resistant Staphylococcus aureus; Y92.129 Unspecified place in nursing home as the place of occurrence of the external cause; B96.20 Unspecified Escherichia coli [E. coli] as the cause of diseases classified elsewhere; I50.9 Heart failure, unspecified
CPT/HCPCS: 36415; 70450-TC; 71045-TC; 72125-TC; 72170-TC; 80048-TC; 80053-TC; 80076-TC; 81001; 82962-TC; 83735-TC; 84100-TC; 85025-TC; 85730-TC; 86850-TC; 87081-TC; 87086-TC; 87186-TC; 92526; 92611-TC; 97110-TC; 97112-TC; 97530-TC; 97535-TC; A4223; G0378; J0696; J1815; J1953; J2060; J3490; J7030; J7060

== ENCOUNTER 2024-11-18 18:15 | Inpatient (IN) | payer MEDICARE, OTHER ==
[~2024-11-18] VITALS: Ht 170.2 cm; Wt 58.1 kg
[~2024-11-18 18:15] MED LIST changes: -BRIN8DRO2 RIGHTEYE; -BUSP5TAB3 PO; +LATA7.5D EACHEYE; -LEVO100T PO; +LEVO150T8 PO; +LORA-258 PO; +MAG30ORA PO; -NETA2.5D3 EACHEYE; -PANT40TA2 PO; -QUET25TA PO
[2024-11-18] MEDS ORDERED: ACETAMINOPHEN 650 MG/SUPP.RECT RC ONE (18:32)
[2024-11-18] MEDS: IV NS 0.9% 500 ML BAG IV ONE ×2 (18:36→20:38)
[2024-11-18] MEDS: CEFEPIME 1 GM in IV D5W 50 ML IV ONE (18:37)
[2024-11-18 18:39] LABS: PLATELET COUNT (AUTO) 317 K/uL (150-450); RED BLOOD CELL COUNT(AUTO) 4.17 MIL/uL (4.5-6.0); RED CELL DISTRIBUTION WIDTH 16.2 % (11.5-15.0); WHITE BLOOD COUNT (AUTO) 6.4 K/uL (4.3-11.0)
[2024-11-18] MEDS: ACETAMINOPHEN 650 MG/SUPP.RECT RC ONE (18:47)
[2024-11-18 18:49] LABS: CALCIUM, SERUM 9.6 mg/dL (8.5-10.1); CREATININE 2.3 mg/dL (0.6-1.3); SODIUM SERUM 141 mmol/L (136-145); UREA NITROGEN, BLOOD 69 mg/dL (7-18)
[2024-11-18 18:51] LABS: INR 1.05 (0.91-1.10)
[2024-11-18] MEDS ORDERED: LEVE500T20 PO (18:59)
[2024-11-18] MEDS ORDERED: IPRA3AMP23 IH (18:59)
[2024-11-18 19:03] LABS: APPEARANCE,URINE CLEAR (CLEAR); BLOOD, URINE Moderate Ery/uL (NEGATIVE); LEUKOCYTE ESTERASE ,URINE Small (NEGATIVE); UGLUCOSE 100 MG/DL mg/dL (NEGATIVE)
[2024-11-18 19:04] LABS: NITRITE, URINE NEGATIVE (NEGATIVE)
[2024-11-18 19:05] LABS: ADD URINE CULTURE YES; SQUAMOUS EPITHELIAL CELL,UR Few /HPF (None Seen); URINE AMORPHOUS PHOSPHATES Few /HPF (None Seen)
[2024-11-18 19:06] LABS: ASPARTATE AMINOTRANSFERASE 12 U/L (15-37); TOTAL PROTEIN, SERUM 7.0 g/dL (6.4-8.2)
[2024-11-18 19:08] LABS: LACTIC ACID 4.6 mmol/L (0.4-2.0)
[2024-11-18 19:08] LABS: ABG BASE EXCESS -15.6 mmol/L (-2.0-3.0); ABG OXYGEN SATURATION 97.8 % (94.0-98.0); ABG PCO2 30.1 mmHg (35.0-48.0); ABG PH 7.190 (7.350-7.450); ABG PO2 138.0 mmHg (83.0-108.0); ABG TOTAL HEMOGLOBIN 11.4 G/dL (13.5-17.5); FLOW, BLOOD GAS 15.00 L/min (0.00-30.00); FRACTIONATED INSPIRED OXYGEN 100.0 %; SITE, ABG RIGHT BRACHIAL
[2024-11-18] MEDS: VANCOMYCIN 1 GM in IV D5W 250 ML IV ONE (19:11)
[2024-11-18] MEDS ORDERED: NOREPINEPHRINE 8 MG in IV D5W 242 ML IV PRN (22:00)
[2024-11-18] MEDS ORDERED: ONDANSETRON HCL/PF 4 MG/2 ML VIAL IVP PRN (22:00)
[2024-11-18] MEDS ORDERED: DOSING PER PHARMACY-VANCOMYCIN IV XX PRN (22:00)
[2024-11-18] MEDS ORDERED: ACETAMINOPHEN 650 MG/SUPP.RECT RC PRN (22:00)
[2024-11-18] MEDS ORDERED: DOSING PER PHARMACY-CEFEPIME IVPB XX PRN (22:00)
[2024-11-18] MEDS ORDERED: ENOXAPARIN SODIUM 40 MG/0.4 ML DISP.SYRIN SQ SCH (22:00)
[2024-11-18] MEDS ORDERED: IPRATROPIUM NEB FS 0.5 MG/2.5 ML AMPUL.NEB NEB PRN (23:00)
[2024-11-18] MEDS ORDERED: ALBUTEROL FS 2.5 MG/3 ML VIAL.NEB NEB PRN (23:00)
[2024-11-18 23:15] VITALS: BP 123/106; O2SAT 85
[2024-11-19] VITALS (87 sets, daily range): BP systolic 75–164; BP diastolic 48–132; TEMP 97.6–99.4; O2SAT 96–100
[2024-11-19] MEDS: IV NS 0.9% 500 ML BAG IV ONE (00:09)
[2024-11-19] MEDS: ENOXAPARIN SODIUM 30 MG/0.3 ML DISP.SYRIN SQ ONE (00:18)
[2024-11-19] MEDS: PHENYLEPHRINE 50 MG in IV NS 0.9% 245 ML IV PRN (01:17)
[2024-11-19] MEDS: PHENYLEPHRINE 10 MG/ML VIAL ONE ×2 (01:28)
[2024-11-19] MEDS: IV NS 0.9% 1,000 ML IV PRN (03:06)
[2024-11-19 04:34] LABS: PLATELET COUNT (AUTO) 293 K/uL (150-450); RED BLOOD CELL COUNT(AUTO) 3.54 MIL/uL (4.5-6.0); RED CELL DISTRIBUTION WIDTH 15.2 % (11.5-15.0); WHITE BLOOD COUNT (AUTO) 12.3 K/uL (4.3-11.0)
[2024-11-19 04:54] LABS: CALCIUM, SERUM 8.7 mg/dL (8.5-10.1); CREATININE 1.8 mg/dL (0.6-1.3); PHOSPHORUS 4.7 mg/dL (2.5-4.9); SODIUM SERUM 143.0 mmol/L (136-145); UREA NITROGEN, BLOOD 72.0 mg/dL (7-18)
[2024-11-19 05:31] LABS: LACTIC ACID 2.0 mmol/L (0.4-2.0)
[2024-11-19] MEDS: PANTOPRAZOLE 40 MG VIAL IV SCH (08:07)
[2024-11-19] MEDS: CEFEPIME 2 GM in IV D5W 100 ML IV SCH (17:39)
[2024-11-19] MEDS: VANCOMYCIN 750 MG in IV D5W 250 ML IV SCH (18:42)
[2024-11-19] MEDS ORDERED: ENOXAPARIN SODIUM 30 MG/0.3 ML DISP.SYRIN SQ SCH (21:00)
[2024-11-20] VITALS (45 sets, daily range): BP systolic 97–148; BP diastolic 56–83; TEMP 98–99; O2SAT 98–100
[2024-11-20 04:41] LABS: PLATELET COUNT (AUTO) 262 K/uL (150-450); RED BLOOD CELL COUNT(AUTO) 3.55 MIL/uL (4.5-6.0); RED CELL DISTRIBUTION WIDTH 15.6 % (11.5-15.0); WHITE BLOOD COUNT (AUTO) 8.8 K/uL (4.3-11.0)
[2024-11-20 04:58] LABS: CALCIUM, SERUM 8.7 mg/dL (8.5-10.1); CREATININE 1.2 mg/dL (0.6-1.3); PHOSPHORUS 3.3 mg/dL (2.5-4.9); SODIUM SERUM 145.0 mmol/L (136-145); UREA NITROGEN, BLOOD 56.0 mg/dL (7-18)
[2024-11-20 08:47] LABS: ABG BASE EXCESS -6.8 mmol/L (-2.0-3.0); ABG OXYGEN SATURATION 96.0 % (94.0-98.0); ABG PCO2 24.3 mmHg (35.0-48.0); ABG PH 7.434 (7.350-7.450); ABG PO2 84.9 mmHg (83.0-108.0); ABG TOTAL HEMOGLOBIN 11.0 G/dL (13.5-17.5); FLOW, BLOOD GAS 4.00 L/min (0.00-30.00); FRACTIONATED INSPIRED OXYGEN 36.0 %; SITE, ABG LEFT RADIAL
[2024-11-20] MEDS: IV D5/ 0.9% NACL 1,000 ML IV SCH (16:32)
[2024-11-20] MEDS: AMIODARONE 150 MG/3 ML VIAL IV ONE (23:56)
[2024-11-21] VITALS (26 sets, daily range): BP systolic 94–130; BP diastolic 53–82; TEMP 98.6–99.2; O2SAT 97–100
[2024-11-21] MEDS: AMIODARONE 150 MG/3 ML VIAL IV ONE
[2024-11-21] MEDS ORDERED: DOSING PER PHARMACY-AMIODARONE DRIP XX PRN
[2024-11-21] MEDS: AMIODARONE 150 MG in IV D5W 100 ML IV ONE (00:01)
[2024-11-21] MEDS: AMIODARONE 450 MG in IV D5W 241 ML IV PRN (00:17)
[2024-11-21 10:37] LABS: CALCIUM, SERUM 8.1 mg/dL (8.5-10.1); CREATININE 1.2 mg/dL (0.6-1.3); SODIUM SERUM 146.0 mmol/L (136-145); UREA NITROGEN, BLOOD 45.0 mg/dL (7-18)
[2024-11-21 10:48] LABS: PHOSPHORUS 2.8 mg/dL (2.5-4.9)
[2024-11-21 11:16] LABS: RED BLOOD CELL COUNT(AUTO) 3.55 MIL/uL (4.5-6.0); RED CELL DISTRIBUTION WIDTH 15.3 % (11.5-15.0); WHITE BLOOD COUNT (AUTO) 10.4 K/uL (4.3-11.0)
[2024-11-21 14:22] LABS: PLATELET COUNT (AUTO) 233 K/uL (150-450)
[2024-11-21] MEDS: OSMOLITE 1.2 CAL 1,000 ML LIQUID GT PRN (18:21)
[2024-11-22] VITALS (44 sets, daily range): BP systolic 97–142; BP diastolic 49–78; TEMP 98–100; O2SAT 96–100
[2024-11-22 10:29] LABS: PLATELET COUNT (AUTO) 249 K/uL (150-450); RED BLOOD CELL COUNT(AUTO) 3.52 MIL/uL (4.5-6.0); RED CELL DISTRIBUTION WIDTH 15.8 % (11.5-15.0); WHITE BLOOD COUNT (AUTO) 11.0 K/uL (4.3-11.0)
[2024-11-22 10:40] LABS: CALCIUM, SERUM 9.1 mg/dL (8.5-10.1); CREATININE 1.3 mg/dL (0.6-1.3); PHOSPHORUS 2.5 mg/dL (2.5-4.9); SODIUM SERUM 140.0 mmol/L (136-145); UREA NITROGEN, BLOOD 33.0 mg/dL (7-18)
[2024-11-22 12:30] LABS: EOSINOPHILS % (MANUAL) 2 % (0-4); LYMPHOCYTES % (MANUAL) 12 % (16-48); MONOCYTES % (MANUAL) 5 % (0-11.0); NEUTROPHILS % (MANUAL) 81 (42-76); PLATELET ESTIMATE ADEQUATE
[2024-11-22] MEDS: FREE WATER VIA TUBE FEEDING GT SCH (12:49)
[2024-11-22] MEDS: AMIODARONE HCL 200 MG TABLET PO SCH (13:00)
[2024-11-22] MEDS: FUROSEMIDE 40 MG/4 ML VIAL IV SCH (21:33)
[2024-11-23] VITALS (20 sets, daily range): BP systolic 88–158; BP diastolic 52–90; TEMP 98.4–99; O2SAT 92–100
[2024-11-23 04:55] LABS: PLATELET COUNT (AUTO) 227 K/uL (150-450); RED BLOOD CELL COUNT(AUTO) 3.42 MIL/uL (4.5-6.0); RED CELL DISTRIBUTION WIDTH 15.7 % (11.5-15.0); WHITE BLOOD COUNT (AUTO) 13.4 K/uL (4.3-11.0)
[2024-11-23 05:10] LABS: CALCIUM, SERUM 8.7 mg/dL (8.5-10.1); CREATININE 1.2 mg/dL (0.6-1.3); PHOSPHORUS 2.2 mg/dL (2.5-4.9); SODIUM SERUM 141.0 mmol/L (136-145); UREA NITROGEN, BLOOD 28.0 mg/dL (7-18)
[2024-11-23] MEDS: MUPIROCIN OINT 2% 22 GM TUBE NS SCH (12:00)
[2024-11-23] MEDS: NEUTRA PHOS 1 POWD.PACKET GT ONE (16:38)
[2024-11-24] VITALS: BP 114/66; TEMP 97.9; O2SAT 97
[2024-11-24 04:00] VITALS: BP 124/59; TEMP 97.5; O2SAT 97
[2024-11-24 07:34] LABS: PLATELET COUNT (AUTO) 217 K/uL (150-450); RED BLOOD CELL COUNT(AUTO) 3.88 MIL/uL (4.5-6.0); RED CELL DISTRIBUTION WIDTH 16.0 % (11.5-15.0); WHITE BLOOD COUNT (AUTO) 13.2 K/uL (4.3-11.0)
[2024-11-24 08:00] VITALS: BP 119/67; TEMP 98.8; O2SAT 98
[2024-11-24 08:30] LABS: CALCIUM, SERUM 8.4 mg/dL (8.5-10.1); CREATININE 1.2 mg/dL (0.6-1.3); PHOSPHORUS 2.6 mg/dL (2.5-4.9); SODIUM SERUM 138.0 mmol/L (136-145); UREA NITROGEN, BLOOD 27.0 mg/dL (7-18)
[2024-11-24] MEDS: PANTOPRAZOLE 40 MG/PACK PACK NG SCH (08:35)
[2024-11-24 12:00] VITALS: BP 118/70; TEMP 98.6; O2SAT 98
[2024-11-24 16:00] VITALS: BP 126/78; TEMP 98.4; O2SAT 98
[2024-11-24] MEDS: AMIODARONE HCL 200 MG TABLET PO SCH (17:30)
[2024-11-24 20:00] VITALS: BP 151/98; TEMP 97.9; O2SAT 94
[2024-11-25] VITALS (7 sets, daily range): BP systolic 106–145; BP diastolic 52–91; TEMP 97.3–98.9; O2SAT 92–95
[2024-11-25 08:17] LABS: PLATELET COUNT (AUTO) 225 K/uL (150-450); RED BLOOD CELL COUNT(AUTO) 3.50 MIL/uL (4.5-6.0); RED CELL DISTRIBUTION WIDTH 15.6 % (11.5-15.0); WHITE BLOOD COUNT (AUTO) 13.9 K/uL (4.3-11.0)
[2024-11-25 08:48] LABS: CALCIUM, SERUM 8.4 mg/dL (8.5-10.1); CREATININE 1.1 mg/dL (0.6-1.3); SODIUM SERUM 133.0 mmol/L (136-145); UREA NITROGEN, BLOOD 23.0 mg/dL (7-18)
[2024-11-25 09:23] LABS: EOSINOPHILS % (MANUAL) 1 % (0-4); LYMPHOCYTES % (MANUAL) 14 % (16-48); MONOCYTES % (MANUAL) 6 % (0-11.0); NEUTROPHILS % (MANUAL) 79 (42-76); PLATELET ESTIMATE ADEQUATE
[2024-11-26] VITALS (7 sets, daily range): BP systolic 111–141; BP diastolic 66–89; TEMP 98.1–98.8; O2SAT 95–100
[2024-11-26] MEDS: VANCOMYCIN 1 GM in IV D5W 250ml IV SCH (06:18)
[2024-11-26 08:55] LABS: CALCIUM, SERUM 8.5 mg/dL (8.5-10.1); CREATININE 1.2 mg/dL (0.6-1.3); SODIUM SERUM 132.0 mmol/L (136-145); UREA NITROGEN, BLOOD 24.0 mg/dL (7-18)
[2024-11-26] MEDS: FREE WATER VIA TUBE FEEDING GT SCH (13:00)
[2024-11-27 00:02] VITALS: BP 141/68; TEMP 98.1; O2SAT 100
[2024-11-27 04:00] VITALS: BP 114/62; TEMP 98.8; O2SAT 95
[2024-11-27 07:34] LABS: CALCIUM, SERUM 7.7 mg/dL (8.5-10.1); CREATININE 1.0 mg/dL (0.6-1.3); SODIUM SERUM 135.0 mmol/L (136-145)
[2024-11-27 07:52] LABS: UREA NITROGEN, BLOOD 26.0 mg/dL (7-18)
[2024-11-27 08:00] VITALS: BP 117/61; TEMP 98.1; O2SAT 90; O2SAT 95
[2024-11-27 10:37] LABS: PLATELET COUNT (AUTO) 240 K/uL (150-450); RED BLOOD CELL COUNT(AUTO) 3.51 MIL/uL (4.5-6.0); RED CELL DISTRIBUTION WIDTH 15.8 % (11.5-15.0); WHITE BLOOD COUNT (AUTO) 14.4 K/uL (4.3-11.0)
[2024-11-27 12:00] VITALS: BP 120/58; TEMP 97.9; O2SAT 92; O2SAT 97
[2024-11-27 12:19] LABS: EOSINOPHILS % (MANUAL) 1 % (0-4); LYMPHOCYTES % (MANUAL) 12 % (16-48); MONOCYTES % (MANUAL) 5 % (0-11.0); NEUTROPHILS % (MANUAL) 82 (42-76); PLATELET ESTIMATE ADEQUATE
[2024-11-27 16:00] VITALS: BP 149/99; TEMP 97.7; O2SAT 90; O2SAT 97
[2024-11-27 20:00] VITALS: BP 133/76; TEMP 98.6; O2SAT 95
[2024-11-28] VITALS: BP 121/63; TEMP 98.8; O2SAT 95
[2024-11-28 04:00] VITALS: BP 117/57; TEMP 98.8; O2SAT 99
[2024-11-28 08:00] VITALS: BP 96/61; TEMP 98.2; O2SAT 95
[2024-11-28 12:00] VITALS: BP 106/56; TEMP 98.4; O2SAT 95
[2024-11-28 16:00] VITALS: BP 99/55; TEMP 98.2; O2SAT 97
[2024-11-28] MEDS: GLUCERNA 1.2 1,000 ML BOTTLE NG PRN (17:26)
[2024-11-28 20:00] VITALS: BP 114/54; TEMP 97.9; O2SAT 95
[2024-11-29] VITALS: BP 139/79; TEMP 97.9; O2SAT 95
[2024-11-29 04:00] VITALS: BP 116/54; TEMP 97.9; O2SAT 97
[2024-11-29 06:20] LABS: CALCIUM, SERUM 8.8 mg/dL (8.5-10.1); CREATININE 1.3 mg/dL (0.6-1.3); SODIUM SERUM 136.0 mmol/L (136-145); UREA NITROGEN, BLOOD 27.0 mg/dL (7-18)
[2024-11-29 07:49] LABS: PLATELET COUNT (AUTO) 324 K/uL (150-450); RED BLOOD CELL COUNT(AUTO) 3.66 MIL/uL (4.5-6.0); RED CELL DISTRIBUTION WIDTH 15.7 % (11.5-15.0); WHITE BLOOD COUNT (AUTO) 14.9 K/uL (4.3-11.0)
[2024-11-29 08:00] VITALS: BP 119/61; TEMP 98.1; O2SAT 96
[2024-11-29] MEDS: IV LR 1000 ML 1,000 ML IV PRN (14:46)
[2024-11-29 16:00] VITALS: BP 97/53; TEMP 98.4; O2SAT 96
[2024-11-30 00:27] VITALS: BP 111/67; TEMP 98.4; O2SAT 98
[2024-11-30 08:00] VITALS: BP 123/60; TEMP 97.9; O2SAT 96
[2024-11-30 11:10] VITALS: O2SAT 95
[2024-11-30 16:30] VITALS: O2SAT 94
[2024-11-30 16:37] VITALS: BP 104/62; TEMP 98.1; O2SAT 95
[2024-11-30 20:23] VITALS: O2SAT 94
[2024-12-01] VITALS (8 sets, daily range): BP systolic 99–130; BP diastolic 53–80; TEMP 98.1–99; O2SAT 94–98
[2024-12-01 07:22] LABS: PLATELET COUNT (AUTO) 403 K/uL (150-450); RED BLOOD CELL COUNT(AUTO) 3.48 MIL/uL (4.5-6.0); RED CELL DISTRIBUTION WIDTH 15.2 % (11.5-15.0); WHITE BLOOD COUNT (AUTO) 19.4 K/uL (4.3-11.0)
[2024-12-01] MEDS: AMIODARONE HCL 200 MG TABLET PO SCH (09:00)
[2024-12-01 09:07] LABS: CALCIUM, SERUM 9.2 mg/dL (8.5-10.1); CREATININE 1.4 mg/dL (0.6-1.3); PHOSPHORUS 2.9 mg/dL (2.5-4.9); SODIUM SERUM 140.0 mmol/L (136-145); UREA NITROGEN, BLOOD 25.0 mg/dL (7-18)
[2024-12-02 04:00] VITALS: BP 109/53; TEMP 98.4; O2SAT 97
[2024-12-02 07:51] LABS: PLATELET COUNT (AUTO) 408 K/uL (150-450); RED BLOOD CELL COUNT(AUTO) 3.63 MIL/uL (4.5-6.0); RED CELL DISTRIBUTION WIDTH 15.5 % (11.5-15.0); WHITE BLOOD COUNT (AUTO) 9.6 K/uL (4.3-11.0)
[2024-12-02 08:00] VITALS: BP 103/62; TEMP 98.1; O2SAT 95
[2024-12-02 08:04] LABS: CALCIUM, SERUM 8.9 mg/dL (8.5-10.1); CREATININE 1.2 mg/dL (0.6-1.3); PHOSPHORUS 2.6 mg/dL (2.5-4.9); SODIUM SERUM 142.0 mmol/L (136-145); UREA NITROGEN, BLOOD 22.0 mg/dL (7-18)
[2024-12-02 09:49] VITALS: BP 103/62
[2024-12-02] MEDS: ACETAMINOPHEN 650 MG/20.3 ML UDC PO PRN (09:50)
[2024-12-02] MEDS ORDERED: FURO-145 PO (12:37)
== END 2024-12-02 14:36 | DRG 871 ==
LOC: ER 18:22 → ICU 22:13 → TELE1 11-23 18:21 → MEDSG1 11-29 08:13
PROVIDERS: ADMIT Nurse Practitioner Family; ATTEND Nurse Practitioner Acute Care
PROC: 02HV33Z Insertion of Infusion Device into Superior Vena Cava, Percutaneous Approach (ICD-10-PCS; principal; 2024-11-22)
PROC: B548ZZA Ultrasonography of Superior Vena Cava, Guidance (ICD-10-PCS; 2024-11-22)
DX: A41.9 Sepsis, unspecified organism (principal); J15.69 Pneumonia due to other Gram-negative bacteria; J96.01 Acute respiratory failure with hypoxia; N17.0 Acute kidney failure with tubular necrosis; R65.21 Severe sepsis with septic shock; J69.0 Pneumonitis due to inhalation of food and vomit; J15.9 Unspecified bacterial pneumonia; E44.1 Mild protein-calorie malnutrition; D68.59 Other primary thrombophilia; I13.0 Hypertensive heart and chronic kidney disease with heart failure and stage 1 through stage 4 chronic kidney disease, or unspecified chronic kidney disease; E87.20 Acidosis, unspecified; G93.40 Encephalopathy, unspecified; E87.0 Hyperosmolality and hypernatremia; E87.1 Hypo-osmolality and hyponatremia; I50.9 Heart failure, unspecified; N18.9 Chronic kidney disease, unspecified; Z20.822 Contact with and (suspected) exposure to COVID-19; F03.90 Unspecified dementia, unspecified severity, without behavioral disturbance, psychotic disturbance, mood disturbance, and anxiety; E11.22 Type 2 diabetes mellitus with diabetic chronic kidney disease; Z66 Do not resuscitate; Z86.73 Personal history of transient ischemic attack (TIA), and cerebral infarction without residual deficits; I25.2 Old myocardial infarction; Y95 Nosocomial condition; N40.0 Benign prostatic hyperplasia without lower urinary tract symptoms; Z91.81 History of falling; F39 Unspecified mood [affective] disorder; Z96.642 Presence of left artificial hip joint; F41.9 Anxiety disorder, unspecified; Z79.51 Long term (current) use of inhaled steroids; Z79.890 Hormone replacement therapy; Z79.4 Long term (current) use of insulin; Z79.899 Other long term (current) drug therapy; D64.9 Anemia, unspecified; E03.9 Hypothyroidism, unspecified; E78.5 Hyperlipidemia, unspecified; E87.5 Hyperkalemia; Z93.1 Gastrostomy status; R13.10 Dysphagia, unspecified; H40.9 Unspecified glaucoma; E88.09 Other disorders of plasma-protein metabolism, not elsewhere classified; I48.91 Unspecified atrial fibrillation
CPT/HCPCS: 31720; 36415; 36569; 36600; 71045-TC; 74018; 80048-TC; 80076-TC; 80202-TC; 81001; 82803-TC; 82962-TC; 83605-TC; 83735-TC; 83880; 84100-TC; 84484-TC; 85025-TC; 85027-TC; 85730-TC; 87040-TC; 87081-TC; 87086-TC; 92526; 92611; 94762-TC; 94799-TC; 97110-TC; 97112-TC; 97530-TC; A4223; A4624; A6213; G0378; J0282; J0692; J1650; J1938; J2470; J3373; J3374; J3490; J7030; J7040; J7042; J7050; J7060; J7070; J7120